=== PATIENT | male | born 1970 | race Caucasian/White ===

== ENCOUNTER 2016-08-02 13:39 | Emergency (ER) | payer MEDICAID ==
[2016-08-02] MEDS ORDERED: ONDANSETRON 4 MG/2 ML VIAL IVP STA (13:53)
[2016-08-02] MEDS ORDERED: LIDOCAINE VISCOUS 2% 15 ML UDC MM STA (13:53)
[2016-08-02] MEDS ORDERED: SODIUM CHLORIDE 0.9% 1,000 ML IV ONE (13:53)
[2016-08-02] MEDS ORDERED: MAG HYDROX/AL HYDROX/SIMETH 30 ML UDC PO STA (13:53)
[2016-08-02] MEDS ORDERED: HYDROmorphone 1 MG/ML SYRINGE IVP STA ×2 (13:53→14:48)
[2016-08-02] MEDS ORDERED: ONDANSETRON 4 MG/2 ML VIAL ONE (14:04)
[2016-08-02] MEDS ORDERED: MAG HYDROX/AL HYDROX/SIMETH 30 ML UDC ONE (14:04)
[2016-08-02] MEDS ORDERED: LIDOCAINE VISCOUS 2% 15 ML UDC MM ONE (14:04)
[2016-08-02] MEDS ORDERED: HYDROmorphone 1 MG/ML SYRINGE ONE ×2 (14:04→14:56)
[2016-08-02] MEDS ORDERED: PANTOPRAZOLE 40 MG VIAL IVP STA (14:48)
[2016-08-02] MEDS ORDERED: PANTOPRAZOLE 40 MG VIAL ONE (14:56)
== END 2016-08-02 15:28 | disposition home or self-care (01) ==
DX: K29.50 Unspecified chronic gastritis without bleeding (principal); R73.9 Hyperglycemia, unspecified; R03.0 Elevated blood-pressure reading, without diagnosis of hypertension; K21.9 Gastro-esophageal reflux disease without esophagitis; Z87.19 Personal history of other diseases of the digestive system; F17.200 Nicotine dependence, unspecified, uncomplicated
CPT/HCPCS: 36415; 80053; 80320; 83690; 85025; 96361; 96374; 96375; 96376; 99283; 99284; A9270; J1170

== ENCOUNTER 2017-01-17 08:06 | Outpatient (CLI) | payer MEDICAID ==
[2017-01-17 12:45] LABS: BASOPHILS % (AUTO) 0.5 %; EOSINOPHILS # (AUTO) 0.2 10^3/uL (0.0-0.7); EOSINOPHILS % (AUTO) 3.7 %; HCT - HEMATOCRIT 40.8 % (42.0-52.0); HGB - HEMOGLOBIN 14.3 g/dL (14.0-18.0); LYMPHOCYTES # (AUTO) 2.2 10^3/uL (1.5-3.5); LYMPHOCYTES % (AUTO) 35.1 %; MEAN CORPUSCULAR HEMOGLOBIN 32.6 pg (27.0-31.0); MEAN CORPUSCULAR HGB CONC 35.1 g/dL (32.0-36.0); MEAN PLATELET VOLUME 9.4 fL (7.4-11.4); MONOCYTES # (AUTO) 0.5 10^3/uL (0.0-1.0); MONOCYTES % (AUTO) 7.9 %; NEUTROPHILS # (AUTO) 3.2 10^3/uL (1.5-6.6); NEUTROPHILS % (AUTO) 52.8 %; RED BLOOD COUNT 4.39 10^6/uL (4.70-6.10); RED CELL DISTRIBUTION WIDTH 12.5 % (12.0-15.0); UNCORRECTED WHITE BLOOD COUNT 6.1 x10^3/uL; WHITE BLOOD COUNT 6.1 x10^3/uL (4.8-10.8)
[2017-01-17 13:49] LABS: CALCIUM 9.2 mg/dL (8.5-10.3); POTASSIUM 4.5 mmol/L (3.5-5.0)
[2017-01-17 14:19] LABS: HEMOGLOBIN A1C 0.75 g/dL
== END 2017-01-17 08:07 | disposition home or self-care (01) ==
LOC: LAB.N 08:06
PROVIDERS: ATTEND Physician Assistant
DX: E78.5 Hyperlipidemia, unspecified (principal); K86.1 Other chronic pancreatitis; E11.9 Type 2 diabetes mellitus without complications
CPT/HCPCS: 36415; 80048; 82043; 83036; 84443; 85025

== ENCOUNTER 2017-01-23 08:45 | Outpatient (CLI) | payer MEDICAID ==
[2017-01-23 14:38] LABS: CHOL/HDL RATIO 6.9 (<5.0); CHOLESTEROL 215 mg/dL; HDL CHOLESTEROL 31 mg/dL; TRIGLYCERIDES 512 mg/dL
[2017-01-23 14:59] LABS: LDL CHOLESTEROL,DIRECT 96 mg/dL
== END 2017-01-23 08:46 | disposition home or self-care (01) ==
LOC: LAB.N 08:45
PROVIDERS: ATTEND Physician Assistant
DX: E78.5 Hyperlipidemia, unspecified (principal)
CPT/HCPCS: 36415; 80061

== ENCOUNTER 2017-02-21 15:13 | Emergency (ER) | payer MEDICAID ==
[2017-02-21] MEDS ORDERED: SODIUM CHLORIDE 0.9% 1,000 ML IV ONE (15:29)
--- NOTE | 2017-02-21 15:32 | ED Physician Documentation ---
PD HPI ABD PAIN - Stated complaint Stated Complaint: ABD PX,NAUSEA - Chief complaint Chief Complaint: Abd Pain - History obtained from History obtained from: Patient - History of Present Illness Timing - onset: How many days ago (10) Timing - duration: Days (10) Timing - details: Gradual onset, Still present, Waxing and waning Quality: Sharp, Pain Location: Epigastric Improved by: Laying still Worsened by: Eating, Position, Palpation Associated symptoms: Nausea. No: Fever, Vomiting, Diarrhea, Constipation Similar symptoms before: Diagnosis (pancreatitis) Recently seen: Not recently seen - Additional information Additional information: 46-year-old male with a history of recurrent episodes of pancreatitis has stopped drinking about 8 months ago and over the past 10 days he is again developed symptoms of epigastric pain and nausea. He has not had any vomiting with this he has not had any diarrhea. He feels like he might be dehydrated. He has had this happen to him previously and hydration usual the helps. Review of Systems Constitutional: reports: Fatigue. denies: Fever, Chills Eyes: denies: Decreased vision Ears: denies: Ear pain Nose: denies: Congestion Throat: denies: Sore throat Cardiac: denies: Chest pain / pressure, Palpitations Respiratory: denies: Dyspnea, Cough GI: reports: Abdominal Pain, Nausea. denies: Vomiting, Constipation, Diarrhea : denies: Dysuria, Frequency Skin: denies: Rash Musculoskeletal: denies: Neck pain, Back pain, Extremity pain Neurologic: denies: Generalized weakness, Focal weakness, Numbness PD PAST MEDICAL HISTORY - Past Medical History Cardiovascular: None Respiratory: None Neuro: None Endocrine/Autoimmune: None GI: GERD, Hiatal hernia, Pancreatitis : None HEENT: None Psych: Depression Musculoskeletal: None Derm: None - Past Surgical History Past Surgical History: No Derm: Other - Present Medications Home Medications: Ambulatory Orders Medication Instructions Recorded Confirmed Omeprazole [PriLOSEC] 20 mg PO DAILY #14 capsule 08/02/16 02/21/17 Gemfibrozil 600 mg pe PO DAILY 02/21/17 02/21/17 Methadone 100 mg pe PO DAILY 02/21/17 02/21/17 Sucralfate [Carafate] 1 gm PO ACHS #300 ml 02/21/17 metFORMIN [Glucophage] 500 mg pe PO DAILY 08/23/17 08/23/17 - Allergies Allergies/Adverse Reactions: Allergies Allergy/AdvReac Type Severity Reaction Status Date / Time shellfish derived Allergy Respiratory Verified 03/15/16 20:50 - Social History Does the pt smoke?: Yes Smoking Status: Current every day smoker Does the pt drink ETOH?: No Does the pt have substance abuse?: No - Immunizations Immunizations are current?: Yes - POLST Patient has POLST: No PD ED PE NORMAL - Vitals Vital signs reviewed: Yes (hypertensive ) - General General: No acute distress, Well developed/nourished - HEENT HEENT: Atraumatic, PERRL - Neck Neck: Supple, no meningeal sign - Cardiac Cardiac: RRR, No murmur - Respiratory Respiratory: No respiratory distress, Clear bilaterally - Abdomen Abdomen: Normal bowel sounds, Soft, Other (epigastric tenderness without garding or rebound tenderness) - Back Back: No CVA TTP, No spinal TTP - Derm Derm: Normal color, Warm and dry, No rash - Extremities Extremities: No deformity, No edema - Neuro Neuro: No motor deficit, No sensory deficit - Psych Psych: Normal mood, Normal affect Results - Vitals Vitals: Vital Signs - 24 hr 02/21/17 02/21/17 15:17 17:35 Heart Rate 64 64 Respiratory 16 16 Rate Blood Pressure 133/85 H 114/72 O2 Saturation 99 97 Oxygen O2 Source Room air - Labs Labs: Laboratory Tests 02/21/17 02/21/17 15:40 15:40 WBC 5.9 RBC 3.80 L Hgb 12.3 L Hct 35.3 L MCV 92.9 MCH 32.5 H MCHC 34.9 RDW 12.7 Plt Count 167 MPV 8.8 Neut # 3.1 Lymph # 2.3 [place] # 0.4 Eos # 0.2 Baso # 0.0 Absolute Nucleated RBC 0.00 Nucleated RBCs 0.0 Sodium 136 Potassium 3.6 Chloride 106 Carbon Dioxide 23 Anion Gap 7.0 BUN 14 Creatinine 0.9 Estimated GFR (MDRD) 92 Glucose 103 H Calcium 9.0 Total Bilirubin 0.9 AST 51 H ALT 73 H Alkaline Phosphatase 88 Total Protein 6.8 Albumin 4.5 Globulin 2.3 Albumin/Globulin Ratio 2.0 Lipase 61 H Procedures - IVC sono (time) 1522 Bedside IVC sono: IVC measures (cm) (1.32), IVC collapsed c insp (cm) (complete) , Dehydration (mild) PD MEDICAL DECISION MAKING - ED course Complexity details: reviewed old records, reviewed results, re-evaluated patient , considered differential, d/w patient ED course: 46-year-old male with a prior history of alcohol related pancreatitis has developed again symptoms of epigastric pain and nausea.His lipase is 61 mildly elevated and he has not vomited while he is in the emergency department. He does have persistent pain in the epigastric region and he is administered viscous lidocaine and Mylanta with improvement in his pain. I suspect his pain is related to a gastritis and I have offered Carafate and recommended he take his omeprazole as previously prescribed. Departure - Departure Disposition: 01 Home, Self Care Clinical Impression: Gastritis Qualifiers: Gastritis type: unspecified gastritis Chronicity: acute Gastritis bleeding: without bleeding Qualified Code(s): K29.00 - Acute gastritis without bleeding Condition: Stable Instructions: ED PUD Vs Gastritis Follow-Up: Bob Bentley PA-C [Primary Care Provider] - Prescriptions: Sucralfate [Carafate] 1 gm PO ACHS #300 ml
[2017-02-21 15:47] LABS: BASOPHILS % (AUTO) 0.3 %; EOSINOPHILS # (AUTO) 0.2 10^3/uL (0.0-0.7); HCT - HEMATOCRIT 35.3 % (42.0-52.0); HGB - HEMOGLOBIN 12.3 g/dL (14.0-18.0); LYMPHOCYTES # (AUTO) 2.3 10^3/uL (1.5-3.5); MEAN CORPUSCULAR HEMOGLOBIN 32.5 pg (27.0-31.0); MEAN CORPUSCULAR HGB CONC 34.9 g/dL (32.0-36.0); MEAN CORPUSCULAR VOLUME 92.9 fL (80.0-94.0); MEAN PLATELET VOLUME 8.8 fL (7.4-11.4); MONOCYTES # (AUTO) 0.4 10^3/uL (0.0-1.0); MONOCYTES % (AUTO) 6.9 %; NEUTROPHILS # (AUTO) 3.1 10^3/uL (1.5-6.6); NEUTROPHILS % (AUTO) 51.8 %; RED CELL DISTRIBUTION WIDTH 12.7 % (12.0-15.0); UNCORRECTED WHITE BLOOD COUNT 5.9 x10^3/uL; WHITE BLOOD COUNT 5.9 x10^3/uL (4.8-10.8)
[2017-02-21 16:00] LABS: BILIRUBIN,TOTAL 0.9 mg/dL (0.2-1.0); CREATININE 0.9 mg/dL (0.6-1.2); POTASSIUM 3.6 mmol/L (3.5-5.0); TOTAL PROTEIN 6.8 g/dL (6.7-8.2)
[2017-02-21] MEDS ORDERED: PANTOPRAZOLE 40 MG VIAL IVP STA (17:20)
[2017-02-21] MEDS ORDERED: LIDOCAINE VISCOUS 2% 15 ML UDC MM STA (17:22)
[2017-02-21] MEDS ORDERED: MAG HYDROX/AL HYDROX/SIMETH 30 ML UDC PO STA (17:22)
[2017-02-21] MEDS ORDERED: PANTOPRAZOLE 40 MG VIAL ONE (17:32)
[2017-02-21] MEDS ORDERED: LIDOCAINE VISCOUS 2% 15 ML UDC MM ONE (17:33)
[2017-02-21] MEDS ORDERED: MAG HYDROX/AL HYDROX/SIMETH 30 ML UDC ONE (17:33)
[2017-02-21 17:37] VITALS: BP 114/72
== END 2017-02-21 18:23 | disposition home or self-care (01) ==
LOC: ED 15:13
DX: K29.00 Acute gastritis without bleeding (principal); Z87.19 Personal history of other diseases of the digestive system; F17.200 Nicotine dependence, unspecified, uncomplicated
CPT/HCPCS: 36415; 80053; 83690; 85025; 96361; 96374; 99283; 99284; A9270

== ENCOUNTER 2017-04-01 19:35 | Emergency (ER) | payer MEDICAID ==
[2017-04-01] MEDS ORDERED: HYDROmorphone 1 MG/ML CARPUJECT IVP STA ×3 (19:45→21:44)
[2017-04-01] MEDS ORDERED: SODIUM CHLORIDE 0.9% 1,000 ML IV ONE (19:45)
[2017-04-01] MEDS ORDERED: ONDANSETRON 4 MG/2 ML VIAL IVP STA (19:46)
[2017-04-01] MEDS ORDERED: HYDROmorphone 1 MG/ML CARPUJECT ONE ×3 (19:51→21:55)
[2017-04-01] MEDS ORDERED: LIDOCAINE VISCOUS 2% 15 ML UDC MM STA (20:03)
[2017-04-01] MEDS ORDERED: MAG HYDROX/AL HYDROX/SIMETH 30 ML UDC PO STA (20:03)
[2017-04-01] MEDS ORDERED: PANTOPRAZOLE 40 MG VIAL IVP STA (20:05)
[2017-04-01 20:06] LABS: BASOPHILS % (AUTO) 0.4 %; EOSINOPHILS # (AUTO) 0.2 10^3/uL (0.0-0.7); EOSINOPHILS % (AUTO) 3.7 %; HCT - HEMATOCRIT 39.1 % (42.0-52.0); HGB - HEMOGLOBIN 13.5 g/dL (14.0-18.0); LYMPHOCYTES # (AUTO) 2.9 10^3/uL (1.5-3.5); LYMPHOCYTES % (AUTO) 50.5 %; MEAN CORPUSCULAR HEMOGLOBIN 32.3 pg (27.0-31.0); MEAN CORPUSCULAR HGB CONC 34.5 g/dL (32.0-36.0); MEAN CORPUSCULAR VOLUME 93.6 fL (80.0-94.0); MEAN PLATELET VOLUME 9.1 fL (7.4-11.4); MONOCYTES # (AUTO) 0.4 10^3/uL (0.0-1.0); NEUTROPHILS # (AUTO) 2.2 10^3/uL (1.5-6.6); NEUTROPHILS % (AUTO) 38.4 %; RED BLOOD COUNT 4.18 10^6/uL (4.70-6.10); RED CELL DISTRIBUTION WIDTH 12.7 % (12.0-15.0); UNCORRECTED WHITE BLOOD COUNT 5.7 x10^3/uL; WHITE BLOOD COUNT 5.7 x10^3/uL (4.8-10.8)
--- NOTE | 2017-04-01 20:06 | ED Physician Documentation ---
PD HPI ABD PAIN - Stated complaint Stated Complaint: ABD PX - Chief complaint Chief Complaint: Abd Pain - History obtained from History obtained from: Patient - History of Present Illness Timing - onset: Other (46-year-old gentleman with recurrent pancreatitis and gastritis from prior alcohol use, has not had a drink in 10 months. He developed upper abdominal pain that is burning and severe in nature starting yesterday, started to go away this morning but then came back after eating today. The pain does not radiate. There is no vomiting.) Review of Systems Constitutional: denies: Fever, Chills Throat: denies: Dental pain / toothache, Sore throat Cardiac: denies: Chest pain / pressure, Palpitations Respiratory: denies: Dyspnea PD PAST MEDICAL HISTORY - Past Medical History Cardiovascular: None Respiratory: None Neuro: None Endocrine/Autoimmune: None GI: GERD, Hiatal hernia, Pancreatitis : None HEENT: None Psych: Depression Musculoskeletal: None Derm: None - Past Surgical History Past Surgical History: No Derm: Other - Present Medications Home Medications: Ambulatory Orders Medication Instructions Recorded Confirmed Omeprazole [PriLOSEC] 20 mg PO DAILY #14 capsule 08/02/16 02/21/17 Gemfibrozil 600 mg pe PO DAILY 02/21/17 02/21/17 Methadone 100 mg pe PO DAILY 02/21/17 02/21/17 Sucralfate [Carafate] 1 gm PO ACHS #300 ml 02/21/17 metFORMIN [Glucophage] 500 mg pe PO DAILY 02/21/17 02/21/17 Lansoprazole 30 mg PO BID #60 capsule. 04/01/17 Oxycodone HCl/Acetaminophen 1 - 2 tab PO Q4H PRN #10 tablet 04/01/17 [Percocet 5-325 mg Tablet] - Allergies Allergies/Adverse Reactions: Allergies Allergy/AdvReac Type Severity Reaction Status Date / Time shellfish derived Allergy Respiratory Verified 04/01/17 19:40 - Social History Does the pt smoke?: Yes Smoking Status: Current every day smoker Does the pt drink ETOH?: No Does the pt have substance abuse?: No - Immunizations Immunizations are current?: Yes - POLST Patient has POLST: No PD ED PE NORMAL - Vitals Vital signs reviewed: Yes - General General: Alert and oriented X 3, Other (uncomfortable) - HEENT HEENT: PERRL, EOMI - Neck Neck: Supple, no meningeal sign, No bony TTP - Cardiac Cardiac: RRR, No murmur - Respiratory Respiratory: No respiratory distress, Clear bilaterally - Abdomen Abdomen: Other (Mild upper abdominal tenderness with normal bowel tones and no surgical signs) - Back Back: No CVA TTP, No spinal TTP - Derm Derm: Normal color, Warm and dry, No rash - Extremities Extremities: No deformity, No tenderness to palpate, No edema, No calf tenderness / cord - Neuro Neuro: Alert and oriented X 3, Normal speech - Psych Psych: Normal mood, Normal affect Results - Vitals Vitals: Vital Signs - 24 hr 04/01/17 19:37 Temperature 36.8 C Heart Rate 79 Respiratory 15 Rate Blood Pressure 131/88 H O2 Saturation 100 Oxygen O2 Source Room air - Labs Labs: Laboratory Tests 04/01/17 04/01/17 19:57 19:57 WBC 5.7 RBC 4.18 L Hgb 13.5 L Hct 39.1 L MCV 93.6 MCH 32.3 H MCHC 34.5 RDW 12.7 Plt Count 175 MPV 9.1 Neut # 2.2 Lymph # 2.9 [place] # 0.4 Eos # 0.2 Baso # 0.0 Absolute Nucleated RBC 0.00 Nucleated RBC % 0.0 Sodium 138 Potassium 4.2 Chloride 99 L Carbon Dioxide 28 Anion Gap 11.0 BUN 19 Creatinine 1.0 Estimated GFR (MDRD) 81 L Glucose 142 H Calcium 9.7 Total Bilirubin 0.7 AST 47 H ALT 44 Alkaline Phosphatase 57 Total Protein 6.8 Albumin 4.9 Globulin 1.9 L Albumin/Globulin Ratio 2.6 H Lipase 121 H Ethyl Alcohol < 5.0 PD MEDICAL DECISION MAKING - ED course ED course: 46-year-old gentleman with history of alcoholic pancreatitis and chronic gastritis, currently noncompliant with his PPI presents with upper abdominal pain of days duration and relatively benign abdominal examination. His labs are fairly unimpressive, no white count, very mild elevation in lipase. After IV fluids and divided doses of pain medications, GI cocktail, and IV Protonix he was feeling much better and remains nontender prior to discharge. Departure - Departure Disposition: 01 Home, Self Care Clinical Impression: Gastritis Qualifiers: Gastritis type: unspecified gastritis Chronicity: acute Gastritis bleeding: without bleeding Qualified Code(s): K29.00 - Acute gastritis without bleeding Condition: Good Record reviewed to determine appropriate education?: Yes Instructions: ED PUD Vs Gastritis Prescriptions: Lansoprazole 30 mg PO BID #60 capsule. Oxycodone HCl/Acetaminophen [Percocet 5-325 mg Tablet] 1 - 2 tab PO Q4H PRN #10 tablet PRN Reason: Pain Comments: Call your doctor to arrange a follow-up appointment, make the next available appointment. In the interim, return anytime if worse or if new symptoms develop. Your blood pressure was elevated today on check into the emergency department. This does not mean that you have hypertension, it is a common phenomenon to come to the emergency department and have elevated blood pressure. I recommend that she see your primary care physician within the week to have it rechecked when you are feeling better.
[2017-04-01 20:21] LABS: ALBUMIN/GLOBULIN RATIO 2.6 (1.0-2.2); BILIRUBIN,TOTAL 0.7 mg/dL (0.2-1.0); BUN - BLOOD UREA NITROGEN 19 mg/dL (6-20); CALCIUM 9.7 mg/dL (8.5-10.3); CARBON DIOXIDE - CO2 28 mmol/L (21-32); CHLORIDE 99 mmol/L (101-111); GFR - MDRD 81 (>89); GLUCOSE 142 mg/dL (70-100); LIPASE 121 U/L (22-51); POTASSIUM 4.2 mmol/L (3.5-5.0); SODIUM 138 mmol/L (135-145); TOTAL PROTEIN 6.8 g/dL (6.7-8.2)
[2017-04-01] MEDS ORDERED: ONDANSETRON 4 MG/2 ML VIAL ONE (20:52)
[2017-04-01] MEDS ORDERED: LIDOCAINE VISCOUS 2% 15 ML UDC MM ONE (20:54)
[2017-04-01] MEDS ORDERED: PANTOPRAZOLE 40 MG VIAL ONE (20:54)
[2017-04-01] MEDS ORDERED: MAG HYDROX/AL HYDROX/SIMETH 30 ML UDC ONE (20:54)
[2017-04-01] MEDS ORDERED: SODIUM CHLORIDE FLUSH 0.9% 10 ML SYRINGE IVP ONE (21:13)
[2017-04-01 21:51] VITALS: BP 134/78
== END 2017-04-01 21:56 | disposition home or self-care (01) ==
LOC: ED 19:35
DX: K29.00 Acute gastritis without bleeding (principal); R03.0 Elevated blood-pressure reading, without diagnosis of hypertension; Z86.39 Personal history of other endocrine, nutritional and metabolic disease; K21.9 Gastro-esophageal reflux disease without esophagitis
CPT/HCPCS: 36415; 80053; 80320; 83690; 85025; 96361; 96374; 96375; 96376; 99283; 99284; A9270; J1170

== ENCOUNTER 2017-04-03 18:33 | Emergency (ER) | payer MEDICAID ==
[2017-04-03 18:47] VITALS: BP 139/85
== END 2017-04-03 21:21 | disposition left against medical advice (07) ==
LOC: ED 18:33
DX: Z53.21 Procedure and treatment not carried out due to patient leaving prior to being seen by health care provider (principal)

== ENCOUNTER 2017-10-31 08:12 | Outpatient (CLI) | payer MEDICAID ==
[2017-10-31 13:47] LABS: BASOPHILS % (AUTO) 0.3 %; EOSINOPHILS # (AUTO) 0.2 10^3/uL (0.0-0.7); EOSINOPHILS % (AUTO) 3.8 %; HGB - HEMOGLOBIN 12.4 g/dL (14.0-18.0); LYMPHOCYTES # (AUTO) 1.6 10^3/uL (1.5-3.5); LYMPHOCYTES % (AUTO) 37.1 %; MEAN CORPUSCULAR HEMOGLOBIN 32.2 pg (27.0-31.0); MEAN CORPUSCULAR HGB CONC 34.6 g/dL (32.0-36.0); MEAN PLATELET VOLUME 8.4 fL (7.4-11.4); MONOCYTES # (AUTO) 0.4 10^3/uL (0.0-1.0); MONOCYTES % (AUTO) 8.3 %; NEUTROPHILS # (AUTO) 2.2 10^3/uL (1.5-6.6); NEUTROPHILS % (AUTO) 50.5 %; PLT - PLATELET COUNT 244 10^3/uL (130-450); RED BLOOD COUNT 3.85 10^6/uL (4.70-6.10); RED CELL DISTRIBUTION WIDTH 12.4 % (12.0-15.0); WHITE BLOOD COUNT 4.4 x10^3/uL (4.8-10.8)
[2017-10-31 13:51] LABS: ALBUMIN 4.7 g/dL (3.2-5.5); ALBUMIN/GLOBULIN RATIO 1.9 (1.0-2.2); ALKALINE PHOSPHATASE 50 IU/L (42-121); ALT ALANINE AMINOTRANSFERASE 36 IU/L (10-60); AST ASPARTATE AMINOTRANSFERASE 31 IU/L (10-42); BILIRUBIN,TOTAL 0.6 mg/dL (0.2-1.0); BUN - BLOOD UREA NITROGEN 23 mg/dL (6-20); CALCIUM 9.2 mg/dL (8.5-10.3); CARBON DIOXIDE - CO2 27 mmol/L (21-32); CHLORIDE 99 mmol/L (101-111); CHOL/HDL RATIO 5.2 (<5.0); CHOLESTEROL 262 mg/dL; CREATININE 0.9 mg/dL (0.6-1.2); GFR - MDRD 91 (>89); GLUCOSE 122 mg/dL (70-100); HDL CHOLESTEROL 50 mg/dL; LDL CHOLESTEROL,CALCULATED 175 mg/dL; LDL/HDL RATIO 3.5 (<3.6); SODIUM 133 mmol/L (135-145); TOTAL PROTEIN 7.2 g/dL (6.7-8.2); VLDL CHOLESTEROL 37 mg/dL
[2017-10-31 14:09] LABS: HB2 TOTAL 13.4 g/dL; HEMOGLOBIN A1C 0.69 g/dL; HEMOGLOBIN A1C % 6.9 % (4.6-6.2)
== END 2017-10-31 08:13 | disposition home or self-care (01) ==
LOC: LAB.N 08:12
PROVIDERS: ATTEND Physician Assistant Medical
DX: E78.5 Hyperlipidemia, unspecified (principal); E78.1 Pure hyperglyceridemia; E11.9 Type 2 diabetes mellitus without complications; R03.0 Elevated blood-pressure reading, without diagnosis of hypertension; F10.21 Alcohol dependence, in remission; F17.210 Nicotine dependence, cigarettes, uncomplicated; F33.9 Major depressive disorder, recurrent, unspecified
CPT/HCPCS: 36415; 80053; 80061; 82043; 83036; 83721; 85025

== ENCOUNTER 2018-01-13 15:21 | Emergency (ER) | payer OTHER, MEDICAID ==
--- NOTE | 2018-01-13 15:46 | ED Physician Documentation ---
PD HPI SKIN - Stated complaint Stated Complaint: RASH - Chief complaint Chief Complaint: Allergic Rx - History obtained from History obtained from: Patient - History of Present Illness Timing - onset: How many days ago (3) Timing - duration: Days (3) Timing - details: Gradual onset, Still present Location: Bodywide Quality / character: Itchy, Burning. No: Vesicular Improved by: No: Benadryl Associated symptoms: No: Fever, Myalgias, Headache, Dyspnea, N/V/D Contributing factors: No: Exposed to medication, Exposed to food, Insect bite / sting, Recent illness Similar symptoms before: Has not had sx before Recently seen: Not recently seen Review of Systems Constitutional: denies: Fever Nose: denies: Rhinorrhea / runny nose, Congestion Throat: reports: Sore throat (mild today) Cardiac: denies: Chest pain / pressure, Palpitations Respiratory: denies: Dyspnea, Cough, Wheezing GI: denies: Abdominal Pain, Nausea, Vomiting Skin: reports: Rash Neurologic: denies: Generalized weakness, Near syncope PD PAST MEDICAL HISTORY - Past Medical History Cardiovascular: None Respiratory: None Endocrine/Autoimmune: None GI: GERD, Hiatal hernia, Pancreatitis : None HEENT: None Psych: Depression Musculoskeletal: None Derm: None - Past Surgical History Past Surgical History: No Derm: Other - Present Medications Home Medications: Ambulatory Orders Medication Instructions Recorded Confirmed Omeprazole [PriLOSEC] 20 mg PO DAILY #14 capsule 08/02/16 02/21/17 Methadone 100 mg pe PO DAILY 02/21/17 02/21/17 metFORMIN [Glucophage] 500 mg pe PO DAILY 02/21/17 02/21/17 Cetirizine [ZyrTEC] 10 mg PO DAILY #15 tablet 01/13/18 Dexamethasone [Decadron] 4 mg PO DAILY #7 tablet 01/13/18 Famotidine [Pepcid] 20 mg PO ONCE #15 tablet 01/13/18 - Allergies Allergies/Adverse Reactions: Allergies Allergy/AdvReac Type Severity Reaction Status Date / Time shellfish derived Allergy Respiratory Verified 04/03/17 18:46 - Social History Does the pt smoke?: Yes Smoking Status: Current every day smoker Does the pt drink ETOH?: No Does the pt have substance abuse?: No - Immunizations Immunizations are current?: Yes - POLST Patient has POLST: No PD ED PE NORMAL - Vitals Vital signs reviewed: Yes - General General: Alert and oriented X 3, Well developed/nourished - HEENT HEENT: Ears normal, Other (throat exam shows mild edema of uvula. Else appears normal. ) - Neck Neck: Supple, no meningeal sign, No adenopathy - Cardiac Cardiac: RRR, No murmur - Respiratory Respiratory: Clear bilaterally - Abdomen Abdomen: Soft, Non tender - Derm Derm: Warm and dry, Other (diffuse patchy hives appearing rash. No vesicles seen. ) - Neuro Neuro: Alert and oriented X 3, No motor deficit, Normal speech Results - Vitals Vitals: Vital Signs - 24 hr 01/13/18 01/13/18 15:36 16:20 Temperature 36.6 C 36.7 C Heart Rate 100 90 Respiratory 16 18 Rate Blood Pressure 120/78 112/76 O2 Saturation 97 98 Oxygen O2 Source Room air PD MEDICAL DECISION MAKING - ED course Complexity details: considered differential (no obvious trigger for the reaction. ), d/w patient - Sepsis Event Vital Signs: Vital Signs - 24 hr 01/13/18 01/13/18 15:36 16:20 Temperature 36.6 C 36.7 C Heart Rate 100 90 Respiratory 16 18 Rate Blood Pressure 120/78 112/76 O2 Saturation 97 98 Oxygen O2 Source Room air Departure - Departure Disposition: 01 Home, Self Care Clinical Impression: Allergic reaction Qualifiers: Encounter type: initial encounter Qualified Code(s): T78.40XA - Allergy, unspecified, initial encounter Condition: Stable Record reviewed to determine appropriate education?: Yes Instructions: ED Allergic Reaction General Other Follow-Up: Geronimo Dooley PA-C [Primary Care Provider] - Prescriptions: Cetirizine [ZyrTEC] 10 mg PO DAILY #15 tablet Dexamethasone [Decadron] 4 mg PO DAILY #7 tablet Famotidine [Pepcid] 20 mg PO ONCE #15 tablet Comments: Often it is hard to identify the exact cause of an allergic reaction like this. We typically treated with antihistamines and steroids. Use cetirizine and famotidine antihistamines daily for the next week or 2. Add Benadryl short acting antihistamine every 6 hours if needed for itching and rash. Decadron daily for the next week which is a steroid to decrease the immune over response. Recheck if not improving over the next couple of days. Commonly this will go away and stay away. If it does not want to completely resolve or comes back soon in the near future, then it might require some allergy testing or such to figure out the trigger. Discharge Date/Time: 01/13/18 16:20
[2018-01-13] MEDS ORDERED: CETIRIZINE 10 MG TABLET PO STA (16:01)
[2018-01-13] MEDS ORDERED: DEXAMETHASONE 10 MG/ML VIAL PO STA (16:01)
[2018-01-13] MEDS ORDERED: FAMOTIDINE 20 MG TABLET PO STA (16:01)
[2018-01-13 16:23] VITALS: BP 112/76
== END 2018-01-13 16:20 | disposition home or self-care (01) ==
LOC: ED 15:21
DX: T78.40XA Allergy, unspecified, initial encounter (principal); F17.200 Nicotine dependence, unspecified, uncomplicated
CPT/HCPCS: 99283; A9270

== ENCOUNTER 2018-03-11 17:00 | Emergency (ER) | payer OTHER, MEDICAID ==
[2018-03-11 18:16] LABS: BASOPHILS % (AUTO) 0.2 %; EOSINOPHILS # (AUTO) 0.2 10^3/uL (0.0-0.7); EOSINOPHILS % (AUTO) 2.5 %; HGB - HEMOGLOBIN 12.5 g/dL (14.0-18.0); LYMPHOCYTES # (AUTO) 1.3 10^3/uL (1.5-3.5); LYMPHOCYTES % (AUTO) 15.9 %; MEAN CORPUSCULAR HEMOGLOBIN 32.4 pg (27.0-31.0); MEAN CORPUSCULAR HGB CONC 35.1 g/dL (32.0-36.0); MEAN CORPUSCULAR VOLUME 92.4 fL (80.0-94.0); MEAN PLATELET VOLUME 8.2 fL (7.4-11.4); MONOCYTES # (AUTO) 0.7 10^3/uL (0.0-1.0); MONOCYTES % (AUTO) 8.5 %; NEUTROPHILS # (AUTO) 5.9 10^3/uL (1.5-6.6); NEUTROPHILS % (AUTO) 72.9 %; PLT - PLATELET COUNT 221 10^3/uL (130-450); RED BLOOD COUNT 3.85 10^6/uL (4.70-6.10); RED CELL DISTRIBUTION WIDTH 12.3 % (12.0-15.0); WHITE BLOOD COUNT 8.1 x10^3/uL (4.8-10.8)
[2018-03-11 18:28] LABS: ALBUMIN 4.8 g/dL (3.2-5.5); ALBUMIN/GLOBULIN RATIO 1.5 (1.0-2.2); ALKALINE PHOSPHATASE 71 IU/L (42-121); ALT ALANINE AMINOTRANSFERASE 31 IU/L (10-60); AST ASPARTATE AMINOTRANSFERASE 20 IU/L (10-42); BILIRUBIN,TOTAL 0.6 mg/dL (0.2-1.0); BUN - BLOOD UREA NITROGEN 25 mg/dL (6-20); CALCIUM 9.8 mg/dL (8.5-10.3); CARBON DIOXIDE - CO2 30 mmol/L (21-32); CHLORIDE 95 mmol/L (101-111); GFR - MDRD 81 (>89); GLUCOSE 189 mg/dL (70-100); LIPASE 97 U/L (22-51); MAGNESIUM 2.2 mg/dL (1.7-2.8); SODIUM 134 mmol/L (135-145); TOTAL PROTEIN 8.1 g/dL (6.7-8.2)
[2018-03-11] MEDS ORDERED: ONDANSETRON 4 MG/2 ML VIAL IVP STA (18:51)
[2018-03-11] MEDS ORDERED: SODIUM CHLORIDE 0.9% 2,000 ML IV ONE (18:51)
[2018-03-11] MEDS ORDERED: HYDROmorphone 2 MG/ML VIAL IVP STA (18:51)
--- NOTE | 2018-03-11 18:54 | ED Physician Documentation ---
PD HPI ABD PAIN - Stated complaint Stated Complaint: BILAT LEG PX - Chief complaint Chief Complaint: Abd Pain - History obtained from History obtained from: Patient, Family - History of Present Illness Timing - onset: Other (47-year-old gentleman with recurrent alcoholic pancreatitis although has not had an alcoholic beverage in about 1.8 years presents with 4 days of epigastric and right upper quadrant pain consistent with prior episodes of pancreatitis. Because of that he has not been eating or drinking well and today developed right thigh cramps that are intermittent but at times severe.) Review of Systems Constitutional: denies: Fever, Chills GI: reports: Abdominal Pain, Nausea, Vomiting (once). denies: Diarrhea, Hematemesis : denies: Dysuria, Frequency PD PAST MEDICAL HISTORY - Past Medical History Cardiovascular: None Respiratory: None Endocrine/Autoimmune: None GI: GERD, Hiatal hernia, Pancreatitis : None HEENT: None Psych: Depression Musculoskeletal: None Derm: None - Past Surgical History Past Surgical History: No Derm: Other - Present Medications Home Medications: Ambulatory Orders Medication Instructions Recorded Confirmed Omeprazole [PriLOSEC] 20 mg PO DAILY #14 capsule 08/02/16 02/21/17 Methadone 100 mg pe PO DAILY 02/21/17 02/21/17 metFORMIN [Glucophage] 500 mg pe PO DAILY 02/21/17 02/21/17 Cetirizine [ZyrTEC] 10 mg PO DAILY #15 tablet 01/13/18 Dexamethasone [Decadron] 4 mg PO DAILY #7 tablet 01/13/18 Famotidine [Pepcid] 20 mg PO ONCE #15 tablet 01/13/18 - Allergies Allergies/Adverse Reactions: Allergies Allergy/AdvReac Type Severity Reaction Status Date / Time shellfish derived Allergy Respiratory Verified 04/03/17 18:46 - Social History Does the pt smoke?: Yes Smoking Status: Current every day smoker Does the pt drink ETOH?: No Does the pt have substance abuse?: No - Immunizations Immunizations are current?: Yes - POLST Patient has POLST: No PD ED PE NORMAL - Vitals Vital signs reviewed: Yes - General General: Alert and oriented X 3, No acute distress - Abdomen Abdomen: Normal bowel sounds, Soft, Non tender - Extremities Extremities: No deformity, No tenderness to palpate, No edema, No calf tenderness / cord - Neuro Neuro: Alert and oriented X 3 - Psych Psych: Normal mood, Normal affect Results - Vitals Vitals: Vital Signs - 24 hr 03/11/18 17:29 Temperature 37.2 C Heart Rate 101 H Respiratory 18 Rate Blood Pressure 126/97 H O2 Saturation 100 Oxygen O2 Source Room air - Labs Labs: Laboratory Tests 03/11/18 03/11/18 18:10 18:10 WBC 8.1 RBC 3.85 L Hgb 12.5 L Hct 35.6 L MCV 92.4 MCH 32.4 H MCHC 35.1 RDW 12.3 Plt Count 221 MPV 8.2 Neut # (Auto) 5.9 Lymph # (Auto) 1.3 L [place] # (Auto) 0.7 Eos # (Auto) 0.2 Baso # (Auto) 0.0 Absolute Nucleated RBC 0.00 Nucleated RBC % 0.0 Sodium 134 L Potassium 4.8 Chloride 95 L Carbon Dioxide 30 Anion Gap 9.0 BUN 25 H Creatinine 1.0 Estimated GFR (MDRD) 81 L Glucose 189 H Calcium 9.8 Magnesium 2.2 Total Bilirubin 0.6 AST 20 ALT 31 Alkaline Phosphatase 71 Total Protein 8.1 Albumin 4.8 Globulin 3.3 Albumin/Globulin Ratio 1.5 Lipase 97 H Ethyl Alcohol < 5.0 PD MEDICAL DECISION MAKING - ED course ED course: Sounds like he is having an episode of recurrent pancreatitis albeit without clear trigger that has caused him to have little p.o. intake and become dehydrated based on high BUN which probably caused the leg cramps. He is given IV fluid resuscitation. After IV fluids and a dose of Ativan he had no further leg cramping and his abdominal pain was much better, on repeat examination at 8:40 PM he remained nontender to palpation regarding his abdomen exam. - Sepsis Event Vital Signs: Vital Signs - 24 hr 03/11/18 17:29 Temperature 37.2 C Heart Rate 101 H Respiratory 18 Rate Blood Pressure 126/97 H O2 Saturation 100 Oxygen O2 Source Room air Departure - Departure Disposition: 01 Home, Self Care Clinical Impression: Chronic abdominal pain, Dehydration, Leg cramp Condition: Good Record reviewed to determine appropriate education?: Yes Instructions: Abdominal Pain Comments: Call your doctor to arrange a follow-up appointment, make the next available appointment. In the interim, return anytime if worse or if new symptoms develop. Your blood pressure was elevated today on check into the emergency department. This does not mean that you have hypertension, it is a common phenomenon to come to the emergency department and have elevated blood pressure. I recommend that you see your primary care physician within the week to have it rechecked when you are feeling better.
[2018-03-11] MEDS ORDERED: LORazepam 2 MG/ML VIAL IVP STA (20:05)
[2018-03-11] MEDS ORDERED: HYDROmorphone 1 MG/ML CARPUJECT IVP STA (20:45)
[2018-03-11 20:58] VITALS: BP 112/71
== END 2018-03-11 21:34 | disposition home or self-care (01) ==
LOC: ED 17:00
DX: G89.29 Other chronic pain (principal); R10.9 Unspecified abdominal pain; E86.0 Dehydration; R25.2 Cramp and spasm; F17.200 Nicotine dependence, unspecified, uncomplicated
CPT/HCPCS: 36415; 80053; 80320; 83690; 83735; 85025; 96374; 96375; 96376; 99283; J1170; J2060

== ENCOUNTER 2018-03-19 13:41 | Emergency (ER) | payer OTHER, MEDICAID ==
[2018-03-19 14:26] LABS: BASOPHILS % (AUTO) 0.4 %; EOSINOPHILS # (AUTO) 0.2 10^3/uL (0.0-0.7); EOSINOPHILS % (AUTO) 2.3 %; HGB - HEMOGLOBIN 12.2 g/dL (14.0-18.0); LYMPHOCYTES # (AUTO) 2.1 10^3/uL (1.5-3.5); LYMPHOCYTES % (AUTO) 28.6 %; MEAN CORPUSCULAR VOLUME 91.5 fL (80.0-94.0); MEAN PLATELET VOLUME 7.7 fL (7.4-11.4); MONOCYTES # (AUTO) 0.4 10^3/uL (0.0-1.0); MONOCYTES % (AUTO) 5.3 %; NEUTROPHILS # (AUTO) 4.6 10^3/uL (1.5-6.6); NEUTROPHILS % (AUTO) 63.4 %; PLT - PLATELET COUNT 281 10^3/uL (130-450); RED CELL DISTRIBUTION WIDTH 12.2 % (12.0-15.0); WHITE BLOOD COUNT 7.2 x10^3/uL (4.8-10.8)
[2018-03-19 14:26] LABS: BILIRUBIN,URINE NEGATIVE (NEGATIVE); GLUCOSE, URINE (UA) 250 mg/dL (NEGATIVE); KETONES,URINE (UA) TRACE mg/dL (NEGATIVE); LEUKOCYTE ESTERASE, URINE NEGATIVE (NEGATIVE); NITRITE,URINE NEGATIVE (NEGATIVE); OCCULT BLOOD,URINE TRACE-INTA (NEGATIVE); PROTEIN,URINE TRACE mg/dL (NEGATIVE); UROBILINOGEN,URINE 0.2 (NORMAL) E.U./dL (NORMAL)
[2018-03-19 14:27] LABS: CLARITY,URINE CLEAR (CLEAR)
[2018-03-19 14:43] LABS: ALBUMIN 4.6 g/dL (3.2-5.5); ALBUMIN/GLOBULIN RATIO 1.7 (1.0-2.2); ALKALINE PHOSPHATASE 69 IU/L (42-121); ALT ALANINE AMINOTRANSFERASE < 10 IU/L (10-60); AST ASPARTATE AMINOTRANSFERASE 18 IU/L (10-42); BILIRUBIN,TOTAL 0.4 mg/dL (0.2-1.0); BUN - BLOOD UREA NITROGEN 20 mg/dL (6-20); CALCIUM 9.4 mg/dL (8.5-10.3); CARBON DIOXIDE - CO2 27 mmol/L (21-32); CHLORIDE 96 mmol/L (101-111); CREATININE 1.3 mg/dL (0.6-1.2); GFR - MDRD 60 (>89); GLUCOSE 215 mg/dL (70-100); LIPASE 86 U/L (22-51); SODIUM 132 mmol/L (135-145); TOTAL PROTEIN 7.3 g/dL (6.7-8.2)
--- NOTE | 2018-03-19 16:58 | ED Physician Documentation ---
History of Present Illness - Stated complaint Stated Complaint: RT SIDE ABD PX - Chief complaint Chief Complaint: Abd Pain - Additonal information Additional information: hx from pt 2.5 weeks of right sided abd pain no fever nausea controlled with zofran no diarrhea not changed by eating worse with walking no prior surgery hx pancreatitis but this feel diff no know gallstones Review of Systems Constitutional: denies: Fever, Chills Cardiac: denies: Chest pain / pressure Respiratory: denies: Dyspnea GI: reports: Abdominal Pain, Nausea. denies: Vomiting, Diarrhea : denies: Dysuria, Hematuria Musculoskeletal: denies: Back pain Endocrine: denies: Easy bruising / bleeding Immunocompromised: denies: Immunocompromised PD PAST MEDICAL HISTORY - Past Medical History Cardiovascular: None Respiratory: None Endocrine/Autoimmune: None GI: GERD, Hiatal hernia, Pancreatitis : None HEENT: None Psych: Depression Musculoskeletal: None Derm: None - Past Surgical History Past Surgical History: No Derm: Other - Present Medications Home Medications: Ambulatory Orders Medication Instructions Recorded Confirmed Omeprazole [PriLOSEC] 20 mg PO DAILY #14 capsule 08/02/16 02/21/17 Methadone 100 mg pe PO DAILY 02/21/17 02/21/17 metFORMIN [Glucophage] 500 mg pe PO DAILY 02/21/17 02/21/17 Cetirizine [ZyrTEC] 10 mg PO DAILY #15 tablet 01/13/18 Dexamethasone [Decadron] 4 mg PO DAILY #7 tablet 01/13/18 Famotidine [Pepcid] 20 mg PO ONCE #15 tablet 03/19/18 Sucralfate 1 gm PO ACHS #120 tablet 03/19/18 - Allergies Allergies/Adverse Reactions: Allergies Allergy/AdvReac Type Severity Reaction Status Date / Time shellfish derived Allergy Respiratory Verified 03/19/18 13:49 - Social History Does the pt smoke?: Yes Smoking Status: Current every day smoker Does the pt drink ETOH?: No Does the pt have substance abuse?: No Additional Social History: out of pepcid and omaprazole at this time - Immunizations Immunizations are current?: Yes - POLST Patient has POLST: No PD ED PE NORMAL - Vitals Vital signs reviewed: Yes - Neck Neck: Supple, no meningeal sign - Cardiac Cardiac: RRR - Respiratory Respiratory: No respiratory distress, Clear bilaterally - Abdomen Abdomen: Soft, Other (minimal mid right abd pain, no rebound or guarding) - Derm Derm: Normal color - Neuro Neuro: Alert and oriented X 3 Results - Vitals Vitals: Vital Signs - 24 hr 03/19/18 03/19/18 03/19/18 13:44 15:33 16:43 Temperature 36.2 C L Heart Rate 90 87 77 Respiratory 16 18 18 Rate Blood Pressure 104/62 94/69 106/78 O2 Saturation 99 97 98 03/19/18 18:51 Temperature Heart Rate 69 Respiratory 12 Rate Blood Pressure 104/74 O2 Saturation 98 Oxygen O2 Source Room air - Tele (time rhythm occurred) 1850 Telemetry / rhythm strip: Other (no prolonged QT - checked because pt is prescribed zofran and methadone) - Labs Labs: Laboratory Tests 03/19/18 03/19/18 03/19/18 13:57 14:17 14:17 WBC 7.2 RBC 3.80 L Hgb 12.2 L Hct 34.8 L MCV 91.5 MCH 32.0 H MCHC 35.0 RDW 12.2 Plt Count 281 MPV 7.7 Neut # (Auto) 4.6 Lymph # (Auto) 2.1 [place] # (Auto) 0.4 Eos # (Auto) 0.2 Baso # (Auto) 0.0 Absolute Nucleated RBC 0.00 Nucleated RBC % 0.0 Sodium 132 L Potassium 4.6 Chloride 96 L Carbon Dioxide 27 Anion Gap 9.0 BUN 20 Creatinine 1.3 H Estimated GFR (MDRD) 60 L Glucose 215 H Calcium 9.4 Total Bilirubin 0.4 AST 18 ALT < 10 L Alkaline Phosphatase 69 Total Protein 7.3 Albumin 4.6 Globulin 2.7 Albumin/Globulin Ratio 1.7 Lipase 86 H Urine Color YELLOW Urine Clarity CLEAR Urine pH 6.0 Ur Specific [place] >=1.030 H Urine Protein TRACE Urine Glucose (UA) 250 H Urine Ketones TRACE Urine Occult Blood TRACE-INTA Urine Nitrite NEGATIVE Urine Bilirubin NEGATIVE Urine Urobilinogen 0.2 (NORMAL) Ur Leukocyte Esterase NEGATIVE Ur Microscopic Review NOT INDICATED Urine Culture Comments NOT INDICATED - Rads (name of study) CT AP Radiology: See rad report (acute on chronic pancreatiti, possible pancreatic mass vs inflammation, large hiatal hernia, no appy or bowel obstruction) PD MEDICAL DECISION MAKING - Sepsis Event Vital Signs: Vital Signs - 24 hr 09/03/19/18 03/19/18 13:44 15:33 16:43 Temperature 36.2 C L Heart Rate 90 87 77 Respiratory 16 18 18 Rate Blood Pressure 104/62 94/69 106/78 O2 Saturation 99 97 98 03/19/18 18:51 Temperature Heart Rate 69 Respiratory 12 Rate Blood Pressure 104/74 O2 Saturation 98 Oxygen O2 Source Room air Departure - Departure Disposition: 01 Home, Self Care Clinical Impression: Hiatal hernia Pancreatitis Qualifiers: Chronicity: acute Pancreatitis type: unspecified pancreatitis type Acute pancreatitis complication: unspecified Qualified Code(s): K85.90 - Acute pancreatitis without necrosis or infection, unspecified Instructions: Hiatal Hernia, ED Diet Clear Liquid, ED Pancreatitis Follow-Up: Albert Epperson MD [Provider Admit Priv/Credential] - Prescriptions: Famotidine [Pepcid] 20 mg PO ONCE #15 tablet Sucralfate 1 gm PO ACHS #120 tablet Comments: The CT scan shows a hiatal hernia and also acute exacerbation of your chronic pancreatitis. No gallbladder problems were seen. The radiologist is concerned there may be a mass in your pancreas - it could just be inflammation for the pancreatitis but the radiologist recommends you get a MRI - please have your PMD order this. I think you can go home at this time, but I recommend you stay on a clear liquid diet for the next three days to rest your pancreas. Continue your methadone for pain and zofran for vomiting I prescribed zantac and carafate to ease the pain from the hiatal hernia. And I also referred you to the surgical clinic for further evaluation of the hiatal hernia Forms: Activity restrictions
--- NOTE | 2018-03-19 18:01 | CT Report ---
Reason: abd pain right side Procedure Date: 03/19/2018 Accession Number: [id number] / [id number] Procedure: CT - Abdomen/Pelvis W/O CPT Code: FULL RESULT: EXAM: CT ABDOMEN AND PELVIS EXAM DATE: 03/19/2018 05:36 PM. CLINICAL HISTORY: Abd pain right side. COMPARISONS: ABDOMEN/PELVIS W/ 02/28/2016 4:42 PM. TECHNIQUE: Routine axial helical CT imaging was performed through the abdomen and pelvis without IV contrast. Reconstructions: Coronal and sagittal. In accordance with CT protocol optimization, one or more of the following dose reduction techniques were utilized for this exam: automated exposure control, adjustment of mA and/or KV based on patient size, or use of iterative reconstructive technique. FINDINGS: Lung Bases: Unremarkable. Abdominal Organs: The liver, spleen, adrenal glands, and kidneys demonstrate no acute abnormalities. There is chronic pancreatitis. There is ill-defined, heterogeneous soft tissue density within the pancreatic head region (image 29 series 3). Gallbladder/bile ducts: No significant abnormalities. Peritoneal Cavity: There is a large hiatal hernia. Small bowel demonstrates no acute abnormalities. There is moderate to large volume stool within colon. No evidence of appendicitis. No intraperitoneal free air or free fluid. No enlarged mesenteric or retroperitoneal lymph nodes. Pelvic Organs: No bladder stones or wall thickening. Noncontrast images of the visualized pelvic organs are unremarkable. Vasculature: Unremarkable. Other: None. IMPRESSION: 1 . There is chronic pancreatitis. There is suggestion of mild peripancreatic fat stranding which could represent acute pancreatitis. 2. There is ill-defined soft tissue density within the pancreatic head/uncinate process region which is difficult to separate from adjacent structures. This could be secondary to pancreatic inflammation. Pancreatic mass is not excluded on this study. Nonemergent pancreatic MRI could be used for further evaluation as indicated. 3. There is a large hiatal hernia. 4. There is moderate to large volume stool within colon. 5. No evidence of appendicitis or bowel obstruction.
[2018-03-19] MEDS ORDERED: ONDANSETRON 4 MG/2 ML VIAL IVP STA (18:24)
[2018-03-19] MEDS ORDERED: ACETAMINOPHEN 1,000 MG/100 ML 100 ML IV STA (18:27)
[2018-03-19] MEDS ORDERED: KETOROLAC 60 MG/2 ML VIAL IVP STA (18:28)
[2018-03-19] MEDS ORDERED: FAMOTIDINE 20 MG/50 ML 50 ML IV ONE (18:31)
[2018-03-19 18:53] VITALS: BP 104/74
[2018-03-19] MEDS: MORPHINE 2 MG/ML CARPUJECT IVP STA ×2 (19:13→19:23)
== END 2018-03-19 19:33 | disposition home or self-care (01) ==
LOC: ED 13:41
DX: K44.9 Diaphragmatic hernia without obstruction or gangrene (principal); K85.90 Acute pancreatitis without necrosis or infection, unspecified; F17.200 Nicotine dependence, unspecified, uncomplicated
CPT/HCPCS: 36415; 74176; 80053; 81003; 83690; 85025; 96365; 96375; 99283; 99284; J0131; 81001; 87086

== ENCOUNTER 2018-03-23 00:09 | Inpatient (IN) | payer OTHER, MEDICAID ==
[2018-03-23] MEDS ORDERED: SODIUM CHLORIDE 0.9% 1,000 ML IV ONE (00:18)
[2018-03-23 00:46] LABS: BASOPHILS % (AUTO) 0.7 %; EOSINOPHILS # (AUTO) 0.2 10^3/uL (0.0-0.7); EOSINOPHILS % (AUTO) 3.8 %; HGB - HEMOGLOBIN 11.7 g/dL (14.0-18.0); LYMPHOCYTES # (AUTO) 1.4 10^3/uL (1.5-3.5); LYMPHOCYTES % (AUTO) 32.2 %; MEAN CORPUSCULAR HEMOGLOBIN 32.3 pg (27.0-31.0); MEAN CORPUSCULAR HGB CONC 35.2 g/dL (32.0-36.0); MEAN CORPUSCULAR VOLUME 91.7 fL (80.0-94.0); MEAN PLATELET VOLUME 8.3 fL (7.4-11.4); MONOCYTES # (AUTO) 0.4 10^3/uL (0.0-1.0); MONOCYTES % (AUTO) 9.8 %; NEUTROPHILS # (AUTO) 2.4 10^3/uL (1.5-6.6); NEUTROPHILS % (AUTO) 53.5 %; PLT - PLATELET COUNT 242 10^3/uL (130-450); RED BLOOD COUNT 3.64 10^6/uL (4.70-6.10); RED CELL DISTRIBUTION WIDTH 12.2 % (12.0-15.0); WHITE BLOOD COUNT 4.5 x10^3/uL (4.8-10.8)
[2018-03-23 00:57] LABS: ALBUMIN 4.3 g/dL (3.2-5.5); ALBUMIN/GLOBULIN RATIO 1.6 (1.0-2.2); BILIRUBIN,TOTAL 0.6 mg/dL (0.2-1.0); CALCIUM 9.3 mg/dL (8.5-10.3); CREATININE 0.9 mg/dL (0.6-1.2)
[2018-03-23] MEDS ORDERED: diphenhydrAMINE INJ 50 MG/ML VIAL IVP STA (01:04)
[2018-03-23] MEDS ORDERED: HYDROmorphone 1 MG/ML CARPUJECT IVP STA (01:04)
[2018-03-23] MEDS ORDERED: PROMETHAZINE INJ 25 MG in SODIUM CHLORIDE 0.9% 50 ML IV STA (01:04)
[2018-03-23 01:22] LABS: BILIRUBIN,URINE NEGATIVE (NEGATIVE); GLUCOSE, URINE (UA) >=1000 mg/dL (NEGATIVE); KETONES,URINE (UA) NEGATIVE (NEGATIVE); LEUKOCYTE ESTERASE, URINE NEGATIVE (NEGATIVE); NITRITE,URINE NEGATIVE (NEGATIVE); OCCULT BLOOD,URINE SMALL (NEGATIVE); PROTEIN,URINE NEGATIVE (NEGATIVE); UROBILINOGEN,URINE 2 E.U./dL (NORMAL)
[2018-03-23 01:23] LABS: CLARITY,URINE CLEAR (CLEAR)
[2018-03-23 01:27] LABS: BACTERIA,URINE None Seen /HPF (None Seen); SQUAMOUS EPITHELIAL CELL,UR MOD Squamous (<= Few)
[2018-03-23] MEDS ORDERED: IOPAMIDOL-300 50 ML VIAL ONE (01:33)
[2018-03-23] MEDS ORDERED: IOPAMIDOL-300 100 ML VIAL ONE (01:34)
[2018-03-23] MEDS ORDERED: HYDROmorphone 2 MG/ML VIAL IVP STA (02:25)
[2018-03-23] MEDS ORDERED: IOPAMIDOL-300 100 ML VIAL IVP ONE (02:29)
[2018-03-23] MEDS ORDERED: IOPAMIDOL-300 50 ML VIAL PO ONE (02:29)
--- NOTE | 2018-03-23 03:09 | ED Physician Documentation ---
PD HPI ABD PAIN - Stated complaint Stated Complaint: ABD PX - Chief complaint Chief Complaint: Abd Pain - History obtained from History obtained from: Patient - Additional information Additional information: 47-year-old male presents the emergency department with increasing epigastric pain over the past several days. The patient was recently seen in the emergency department and diagnosed with pancreatitis and was treated as an outpatient. The patient returns for increasing pain. The patient describes the pain as severe. The patient reports decreased p.o. intake. The patient denies significant lower abdominal pain. The patient denies any alcohol usage. The patient denies fevers or chills. Symptoms are described as severe. No radiation. No other associated symptoms Review of Systems Constitutional: reports: Fatigue. denies: Fever, Chills Eyes: denies: Discharge Ears: denies: Ear pain Nose: denies: Rhinorrhea / runny nose Throat: denies: Sore throat Cardiac: denies: Chest pain / pressure Respiratory: denies: Dyspnea GI: reports: Abdominal Pain. denies: Diarrhea : denies: Dysuria Skin: denies: Rash Musculoskeletal: denies: Neck pain Neurologic: denies: Generalized weakness Immunocompromised: denies: Chemotherapy PD PAST MEDICAL HISTORY - Past Medical History Past Medical History: Yes Cardiovascular: None Respiratory: None Neuro: None Endocrine/Autoimmune: None GI: GERD, Hiatal hernia, Pancreatitis : None HEENT: None Psych: Depression Musculoskeletal: None Derm: None - Past Surgical History Past Surgical History: No Derm: Other - Present Medications Home Medications: Ambulatory Orders Medication Instructions Recorded Confirmed Omeprazole [PriLOSEC] 20 mg PO DAILY #14 capsule 08/02/16 02/21/17 RX: Methadone 100 mg pe PO DAILY 02/21/17 02/21/17 RX: metFORMIN [Glucophage] 500 mg pe PO DAILY 02/21/17 02/21/17 Dexamethasone [Decadron] 4 mg PO DAILY #7 tablet 01/13/18 RX: Cetirizine [ZyrTEC] 10 mg PO DAILY #15 tablet 01/13/18 RX: Famotidine [Pepcid] 20 mg PO ONCE #15 tablet 03/19/18 RX: Sucralfate 1 gm PO ACHS #120 tablet 03/19/18 - Allergies Allergies/Adverse Reactions: Allergies Allergy/AdvReac Type Severity Reaction Status Date / Time shellfish derived Allergy Respiratory Verified 03/23/18 00:18 - Social History Does the pt smoke?: Yes Smoking Status: Current every day smoker Does the pt drink ETOH?: No Does the pt have substance abuse?: No - Immunizations Immunizations are current?: Yes - POLST Patient has POLST: No PD ED PE NORMAL - General General: Alert and oriented X 3. No: No acute distress (The patient appears quite uncomfortable) - HEENT HEENT: Atraumatic, PERRL, EOMI - Neck Neck: No JVD - Cardiac Cardiac: RRR, Strong equal pulses - Respiratory Respiratory: No respiratory distress - Abdomen Abdomen: Soft. No: Non tender (Epigastric tenderness, no rebound or peritoneal signs) - Derm Derm: Normal color - Extremities Extremities: No deformity, No edema - Neuro Neuro: Alert and oriented X 3, Normal speech - Psych Psych: Normal affect Results - Vitals Vitals: Vital Signs - 24 hr 03/23/18 03/23/18 03/23/18 00:16 01:35 02:17 Temperature 37.2 C Heart Rate 95 Respiratory 18 17 16 Rate Blood Pressure 153/92 H O2 Saturation 99 03/23/18 03/23/18 02:28 03:18 Temperature 37.1 C Heart Rate 75 Respiratory 18 16 Rate Blood Pressure 126/76 O2 Saturation 100 Oxygen O2 Source Room air - Labs Labs: Laboratory Tests 03/23/18 03/23/18 03/23/18 00:30 00:30 01:20 WBC 4.5 L RBC 3.64 L Hgb 11.7 L Hct 33.4 L MCV 91.7 MCH 32.3 H MCHC 35.2 RDW 12.2 Plt Count 242 MPV 8.3 Neut # (Auto) 2.4 Lymph # (Auto) 1.4 L [place] # (Auto) 0.4 Eos # (Auto) 0.2 Baso # (Auto) 0.0 Absolute Nucleated RBC 0.00 Nucleated RBC % 0.0 Sodium 134 L Potassium 4.3 Chloride 98 L Carbon Dioxide 29 Anion Gap 7.0 BUN 15 Creatinine 0.9 Estimated GFR (MDRD) 91 Glucose 265 H Calcium 9.3 Total Bilirubin 0.6 AST 189 H ALT 96 H Alkaline Phosphatase 202 H Total Protein 7.0 Albumin 4.3 Globulin 2.7 Albumin/Globulin Ratio 1.6 Lipase 124 H Urine Color YELLOW Urine Clarity CLEAR Urine pH 7.0 Ur Specific [place] 1.015 Urine Protein NEGATIVE Urine Glucose (UA) >=1000 H Urine Ketones NEGATIVE Urine Occult Blood SMALL H Urine Nitrite NEGATIVE Urine Bilirubin NEGATIVE Urine Urobilinogen 2 H Ur Leukocyte Esterase NEGATIVE Urine RBC 6-10 H Urine WBC 0-3 Ur Squamous Epith Cells MOD Squamous H Urine Bacteria None Seen Ur Microscopic Review INDICATED Urine Culture Comments NOT INDICATED - Rads (name of study) CT abd/pelvis Radiology: Final report received (1. Grossly abnormal appearance of the pancreas, likely a sequela of severe chronic pancreatitis. Stranding around the pancreas is again seen potentially related to acute pancreatitis. ) PD MEDICAL DECISION MAKING - ED course ED course: The patient has worsening pancreatitis and worsening on the CT scan with a now pseudocyst. The patient will require admission to the hospital for further management of his acute condition. The findings and plan were discussed with the patient understands and agrees. The case discussed with the hospitalist Dr. Soriano who accepts the patient onto her service. - Sepsis Event Vital Signs: Vital Signs - 24 hr 03/23/18 03/23/18 03/23/18 00:16 01:35 02:17 Temperature 37.2 C Heart Rate 95 Respiratory 18 17 16 Rate Blood Pressure 153/92 H O2 Saturation 99 03/23/18 03/23/18 02:28 03:18 Temperature 37.1 C Heart Rate 75 Respiratory 18 16 Rate Blood Pressure 126/76 O2 Saturation 100 Oxygen O2 Source Room air Departure - Departure Disposition: 66 [facility] DC/Xfer Clinical Impression: Acute pancreatitis Discharge Date/Time: 03/23/18 04:28
--- NOTE | 2018-03-23 03:24 | CT Report ---
Reason: Worsening epigastric pain, history of recurrent pa Procedure Date: 03/23/2018 Accession Number: [id number] / [id number] Procedure: CT - Abdomen/Pelvis W/ CPT Code: FULL RESULT: EXAM: CT ABDOMEN AND PELVIS EXAM DATE: 03/23/2018 02:40 AM. CLINICAL HISTORY: Worsening epigastric pain, history of recurrent pancreatitis. COMPARISONS: ABDOMEN/PELVIS W/O 03/19/2018 5:32 PM, ABDOMEN/PELVIS W/ 02/28/2016 4:42 PM. TECHNIQUE: Routine helical CT imaging was performed through the abdomen and pelvis. IV contrast: 100 mL Isovue 300. Enteric contrast: No. Reconstructions: Coronal and sagittal. In accordance with CT protocol optimization, one or more of the following dose reduction techniques were utilized for this exam: automated exposure control, adjustment of mA and/or KV based on patient size, or use of iterative reconstructive technique. FINDINGS: ABDOMEN: Liver: No significant abnormality. Stomach/Distal Esophagus: There is a medium to large sliding hiatal and paraesophageal hernia. No significant change compared to the prior examinations. Gallbladder: No definite calcified gallstones. Bile Ducts: Moderate intrahepatic biliary ductal dilation is present. There is dilation of the CBD with narrowing/occlusion within the pancreatic head region. Pancreas: Multiple pancreas calcifications are present, several of which are likely intraductal in location. There is moderate ductal dilation within the pancreas neck and head region. There is relative atrophy of the distal body and the tail of the pancreas. Architectural distortion and scarring coupled with scirrhous changes seen within the retroperitoneum around the pancreatic head and uncinate process. There is a small low-density abnormality along the medial most aspect of the pancreas uncinate process, measuring 1.5 cm. No significant change from the recent prior study. Spleen: No significant abnormality. Kidneys: No suspicious solid appearing lesion. No hydronephrosis. Adrenals: No significant abnormality. Bowel: There is a low-density collection adjacent to the duodenal bulb, measuring 2.3 cm. This is likely located within the bowel wall. It is unchanged in configuration from the prior exam. There is no evidence of bowel obstruction. Moderate to large amount of retained colonic fecal material is present. Appendix: Normal. Lymph Nodes: No pathologically enlarged nodes. 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 Aorta is normal in caliber. There is mild to moderate aortic atherosclerosis. Fluid: No significant free fluid. Abdominal Wall: No significant abnormality. Other: There is a nonspecific rim-calcified right lower quadrant fecalith versus an area of fat necrosis. PELVIS: Prostate and Seminal Vesicles: No significant abnormality. Bladder: No significant abnormality. Lymph Nodes: No pathologically enlarged nodes. Fluid: No significant free fluid. Other: None. BONES: No suspicious bony lesions. LOWER CHEST: No significant consolidation or effusion. Atelectasis within the lung bases bilaterally. IMPRESSION: 1. Grossly abnormal appearance of the pancreas, likely a sequela of severe chronic pancreatitis. Stranding around the pancreas is again seen, potentially related to acute pancreatitis. 2. Architectural distortion around the pancreas head and uncinate process is noted, making it difficult to exclude an underlying pancreas neoplasm. Unfortunately imaging may not reliably exclude a neoplasm in this location. These findings are new from the prior 2016 study. 3. 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 4. There is a small 1.5 cm low density within the medial most aspect of the pancreas uncinate process, potentially another pseudocyst. Attention on follow-up examination recommended. 5. Associated occlusion of the portal splenic confluence as well as the CBD is noted. There is moderate intrahepatic biliary dilation. 6. Moderate amount of retained colonic fecal material suggesting constipation. There is no small bowel obstruction. Appendix is normal. 7. There is a medium to large sliding hiatal and paraesophageal hernia, similar to the prior studies. [facility]
[2018-03-23] MEDS ORDERED: PROCHLORPERAZINE 10 MG/2 ML VIAL IVP PRN (03:58)
[2018-03-23] MEDS ORDERED: ONDANSETRON ODT 4 MG TABLET TL PRN (03:58)
[2018-03-23] MEDS ORDERED: ONDANSETRON 4 MG/2 ML VIAL IVP PRN (03:58)
--- NOTE | 2018-03-23 04:04 | HISTORY & PHYSICAL EXAMINATION ---
Chief Complaint - Chief Complaint Chief Complaint: abdominal pain in patient w chronic pancreatitis History of Present Illness - Admitted From Admitted From:: ER/home - History Obtained From Records Reviewed: [facility] History obtained from: patient Exam Limitations: none - History of Present Illness HPI Comment/Other: He is a 47-year-old man who has known chronic pancreatitis from chronic alcohol abuse. He has had multiple admissions to our hospital ever [place]. He thinks probably that he has had a total of 15-20 admissions over all since 2005. His last admission was in 2015. He has stopped drinking around the last time of his admission. 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 Although he has chronic daily abdominal aching, he has been able to maintain his weight. Eat his food. And control his pain. It has been a good year and 1/2-2 years. He has not gone back to drinking. His diet is steady. But for some reason he began having abdominal pain again. He was seen in the emergency room by Dr. Ruiz on March 19. He been having 2-1/2 weeks of abdominal pain on the right side. There is no diarrhea with this. No fever, no chills. Eating did not make it better or make it worse. If he moved around too much the pain definitely got worse. He was afebrile, and has low blood pressure but that is chronic for him. He had minimal right-sided abdominal pain but no rebound or guarding and normal bowel sounds. His white cell count was 7.2. And a CAT scan showed a hiatal hernia, acute exacerbation of pancreatitis with possible early pancreatic pseudocyst versus inflammation. He did not have a bowel obstruction or appendicitis. He was sent home on pain medicines, diet control. He cannot take the pain anymore and came back now. Again there is no emesis. No fever no chills. No jaundice. History - Past Medical History Cardiovascular: reports: None Respiratory: reports: None Neuro: reports: None Endocrine/Autoimmune: reports: Type 2 diabetes GI: reports: GERD, Hiatal hernia, Pancreatitis : reports: None HEENT: reports: None Psych: reports: Depression Musculoskeletal: reports: None Derm: reports: None MRSA Hx?: No - Past Surgical History Derm: reports: Other - Family & Social History Family History Comment/Other: Dad is in his 70s and has no major medical illnesses. Mom in her 50s of suicide. One brother of a suicide according to corners report. One brother is healthy. No children Living arrangement: At home Living Situation: With spouse/s.o. Social History Notes: He was born and raised in [place]. Moved to [place] and lives there with his first in [facility] in [place]. Most of his hospitalizations for pancreatitis were in [place]. He is currently to his second . He moved [place] in 2013 when he was dating his girlfriend. She is now his . They came to see her parents, like at some much they state. 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 Smokes 1 pack per day. Denies any problems with heroin cocaine and LSD speed - Substance History Use: Uses substance without health or social issues: Tobacco Use Issues: uncomplicated Abuse: Recurrent use of substance despite neg consequences: NONE Dependence: Experiences withdrawal or developed tolerances: NONE - POLST Patient has POLST: No POLST Status: Full Code (However he only wants CPR. He does not want intubation.) Meds/Allgy - Home Medications Home Medications: Ambulatory Orders Medication Instructions Recorded Confirmed Omeprazole [PriLOSEC] 20 mg PO DAILY #14 capsule 08/02/16 02/21/17 Methadone 100 mg pe PO DAILY 02/21/17 02/21/17 metFORMIN [Glucophage] 500 mg pe PO DAILY 02/21/17 02/21/17 Cetirizine [ZyrTEC] 10 mg PO DAILY #15 tablet 01/13/18 Dexamethasone [Decadron] 4 mg PO DAILY #7 tablet 01/13/18 Famotidine [Pepcid] 20 mg PO ONCE #15 tablet 03/19/18 Sucralfate 1 gm PO ACHS #120 tablet 03/19/18 - Allergies Allergies/Adverse Reactions: Allergies Allergy/AdvReac Type Severity Reaction Status Date / Time shellfish derived Allergy Respiratory Verified 03/23/18 00:18 Review of Systems - Constitutional Constitutional: denies: Fatigue, Fever, Chills, Malaise - Eyes Eyes: denies: Pain, Irritation, Amaurosis, Field loss, Vision loss - Ears, Nose & Throat Ears, Nose & Throat: denies: Ear pain, Hearing loss, Hearing aids, Vertigo, Nasal obstruction, Nasal congestion, Sore throat - Cardiovascular Cariovascular: denies: Irregular heart rate, Palpitations, Chest pain, Edema, Lightheadedness, Syncope, Exertional dyspnea, Decr. exercise tolerance - Respiratory Respiratory: denies: Cough, Sputum production, Wheezing, SOB at rest, SOB with exertion, Apnea - Gastrointestinal Gastrointestinal: reports: Abdominal pain, Nausea, Reflux/heartburn. denies: Abdominal distention, Constipation, Diarrhea, Change in bowel habits, Rectal b leeding, Bloody stools, Vomiting, Bile emesis, Coffee grounds emesis - Genitourinary Genitourinary: denies: Dysuria, Frequency, Urgency - Musculoskeletal Musculoskeletal: denies: Muscle pain, Back pain, Muscle aches - Integumentary Integumentary: denies: Rash, Lesions - Neurological Neurological: denies: General weakness, Focal weakness, Headache, Dizziness - Psychiatric Psychiatric: reports: Depression, Anxiety. denies: Suicidal - Endocrine Endocrine: denies: Polyuria, Polydypsia, Polyphagia - Hematologic/Lymphatic Hematologic/Lymphatic: denies: Anemia, Bruising Exam - Vital Signs Reviewed Vital Signs: Yes Vital Signs: Vital Signs x48h Temp Pulse Resp BP Pulse Ox 03/23/18 03:59 36.9 C 62 16 124/75 99 03/23/18 03:18 16 03/23/18 02:28 37.1 C 75 18 126/76 100 03/23/18 02:17 16 03/23/18 01:35 17 03/23/18 00:16 37.2 C 95 18 153/92 H 99 - Physical Exam General Appearance: positive: No acute distress, Alert, Other (Thin white male who looks older than stated age. At this time lying comfortably in bed on his back.) Eyes Bilateral: positive: PERRL ENT: positive: Pharynx nml. negative: Dry mucous membranes Neck: positive: No JVD. negative: Stiff neck, Carotid bruit Respiratory: positive: Chest non-tender. negative: Wheezes, Rales, Rhonchi Cardiovascular: positive: Regular rate & rhythm. negative: Systolic murmur, Gallop/S4, Friction rub Peripheral Pulses: positive: 1+ Abdomen: positive: Nml bowel sounds, Tenderness. negative: Guarding, Rebound, Hepatomegaly Skin: positive: Warm, Dry. negative: Pallor Extremities: positive: Non-tender, No pedal edema Neurologic/Psychiatric: positive: Oriented x3, CN's nml (2-12), Motor nml, Sensation nml Conclusion/Plan - Problem List (1) Chronic pancreatitis Conclusion/Plan: This gentleman has unfortunate complications of his alcohol abuse with numerous episodes of acute pancreatitis now settling into chronic pancreatitis. He has not had any alcohol for close to 2 years. Current Ninfa criteria is low. He is below the age of 55, glucose is greater than 200, white cell count is less than 16,000, AST is less than 250, and LDH is less than 350. We will watch his BUN over the next 2 days, base deficit, hematocrit, PO2, calcium and how much fluid he needs to recalculate his criteria. Currently he is 1 point with mortality being 1%. Plan: N.p.o. status except for ice chips IV fluids for hydration IV antiemetics for nausea control Wash daily lipase Once abdominal pain resolved, start advancing diet. He usually takes 24-48 hours to improve per his usual history. Qualifiers: Pancreatitis type: alcohol induced Qualified Code(s): K86.0 - Alcohol-induced chronic pancreatitis (2) GERD (gastroesophageal reflux disease) Conclusion/Plan: IV proton pump inhibitor while he is in the hospital Qualifiers: Esophagitis presence: esophagitis presence not specified Qualified Code(s): K21.9 - Gastro-esophageal reflux disease without esophagitis (3) Abnormal liver enzymes Conclusion/Plan: He does not have recent alcohol abuse. He feels like his pain is different than it usually is and more right-sided than left-sided. Plan: MRCP in the morning. If his ductal anatomy is severely abnormal and the cause of his pancreatitis, he may need to be transferred to higher level of care for gastroenterology intervention. (4) Chronic pain Conclusion/Plan: He has been seen in a methadone clinic. Currently getting oral methadone. Since he is n.p.o. and on like him to avoid oral medications at this time, changed to Dilaudid as needed. Qualifiers: Chronic pain type: other chronic pain Qualified Code(s): G89.29 - Other chr onic pain (5) Type 2 diabetes mellitus, controlled Conclusion/Plan: being kept npo for his pancreatitis. start SS insulin for non eating. Qualifiers: Diabetes mellitus correction insulin use: without correction use Diabetes mellitus complication status: without complication Qualified Code(s): E11.9 - Type 2 diabetes mellitus without complications - Lab Results Fish Bones: 03/23/18 00:30 03/23/18 00:30 - Diagnostic Imaging Results Diagnostic Imaging Results: positive: Final report reviewed Diagnostic Imaging Results Comments: His sodium is 134. Carbon dioxide is 29. He does not have an anion gap. Random glucose is 265. AST is rising. He was 18 on the 18 and is now 189. ALT was less than 10 and is now 96. Alk phos is up at 202. Lipase is 124. Uri nalysis is a small amount of occult blood, glucosuria, urobilinogen, no ketones. White cell count is low at 4.5 hemoglobin is 11.7 hematocrit 33.4. Abdomen pelvis CT was redone. Liver has no significant abnormality. Medium to large sliding hiatal hernia and paraesophageal hernia. No definite calcified gallstones. A moderate intrahepatic biliary ductal dilation is present. There is dilation of the common bile duct with narrowing occlusion within the pancreatic head region. He has multiple pancreatic calcifications present, several of which are likely intraductal in location. There is moderate ductal dilation within the pancreas neck and head region. Relative atrophy of the distal body and the tail of the pancreas. Architectural distortion and scarring couple with cirrhosis changes seen within the retroperitoneum and around the pancreatic head and uncinate process. There is a small low-density abnormality along the medialmost aspect of the pancreas uncinate process, measuring 1.5 cm. Spleen was normal. Kidneys were normal. He has a small 2.3 cm density located within the bowel wall adjacent to the duodenal bulb. This is unchanged from previous CT. Core Measures - Anticipated LOS I expect patient to be DC'd or transferred within 96 hours.: Yes - DVT/VTE - Prophylaxis VTE/DVT Device ordered at admit?: Yes
[2018-03-23] MEDS: SODIUM CHLORIDE 0.9% 1,000 ML IV SCH ×2 (05:00→14:11)
[2018-03-23] MEDS: HYDROmorphone 1 MG/ML CARPUJECT IVP PRN ×9 (05:00→22:37)
[2018-03-23 05:33] LABS: HB2 TOTAL 11.2 g/dL; HEMOGLOBIN A1C 0.82 g/dL; HEMOGLOBIN A1C % 8.8 % (4.6-6.2)
[2018-03-23] MEDS: PANTOPRAZOLE 40 MG VIAL IVP SCH (06:56)
[2018-03-23] MEDS: INSULIN REGULAR HUMAN 100 UNIT/1 ML 10 ML MDV SUBQ SCH ×3 (07:00→17:53)
[2018-03-23] MEDS: SODIUM CHLORIDE FLUSH 0.9% 10 ML SYRINGE IVP PRN (07:25)
[2018-03-23] MEDS: SODIUM CHLORIDE FLUSH 0.9% 10 ML SYRINGE IVP SCH ×2 (10:19→16:35)
[2018-03-23] MEDS: POLYETHYLENE GLYCOL 3350 17 GM PACKET PO SCH (10:37)
--- NOTE | 2018-03-23 12:45 | PROVIDER PROGRESS NOTE ---
Hospitalist Cross-cover Note - Cross-Cover Note Cross-Cover Note: Patient was seen and examined this morning. He has been admitted with acute pancreatitis. The patient is receiving IV pain medication, IV fluids and IV antiemetics. He is currently n.p.o. He states this morning the pain is better controlled but he just received a dose of IV Dilaudid a few minutes earlier. The plan is for the patient to be hospitalized over the weekend and get an MRCP on Sunday to better assess his biliary ducts as there is concern for possible neoplasm on the CT scan.
[2018-03-23] MEDS: KETOROLAC 30 MG/ML VIAL IVP PRN (19:13)
[2018-03-24] MEDS: INSULIN REGULAR HUMAN 100 UNIT/1 ML 10 ML MDV SUBQ SCH ×2 (00:03→06:00)
[2018-03-24] MEDS: SODIUM CHLORIDE 0.9% 1,000 ML IV SCH ×3 (00:05→20:28)
[2018-03-24] MEDS: HYDROmorphone 1 MG/ML CARPUJECT IVP PRN ×9 (00:39→23:37)
[2018-03-24] MEDS: SODIUM CHLORIDE FLUSH 0.9% 10 ML SYRINGE IVP SCH ×4 (01:10→23:32)
[2018-03-24] MEDS: KETOROLAC 30 MG/ML VIAL IVP PRN (02:37)
[2018-03-24 06:07] LABS: VBG PCO2 41.9 mmHg (41-51); VBG PH 7.386 (7.31-7.41); VBG PO2 58.9 mmHg (25-47); VBG TOTAL CO2 25.9 mmol/L (24-29)
[2018-03-24 06:08] LABS: VBG BASE EXCESS -0.5 mmol/L (-2 - +2)
[2018-03-24 06:13] LABS: BASOPHILS % (AUTO) 0.3 %; EOSINOPHILS # (AUTO) 0.2 10^3/uL (0.0-0.7); HGB - HEMOGLOBIN 10.9 g/dL (14.0-18.0); LYMPHOCYTES # (AUTO) 1.2 10^3/uL (1.5-3.5); LYMPHOCYTES % (AUTO) 15.8 %; MEAN CORPUSCULAR HEMOGLOBIN 32.5 pg (27.0-31.0); MEAN CORPUSCULAR HGB CONC 34.8 g/dL (32.0-36.0); MEAN CORPUSCULAR VOLUME 93.4 fL (80.0-94.0); MEAN PLATELET VOLUME 8.3 fL (7.4-11.4); MONOCYTES # (AUTO) 0.5 10^3/uL (0.0-1.0); MONOCYTES % (AUTO) 6.1 %; NEUTROPHILS # (AUTO) 5.6 10^3/uL (1.5-6.6); NEUTROPHILS % (AUTO) 74.8 %; PLT - PLATELET COUNT 201 10^3/uL (130-450); RED BLOOD COUNT 3.36 10^6/uL (4.70-6.10); RED CELL DISTRIBUTION WIDTH 12.4 % (12.0-15.0); WHITE BLOOD COUNT 7.5 x10^3/uL (4.8-10.8)
[2018-03-24 06:22] LABS: ALBUMIN 3.6 g/dL (3.2-5.5); ALBUMIN/GLOBULIN RATIO 1.6 (1.0-2.2); BILIRUBIN,TOTAL 0.4 mg/dL (0.2-1.0); CALCIUM 8.5 mg/dL (8.5-10.3); CREATININE 0.7 mg/dL (0.6-1.2); TOTAL PROTEIN 5.9 g/dL (6.7-8.2)
[2018-03-24] MEDS: PANTOPRAZOLE 40 MG VIAL IVP SCH (06:58)
[2018-03-24] MEDS: METHADONE 5 MG TABLET PO SCH (08:31)
[2018-03-24] MEDS: LIPASE/PROTEASE/AMYLASE CAPSULE PO SCH ×3 (08:31→17:04)
[2018-03-24] MEDS: INSULIN ASPART 300 UNIT/3 ML PEN SUBQ SCH ×4 (08:32→20:22)
[2018-03-24] MEDS: POLYETHYLENE GLYCOL 3350 17 GM PACKET PO SCH (08:37)
[2018-03-24] MEDS: SUCRALFATE 1 GM/10 ML UDC PO SCH ×3 (11:19→20:28)
--- NOTE | 2018-03-24 11:41 | PROVIDER PROGRESS NOTE ---
Assessment/Plan - Problem List (1) Chronic pancreatitis Qualifiers: Pancreatitis type: alcohol induced Qualified Code(s): K86.0 - Alcohol- induced chronic pancreatitis Assessment/Plan: This gentleman has unfortunate complications of his alcohol abuse with numerous episodes of acute pancreatitis now settling into chronic pancreatitis. He has not had any alcohol for close to 2 years. Current Ninfa criteria is low. He is below the age of 55, glucose is greater than 200, white cell count is less than 16,000, AST is less than 250, and LDH is less than 350. We will watch his BUN over the next 2 days, base deficit, hematocrit, PO2, calcium and how much fluid he needs to recalculate his criteria. Currently he is 1 point with mortality being 1%. The patient is much improved this morning. Patient's amylase and lipase have also improved down to 27 and 56 respectively Patient states his abdominal pain is improved we will try to wean down the IV Dilaudid and restart his home methadone dose Patient states his nausea is controlled and he feels like he can eat Patient will be started on a clear liquid diet and we will advance as patient ca n tolerate. Patient will get an MRCP tomorrow morning to evaluate CT findings for possible pancreatic neoplasm. If MRCP is inconclusive the patient will need outpatient follow-up with an endoscopic ultrasound. Qualifiers: Pancreatitis type: alcohol induced Qualified Code(s): K86.0 - Alcohol- induced chronic pancreatitis (2) GERD (gastroesophageal reflux disease) Conclusion/Plan: IV proton pump inhibitor while he is in the hospital Qualifiers: Esophagitis presence: esophagitis presence not specified Qualified Code(s): K21.9 - Gastro-esophageal reflux disease without esophagitis (3) Abnormal liver enzymes Conclusion/Plan: He does not have recent alcohol abuse. He feels like his pain is different than it usually is and more right-sided than left-sided. Plan: MRCP in the morning. If his ductal anatomy is severely abnormal and the cause of his pancreatitis, he may need to be transferred to higher level of care for gastroenterology intervention. (4) Chronic pain Conclusion/Plan: He has been seen in a methadone clinic. Currently getting oral methadone. Will switch to PO methadone today and decrease frequency of dilaudid Qualifiers: Chronic pain type: other chronic pain Qualified Code(s): G89.29 - Other chronic pain (5) Type 2 diabetes mellitus, controlled Conclusion/Plan: Place on DM diet and SS insulin today BG well controlled Qualifiers: Diabetes mellitus mcc insulin use: without mcc use Diabetes mellitus complication status: without complication Qualified Code(s): E11.9 - Type 2 diabetes mellitus without complications - Current Meds Current Meds: Current Medications Generic Name Dose Route Start Last Admin Trade Name Freq PRN Reason Stop Dose Admin Lipase/Protease/Amylase 3 cap 03/24/18 08:00 03/24/18 08:[address] 5,000/17,000/27,000 Group Home PO 3 cap TIDWM DORA Administration Hydromorphone HCl 1 mg 03/24/18 07:45 03/24/18 11:14 Dilaudid Inj Carp IVP 1 mg Q6H PRN Administration Pain 8 to 10 Sodium Chloride 1,000 mls @ 100 mls/hr 03/23/18 04:00 03/24/18 10:25 Normal Saline 0.9% IV 100 mls/hr .Q10H DORA Administration Insulin Aspart 1 - 5 unit 03/24/18 08:00 03/24/18 08:32 Novolog SUBQ 1 unit 0800,1200,1700,2100 DORA Administration Protocol Ketorolac Tromethamine 30 mg 03/23/18 17:30 03/24/18 02:37 Toradol Inj (30mg) IVP 03/28/18 17:29 30 mg Q6HR PRN Administration PAIN Methadone HCl 105 mg 03/24/18 09:00 03/24/18 08:31 PO 105 mg DAILY DORA Administration Pantoprazole Sodium 40 mg 03/23/18 07:00 03/24/18 06:58 Protonix IVP 40 mg QDAC DORA Administration Polyethylene Glycol 17 gm 03/23/18 09:00 03/24/18 08:37 Miralax PO 17 gm DAILY DORA Administration Sodium Chloride 10 ml 03/23/18 03:58 03/23/18 07:25 Normal Saline Flush 0.9% IVP 10 ml PRN PRN Administration NEEDED PER PROVIDER ORDERS Sodium Chloride 10 ml 03/23/18 09:00 03/24/18 06:58 Normal Saline Flush 0.9% IVP 10 ml 0100,0900,1700 DORA Administration Sucralfate 1 gm 03/24/18 11:00 03/24/18 11:19 Carafate PO 1 gm ACHS DORA Administration - Lab Result Lab results reviewed: Yes Fish Bone Diagrams: 03/24/18 05:35 03/24/18 05:35 - Diagnostic Imaging Results Diagnostic Imaging Results: Final report reviewed - Additional Planning Condition/Complexity: Improved My Orders: My Active Orders 03/23/18 17:30 Ketorolac Inj (30Mg) [Toradol Inj (30Mg)] 30 mg IVP Q6HR PRN 03/24/18 07:45 HYDROmorphone INJ CARP [Dilaudid Inj Carp] 1 mg IVP Q6H PRN 03/24/18 07:46 Blood Glucose Checks - Eating [RC] 0800,1200,1700,2100 Initiate Hypoglycemia Protocol [RC] .protocol 03/24/18 08:00 Insulin Aspart [NovoLOG] 1 - 5 unit SUBQ 0800,1200,1700,2100 Lipase/Protease/Amylase [Pancrelipase Dr 5,000/17,000/27,000 Group Home] 3 cap PO TIDWM 03/24/18 09:00 Methadone 105 mg PO DAILY 03/24/18 11:00 Sucralfate [Carafate] 1 gm PO ACHS 03/24/18 Lunch Clear Liquid Diet [DIET] 03/25/18 05:00 AMYLASE [CHEM] DAILYLAB 03/26/18 05:00 AMYLASE [CHEM] DAILYLAB Plan Discussed with:: Patient Time Spent: 31-60 minutes Subjective - Subjective Patient Reports: Feeling Better, Resting Comfortably, Abdominal Pain (IMproved), Nausea (Improved), Other (No fevers or chills) Nursing Reports: No Complaints Objective Vital Signs: Vital Signs - 24 hr 03/23/18 03/23/18 03/23/18 11:32 14:16 14:18 Temperature 36.9 C 37.1 C Heart Rate 63 Heart Rate [ 65 63 Apical] Respiratory 20 17 Rate Blood Pressure [Left Brachial artery] Blood Pressure 127/68 [Right Ankle] Blood Pressure 96/58 L [Right Brachial artery] O2 Saturation 100 99 03/23/18 03/23/18 03/24/18 15:20 23:26 05:29 Temperature 37.1 C 37.0 C 36.5 C Heart Rate Heart Rate [ 66 61 57 L Apical] Respiratory 19 16 16 Rate Blood Pressure 107/61 100/61 100/62 [Left Brachial artery] Blood Pressure [Right Ankle] Blood Pressure [Right Brachial artery] O2 Saturation 96 96 96 03/24/18 08:00 Temperature 36.9 C Heart Rate Heart Rate [ 67 Apical] Respiratory 18 Rate Blood Pressure 106/61 [Left Brachial artery] Blood Pressure [Right Ankle] Blood Pressure [Right Brachial artery] O2 Saturation 98 Oxygen O2 Source Room air I&O (Last 24 Hrs): Intake and Output Totals x24h 03/22/18 03/23/18 03/24/18 23:59 23:59 23:59 Intake Total 2811.000 1508.333 Balance 2811.000 1508.333 General: Alert, Oriented x3, Cooperative, No acute distress, Other (Thin) HEENT: Atraumatic, PERRLA, EOMI, Mucous membr. moist/pink Neck: Supple, No JVD, No thyromegaly, +2 carotid pulse wo bruit, No LAD Lymphatic: no adenopathy Neuro: Alert, Non Focal, CN 2-12 Grossly Intact, Oriented Times 3 Cardiovascular: Regular rate, Normal S1, Normal S2, No murmurs Respiratory: Chest non-tender, No respiratory distress, Breath sounds nml Abdomen: Normal bowel sounds, Soft, No tenderness, No hepatospenomegaly, Other (Mild tenderness in the RUQ) Extremities: No clubbing, No cyanosis, No edema, Normal pulses Skin: No rashes, No breakdown - Results Results: Laboratory Results WBC 7.5 x10^3/uL (4.8-10.8) 03/24/18 05:35 RBC 3.36 10^6/uL (4.70-6.10) L 03/24/18 05:35 Hgb 10.9 g/dL (14.0-18.0) L 03/24/18 05:35 Hct 31.4 % (42.0-52.0) L 03/24/18 05:35 MCV 93.4 fL (80.0-94.0) 03/24/18 05:35 MCH 32.5 pg (27.0-31.0) H 03/24/18 05:35 MCHC 34.8 g/dL (32.0-36.0) 03/24/18 05:35 RDW 12.4 % (12.0-15.0) 03/24/18 05:35 Plt Count 201 10^3/uL (130-450) 03/24/18 05:35 MPV 8.3 fL (7.4-11.4) 03/24/18 05:35 Neut # (Auto) 5.6 10^3/uL (1.5-6.6) 03/24/18 05:35 Lymph # (Auto) 1.2 10^3/uL (1.5-3.5) L 03/24/18 05:35 Mcmullen # (Auto) 0.5 10^3/uL (0.0-1.0) 03/24/18 05:35 Eos # (Auto) 0.2 10^3/uL (0.0-0.7) 03/24/18 05:35 Baso # (Auto) 0.0 10^3/uL (0.0-0.1) 03/24/18 05:35 Absolute Nucleated RBC 0.00 x10^3/uL 03/24/18 05:35 Nucleated RBC % 0.0 /100WBC 03/24/18 05:35 VBG pH 7.386 (7.31-7.41) 03/24/18 05:35 VBG pCO2 41.9 mmHg (41-51) 03/24/18 05:35 VBG pO2 58.9 mmHg (25-47) H 03/24/18 05:35 VBG HCO3 24.6 mmol/L (23-28) 03/24/18 05:35 VBG Total CO2 25.9 mmol/L (24-29) 03/24/18 05:35 VBG O2 Saturation 91.0 % (60-80) H 03/24/18 05:35 VBG Base Excess -0.5 mmol/L (-2 - +2) 03/24/18 05:35 Sodium 137 mmol/L (135-145) 03/24/18 05:35 Potassium 4.4 mmol/L (3.5-5.0) 03/24/18 05:35 Chloride 106 mmol/L (101-111) 03/24/18 05:35 Carbon Dioxide 24 mmol/L (21-32) 03/24/18 05:35 Anion Gap 7.0 (6-13) 03/24/18 05:35 BUN 12 mg/dL (6-20) 03/24/18 05:35 Creatinine 0.7 mg/dL (0.6-1.2) 03/24/18 05:35 Estimated GFR (MDRD) 122 (>89) 03/24/18 05:35 Glucose 120 mg/dL (70-100) H 03/24/18 05:35 POC Whole Bld Glucose 162 mg/dL (70 - 100) H 03/24/18 07:52 Glycated Hemoglobin 8.8 % (4.6-6.2) H 03/23/18 04:55 Estim Average Glucose 206 (70-100) H 03/23/18 04:55 Calcium 8.5 mg/dL (8.5-10.3) 03/24/18 05:35 Total Bilirubin 0.4 mg/dL (0.2-1.0) 03/24/18 05:35 AST 55 IU/L (10-42) H 03/24/18 05:35 ALT 97 IU/L (10-60) H 03/24/18 05:35 Alkaline Phosphatase 134 IU/L (42-121) H 03/24/18 05:35 Total Protein 5.9 g/dL (6.7-8.2) L 03/24/18 05:35 Albumin 3.6 g/dL (3.2-5.5) 03/24/18 05:35 Globulin 2.3 g/dL (2.1-4.2) 03/24/18 05:35 Albumin/Globulin Ratio 1.6 (1.0-2.2) 03/24/18 05:35 Amylase 27 U/L (28-100) L 03/24/18 05:35 Lipase 56 U/L (22-51) H 03/24/18 05:35 Urine Color YELLOW 03/23/18 01:20 Urine Clarity CLEAR (CLEAR) 03/23/18 01:20 Urine pH 7.0 PH (5.0-7.5) 03/23/18 01:20 Ur Specific [place] 1.015 (1.002-1.030) 03/23/18 01:20 Urine Protein NEGATIVE mg/dL (NEGATIVE) 03/23/18 01:20 Urine Glucose (UA) >=1000 mg/dL (NEGATIVE) H 03/23/18 01:20 Urine Ketones NEGATIVE mg/dL (NEGATIVE) 03/23/18 01:20 Urine Occult Blood SMALL (NEGATIVE) H 03/23/18 01:20 Urine Nitrite NEGATIVE (NEGATIVE) 03/23/18 01:20 Urine Bilirubin NEGATIVE (NEGATIVE) 03/23/18 01:20 Urine Urobilinogen 2 E.U./dL (NORMAL) H 03/23/18 01:20 Ur Leukocyte Esterase NEGATIVE (NEGATIVE) 03/23/18 01:20 Urine RBC 6-10 /HPF (0-5) H 03/23/18 01:20 Urine WBC 0-3 /HPF (0-3) 03/23/18 01:20 Ur Squamous Epith Cells MOD Squamous (<= Few) H 03/23/18 01:20 Urine Bacteria None Seen /HPF (None Seen) 03/23/18 01:20 Ur Microscopic Review INDICATED 03/23/18 01:20 Urine Culture Comments NOT INDICATED 03/23/18 01:20 ABX Reporting Has patient been on IV antibiotics over the past 48 hours?: No Current Medications - Current Medications Current Medications: Active Medications Generic Name Dose Route Start Last Admin Trade Name Freq PRN Reason Stop Dose Admin Lipase/Protease/Amylase 3 cap 03/24/18 08:00 03/24/18 08:[address] 5,000/17,000/27,000 Group Home PO 3 cap TIDWM DORA Administration Hydromorphone HCl 1 mg 03/24/18 07:45 03/24/18 11:14 Dilaudid Inj Carp IVP 1 mg Q6H PRN Administration Pain 8 to 10 Sodium Chloride 1,000 mls @ 100 mls/hr 03/23/18 04:00 03/24/18 10:25 Normal Saline 0.9% IV 100 mls/hr .Q10H DORA Administration Insulin Aspart 1 - 5 unit 03/24/18 08:00 03/24/18 08:32 Novolog SUBQ 1 unit 0800,1200,1700,2100 DORA Administration Protocol Ketorolac Tromethamine 30 mg 03/23/18 17:30 03/24/18 02:37 Toradol Inj (30mg) IVP 03/28/18 17:29 30 mg Q6HR PRN Administration PAIN Methadone HCl 105 mg 03/24/18 09:00 03/24/18 08:31 PO 105 mg DAILY DORA Administration Ondansetron HCl 4 mg 03/23/18 03:58 Zofran Inj IVP Q6HR PRN Nausea / Vomiting Ondansetron HCl 4 mg 03/23/18 03:58 Zofran Odt TL Q6HR PRN Nausea / Vomiting Pantoprazole Sodium 40 mg 03/23/18 07:00 03/24/18 06:58 Protonix IVP 40 mg QDAC DORA Administration Polyethylene Glycol 17 gm 03/23/18 09:00 03/24/18 08:37 Miralax PO 17 gm DAILY DORA Administration Prochlorperazine Edisylate 10 mg 03/23/18 03:58 Compazine Inj IVP Q6HR PRN Nausea / Vomiting Sodium Chloride 10 ml 03/23/18 03:58 03/23/18 07:25 Normal Saline Flush 0.9% IVP 10 ml PRN PRN Administration NEEDED PER PROVIDER ORDERS Sodium Chloride 10 ml 03/23/18 09:00 03/24/18 06:58 Normal Saline Flush 0.9% IVP 10 ml 0100,0900,1700 DORA Administration Sucralfate 1 gm 03/24/18 11:00 03/24/18 11:19 Carafate PO 1 gm ACHS DORA Administration Methadone 105 mg PO DAILY 02/21/17 metFORMIN [Glucophage] 500 mg DAILY 02/21/17 Famotidine 20 mg PO DAILY 03/23/18 Lisinopril 2.5 mg PO DAILY 03/23/18
[2018-03-24] MEDS: SODIUM CHLORIDE FLUSH 0.9% 10 ML SYRINGE IVP PRN ×3 (18:49→20:51)
[2018-03-25] MEDS: KETOROLAC 30 MG/ML VIAL IVP PRN (03:37)
[2018-03-25 05:32] LABS: BASOPHILS % (AUTO) 0.4 %; EOSINOPHILS # (AUTO) 0.2 10^3/uL (0.0-0.7); EOSINOPHILS % (AUTO) 5.8 %; LYMPHOCYTES # (AUTO) 1.6 10^3/uL (1.5-3.5); LYMPHOCYTES % (AUTO) 38.4 %; MEAN CORPUSCULAR HEMOGLOBIN 32.4 pg (27.0-31.0); MEAN CORPUSCULAR HGB CONC 34.7 g/dL (32.0-36.0); MEAN CORPUSCULAR VOLUME 93.5 fL (80.0-94.0); MEAN PLATELET VOLUME 8.3 fL (7.4-11.4); MONOCYTES # (AUTO) 0.4 10^3/uL (0.0-1.0); MONOCYTES % (AUTO) 8.5 %; NEUTROPHILS % (AUTO) 46.9 %; PLT - PLATELET COUNT 192 10^3/uL (130-450); RED BLOOD COUNT 3.09 10^6/uL (4.70-6.10); RED CELL DISTRIBUTION WIDTH 12.2 % (12.0-15.0); WHITE BLOOD COUNT 4.2 x10^3/uL (4.8-10.8)
[2018-03-25] MEDS: SODIUM CHLORIDE 0.9% 1,000 ML IV SCH (05:44)
[2018-03-25] MEDS: HYDROmorphone 1 MG/ML CARPUJECT IVP PRN (05:44)
[2018-03-25 05:47] LABS: ALBUMIN 3.5 g/dL (3.2-5.5); ALBUMIN/GLOBULIN RATIO 1.8 (1.0-2.2); ALKALINE PHOSPHATASE 100 IU/L (42-121); ALT ALANINE AMINOTRANSFERASE 62 IU/L (10-60); AMYLASE 37 U/L (28-100); AST ASPARTATE AMINOTRANSFERASE 28 IU/L (10-42); BILIRUBIN,TOTAL < 0.2 mg/dL (0.2-1.0); BUN - BLOOD UREA NITROGEN 12 mg/dL (6-20); CALCIUM 8.2 mg/dL (8.5-10.3); CARBON DIOXIDE - CO2 26 mmol/L (21-32); CHLORIDE 106 mmol/L (101-111); CREATININE 0.7 mg/dL (0.6-1.2); GFR - MDRD 122 (>89); GLUCOSE 176 mg/dL (70-100); LIPASE 103 U/L (22-51); SODIUM 136 mmol/L (135-145); TOTAL PROTEIN 5.5 g/dL (6.7-8.2)
[2018-03-25] MEDS: SUCRALFATE 1 GM/10 ML UDC PO SCH (06:46)
[2018-03-25] MEDS: PANTOPRAZOLE 40 MG VIAL IVP SCH (06:46)
[2018-03-25] MEDS ORDERED: LORazepam 2 MG/ML VIAL IVP STA (07:41)
[2018-03-25] MEDS: INSULIN ASPART 300 UNIT/3 ML PEN SUBQ SCH (08:30)
[2018-03-25] MEDS: LIPASE/PROTEASE/AMYLASE CAPSULE PO SCH (08:43)
[2018-03-25] MEDS: POLYETHYLENE GLYCOL 3350 17 GM PACKET PO SCH (08:44)
[2018-03-25] MEDS: SODIUM CHLORIDE FLUSH 0.9% 10 ML SYRINGE IVP SCH (08:44)
[2018-03-25] MEDS: METHADONE 5 MG TABLET PO SCH (09:20)
--- NOTE | 2018-03-25 11:04 | Discharge Plan ---
Discharge Plan Disposition: 01 Home, Self Care Condition: Good Prescriptions: Oxycodone HCl 10 mg PO Q8HR #10 tablet Lipase/Protease/Amylase [Danyel Barfield 24,000 Units Capsule] 1 each PO TIDWM #90 capsule. Diet: Regular (Low fat diet) Activity Restrictions: Activity as Tolerated Shower Restrictions: No Driving Restrictions: No Weight Bearing: Full Weight Additional Instructions or Follow Up instructions: You presented with abdominal pain and were found to have pancreatitis. Your symptoms resolved with supportive care and you were able to advance to a regular diet which are tolerating well with limited pain. You did have some abnormal findings on her CT of the abdomen and we recommend you get an MRCP and further follow-up from gastroenterology for a possible endoscopic ultrasound to further evaluate the anatomy around your pancreas. You are being discharged home in stable condition and we would like you to follow-up with your primary care physician to get a referral for gastroenterology and for an MRCP. No Smoking: If you smoke, Please STOP! Call for help. Follow-up with: Geronimo Dooley PA-C [Primary Care Provider] -
--- NOTE | 2018-03-25 11:29 | DISCHARGE SUMMARY ---
Discharge Summary Admit Date: 03/23/18 Discharge Date: 03/25/18 Discharging Provider: Mario Starks MD Primary Care Provider: Geronimo Dooley Code Status: Attempt Resuscitation Condition at Discharge: Good Discharge Disposition: 01 Home, Self Care - DIAGNOSES Admission Diagnoses: 1. Chronic pancreatitis 2. GERD 3. Abnormal liver enzymes 4. Chronic pain 5. Type 2 diabetes mellitus, controlled Discharge Diagnoses with Status of Each Condition: 1. Chronic pancreatitis: Stable 2. GERD: Stable 3. Abnormal liver enzymes: Improved 4. Chronic pain: Stable 5. Type 2 diabetes mellitus, controlled: Stable - HPI History of Present Illness: He is a 47-year-old man who has known chronic pancreatitis from chronic alcohol abuse. He has had multiple admissions to our hospital ever since he moved would be [place] in 2013. He thinks probably that he has had a total of 15-20 admissions over all since 2005. His last admission was in 2015. He has stopped drinking around the last time of his admission. 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 Although he has chronic daily abdominal aching, he has been able to maintain his weight. Eat his food. And control his pain. It has been a good year and 1/2-2 years. He has not gone back to drinking. His diet is steady. But for some reason he began having abdominal pain again. He was seen in the emergency room by Dr. Ruiz on March 19. He been having 2-1/2 weeks of abdominal pain on the right side. There is no diarrhea with this. No fever, no chills. Eating did not make it better or make it worse. If he moved around too much the pain definitely got worse. He was afebrile, and has low blood pressure but that is chronic for him. He had minimal right-sided abdominal pain but no rebound or guarding and normal bowel sounds. His white cell count was 7.2. And a CAT scan showed a hiatal hernia, acute exacerbation of pancreatitis with possible early pancreatic pseudocyst versus inflammation. He did not have a bowel obstruction or appendicitis. He was sent home on pain medicines, diet control. He cannot take the pain anymore and came back now. Again there is no emesis. No fever no chills. No jaundice. - HOSPITAL COURSE Hospital Course: (1) Chronic pancreatitis Qualifiers: Pancreatitis type: alcohol induced Qualified Code(s): K86.0 - Alcohol- induced chronic pancreatitis Assessment/Plan: This gentleman has unfortunate complications of his alcohol abuse with numerous episodes of acute pancreatitis now settling into chronic pancreatitis. He has not had any alcohol for close to 2 years. He presented with abdominal pain and had an elevated Lipase and was admitted for treatment of pain secondary to chronic pancreatitis. Patient's CT of the abdomen showed grossly abnormal appearance of the pancreas, likely a sequelae of severe chronic pancreatitis. Stranding around the pancreas was concerning for acute pancreatitis. There was architectural distortion around the pancreas head and uncinate process making it difficult to exclude an underlying pancreas neoplasm. There was a 2.3 cm rounded low density within the lateral wall of the second portion of the duodenum likely a mural pseudocyst. There was also a small 1.5 cm low density within the medial most aspect of the pancreas uncinate process, potentially another pseudocyst. Associated occlusion of the portal splenic confluence as well as CBD was noted. There was moderate intrahepatic biliary dilation. Pain has improved significantly over 2 day in the hospital Patient now able to tolerate a regular diet Patient placed on pancreatic enzymes with meals Given the CT findings an MRCP was ordered but MRI was down therefore patient will follow up with his PCP to get a referral for an MRCP. He may also need a GI consult for further evaluation of the architectural distortion seen on CT to rule out a neoplasm. Qualifiers: Pancreatitis type: alcohol induced Qualified Code(s): K86.0 - Alcohol- induced chronic pancreatitis (2) GERD (gastroesophageal reflux disease) Conclusion/Plan: IV proton pump inhibitor while he was in the hospital Patient also placed on carafate. Stable Qualifiers: Esophagitis presence: esophagitis presence not specified Qualified Code(s): K21.9 - Gastro-esophageal reflux disease without esophagitis (3) Abnormal liver enzymes Conclusion/Plan: Improved likely secondary to pancreatitis. (4) Chronic pain Conclusion/Plan: Patient back on home dose of methadone but requiring dilaudid IV at times. Discharged home with methadone and a few days worth of oxycodone. Qualifiers: Chronic pain type: other chronic pain Qualified Code(s): G89.29 - Other chronic pain (5) Type 2 diabetes mellitus, controlled Conclusion/Plan: BG was controlled in the hospital Patient was placed back on metformin at discharge. Qualifiers: Diabetes mellitus buttermaker continuous churn insulin use: without snf use Diabetes mellitus complication status: without complication Qualified Code(s): E11.9 - Type 2 diabetes mellitus without complications - ALLERGIES Allergies/Adverse Reactions: Allergies Allergy/AdvReac Type Severity Reaction Status Date / Time shellfish derived Allergy Respiratory Verified 03/23/18 00:18 - MEDICATIONS Home Medications: Ambulatory Orders Medication Instructions Recorded Confirmed Methadone 105 mg PO DAILY 02/21/17 03/23/18 metFORMIN [Glucophage] 500 mg DAILY 02/21/17 03/23/18 Sucralfate 1 gm PO ACHS #120 tablet 03/19/18 03/23/18 Famotidine 20 mg PO DAILY 03/23/18 03/23/18 Lisinopril 2.5 mg PO DAILY 03/23/18 03/23/18 Lipase/Protease/Amylase [Danyel Barfield 1 each PO TIDWM #90 capsule. 03/25/18 24,000 Units Capsule] Oxycodone HCl 10 mg PO Q8HR #10 tablet 03/25/18 - PHYSICAL EXAM AT DISCHARGE General Appearance: positive: No acute distress, Alert Eyes Bilateral: positive: Normal inspection, PERRL, EOMI, No lid inflammation, Conjunctivae nml, No scleral icterus ENT: positive: ENT inspection nml, Pharynx nml, No signs of dehydration. negative: Purulent nasal drainage, Pharyngeal erythema, Oral lesions Neck: positive: Nml inspection, Thyroid nml, No JVD, Trachea midline. negative: Thyromegaly, Lymphadenopathy (R), Lymphadenopathy (L), Carotid bruit, Tracheal deviation Respiratory: positive: Chest non-tender, No respiratory distress, Breath sounds nml. negative: Wheezes, Rales, Rhonchi Cardiovascular: positive: Regular rate & rhythm, No murmur, No gallop Peripheral Pulses: positive: 2+ Abdomen: positive: Tenderness (Mild). negative: Guarding, Rebound, Hepatomegaly Back: positive: Nml inspection. negative: CVA tenderness (R), CVA tenderness (L) Skin: positive: Color nml, No rash, Warm. negative: Cyanosis, Diaphoresis, Pallor, Skin rash Extremities: positive: Non-tender, Full ROM, Nml appearance, No pedal edema Neurologic/Psychiatric: positive: Oriented x3, CN's nml (2-12), Motor nml, Sensation nml, Mood/affect nml - LABS Result Diagrams: 03/25/18 04:50 03/25/18 04:50 Other Lab Results: Active Medications Generic Name Dose Route Start Last Admin Trade Name Freq PRN Reason Stop Dose Admin Lipase/Protease/Amylase 3 cap 03/24/18 08:00 03/25/18 08:[address] 5,000/17,000/27,000 Residential PO Not Given TIDWM DORA Hydromorphone HCl 1 mg 03/24/18 07:45 03/25/18 05:44 Dilaudid Inj Carp IVP 1 mg Q6H PRN Administration Pain 8 to 10 Sodium Chloride 1,000 mls @ 100 mls/hr 03/23/18 04:00 03/25/18 05:44 Normal Saline 0.9% IV 100 mls/hr .Q10H DORA Administration Insulin Aspart 1 - 5 unit 03/24/18 08:00 03/25/18 08:30 Novolog SUBQ Not Given 0800,1200,1700,2100 [facility] Protocol Ketorolac Tromethamine 30 mg 03/23/18 17:30 03/25/18 03:37 Toradol Inj (30mg) IVP 03/28/18 17:29 30 mg Q6HR PRN Administration PAIN Methadone HCl 105 mg 03/24/18 09:00 03/25/18 09:20 PO 105 mg DAILY DORA Administration Ondansetron HCl 4 mg 03/23/18 03:58 Zofran Inj IVP Q6HR PRN Nausea / Vomiting Ondansetron HCl 4 mg 03/23/18 03:58 Zofran Odt TL Q6HR PRN Nausea / Vomiting Pantoprazole Sodium 40 mg 03/23/18 07:00 03/25/18 06:46 Protonix IVP 40 mg QDAC DORA Administration Polyethylene Glycol 17 gm 03/23/18 09:00 03/25/18 08:44 Miralax PO Not Given DAILY DORA Prochlorperazine Edisylate 10 mg 03/23/18 03:58 Compazine Inj IVP Q6HR PRN Nausea / Vomiting Sodium Chloride 10 ml 03/23/18 03:58 03/24/18 20:51 Normal Saline Flush 0.9% IVP 10 ml PRN PRN Administration NEEDED PER PROVIDER ORDERS Sodium Chloride 10 ml 03/23/18 09:00 03/25/18 08:44 Normal Saline Flush 0.9% IVP Not Given 0100,0900,1700 DORA Sucralfate 1 gm 03/24/18 11:00 03/25/18 06:46 Carafate PO 1 gm ACHS DORA Administration Methadone 105 mg PO DAILY 02/21/17 metFORMIN [Glucophage] 500 mg DAILY 02/21/17 Famotidine 20 mg PO DAILY 03/23/18 Lisinopril 2.5 mg PO DAILY 03/23/18 Laboratory Results WBC 4.2 x10^3/uL (4.8-10.8) L 03/25/18 04:50 RBC 3.09 10^6/uL (4.70-6.10) L 03/25/18 04:50 Hgb 10.0 g/dL (14.0-18.0) L 03/25/18 04:50 Hct 28.9 % (42.0-52.0) L 03/25/18 04:50 MCV 93.5 fL (80.0-94.0) 03/25/18 04:50 MCH 32.4 pg (27.0-31.0) H 03/25/18 04:50 MCHC 34.7 g/dL (32.0-36.0) 03/25/18 04:50 RDW 12.2 % (12.0-15.0) 03/25/18 04:50 Plt Count 192 10^3/uL (130-450) 03/25/18 04:50 MPV 8.3 fL (7.4-11.4) 03/25/18 04:50 Neut # (Auto) 2.0 10^3/uL (1.5-6.6) 03/25/18 04:50 Lymph # (Auto) 1.6 10^3/uL (1.5-3.5) 03/25/18 04:50 [place] # (Auto) 0.4 10^3/uL (0.0-1.0) 03/25/18 04:50 Eos # (Auto) 0.2 10^3/uL (0.0-0.7) 03/25/18 04:50 Baso # (Auto) 0.0 10^3/uL (0.0-0.1) 03/25/18 04:50 Absolute Nucleated RBC 0.01 x10^3/uL 03/25/18 04:50 Nucleated RBC % 0.1 /100WBC 03/25/18 04:50 VBG pH 7.386 (7.31-7.41) 03/24/18 05:35 VBG pCO2 41.9 mmHg (41-51) 03/24/18 05:35 VBG pO2 58.9 mmHg (25-47) H 03/24/18 05:35 VBG HCO3 24.6 mmol/L (23-28) 03/24/18 05:35 VBG Total CO2 25.9 mmol/L (24-29) 03/24/18 05:35 VBG O2 Saturation 91.0 % (60-80) H 03/24/18 05:35 VBG Base Excess -0.5 mmol/L (-2 - +2) 03/24/18 05:35 Sodium 136 mmol/L (135-145) 03/25/18 04:50 Potassium 3.9 mmol/L (3.5-5.0) 03/25/18 04:50 Chloride 106 mmol/L (101-111) 03/25/18 04:50 Carbon Dioxide 26 mmol/L (21-32) 03/25/18 04:50 Anion Gap 4.0 (6-13) L 03/25/18 04:50 BUN 12 mg/dL (6-20) 03/25/18 04:50 Creatinine 0.7 mg/dL (0.6-1.2) 03/25/18 04:50 Estimated GFR (MDRD) 122 (>89) 03/25/18 04:50 Glucose 176 mg/dL (70-100) H 03/25/18 04:50 POC Whole Bld Glucose 144 mg/dL (70 - 100) H 03/25/18 07:30 Glycated Hemoglobin 8.8 % (4.6-6.2) H 03/23/18 04:55 Estim Average Glucose 206 (70-100) H 03/23/18 04:55 Calcium 8.2 mg/dL (8.5-10.3) L 03/25/18 04:50 Total Bilirubin < 0.2 mg/dL (0.2-1.0) L 03/25/18 04:50 AST 28 IU/L (10-42) 03/25/18 04:50 ALT 62 IU/L (10-60) H 03/25/18 04:50 Alkaline Phosphatase 100 IU/L (42-121) 03/25/18 04:50 Total Protein 5.5 g/dL (6.7-8.2) L 03/25/18 04:50 Albumin 3.5 g/dL (3.2-5.5) 03/25/18 04:50 Globulin 2.0 g/dL (2.1-4.2) L 03/25/18 04:50 Albumin/Globulin Ratio 1.8 (1.0-2.2) 03/25/18 04:50 Amylase 37 U/L (28-100) 03/25/18 04:50 Lipase 103 U/L (22-51) H 03/25/18 04:50 Urine Color YELLOW 03/23/18 01:20 Urine Clarity CLEAR (CLEAR) 03/23/18 01:20 Urine pH 7.0 PH (5.0-7.5) 03/23/18 01:20 Ur Specific [place] 1.015 (1.002-1.030) 03/23/18 01:20 Urine Protein NEGATIVE mg/dL (NEGATIVE) 03/23/18 01:20 Urine Glucose (UA) >=1000 mg/dL (NEGATIVE) H 03/23/18 01:20 Urine Ketones NEGATIVE mg/dL (NEGATIVE) 03/23/18 01:20 Urine Occult Blood SMALL (NEGATIVE) H 03/23/18 01:20 Urine Nitrite NEGATIVE (NEGATIVE) 03/23/18 01:20 Urine Bilirubin NEGATIVE (NEGATIVE) 03/23/18 01:20 Urine Urobilinogen 2 E.U./dL (NORMAL) H 03/23/18 01:20 Ur Leukocyte Esterase NEGATIVE (NEGATIVE) 03/23/18 01:20 Urine RBC 6-10 /HPF (0-5) H 03/23/18 01:20 Urine WBC 0-3 /HPF (0-3) 03/23/18 01:20 Ur Squamous Epith Cells MOD Squamous (<= Few) H 03/23/18 01:20 Urine Bacteria None Seen /HPF (None Seen) 03/23/18 01:20 Ur Microscopic Review INDICATED 03/23/18 01:20 Urine Culture Comments NOT INDICATED 03/23/18 01:20 - DIAGNOSTIC IMAGING Diagnostic Imaging Results: Final report reviewed Diagnostic Imaging Results Comments: Abdomen pelvis CT. Liver has no significant abnormality. Medium to large sliding hiatal hernia and paraesophageal hernia. No definite calcified gallstones. A moderate intrahepatic biliary ductal dilation is present. There is dilation of the common bile duct with narrowing occlusion within the pancreatic head region. He has multiple pancreatic calcifications present, several of which are likely intraductal in location. There is moderate ductal dilation within the pancreas neck and head region. Relative atrophy of the distal body and the tail of the pancreas. Architectural distortion and scarring couple with cirrhosis changes seen within the retroperitoneum and around the pancreatic head and uncinate process. There is a small low-density abnormality along the medialmost aspect of the pancreas uncinate process, measuring 1.5 cm. Spleen was normal. Kidneys were normal. He has a small 2.3 cm density located within the bowel wall adjacent to the duodenal bulb. This is unchanged from previous CT. - FOLLOW UP Follow Up: Patient was admitted for pancreatitis which improved over a 2-day course in the hospital. Patient will follow up with his primary care physician later this week. Patient needs a referral for an MRCP and possibly a gastroenterology consultation as he has architectural distortion on CT of his pancreas and neoplasm cannot be ruled out from CT scan. The patient may need an endoscopic ultrasound if MRCP cannot rule out neoplasm. Patient was discharged home in stable condition and started on pancreatic enzymes with meals and given a short supply of oxycodone. His pain was otherwise pretty well controlled at discharge and he was eating a regular diet. - TIME SPENT Time Spent in Discharge (Minutes): 35
[2018-03-25 11:30] VITALS: BP 121/76
== END 2018-03-25 11:45 | disposition home or self-care (01) | DRG 439 ==
LOC: ED 00:09 → MS3 03:58
PROVIDERS: ADMIT Specialist; ATTEND Internal Medicine
DX: K85.20 Alcohol induced acute pancreatitis without necrosis or infection (principal); K86.3 Pseudocyst of pancreas; K21.9 Gastro-esophageal reflux disease without esophagitis; G89.29 Other chronic pain; E11.9 Type 2 diabetes mellitus without complications; R79.89 Other specified abnormal findings of blood chemistry; K44.9 Diaphragmatic hernia without obstruction or gangrene; F17.210 Nicotine dependence, cigarettes, uncomplicated; F32.9 Major depressive disorder, single episode, unspecified; F41.9 Anxiety disorder, unspecified; R94.8 Abnormal results of function studies of other organs and systems; R93.3 Abnormal findings on diagnostic imaging of other parts of digestive tract; Z79.891 Long term (current) use of opiate analgesic; Z79.84 Long term (current) use of oral hypoglycemic drugs
CPT/HCPCS: 36415; 74177; 80053; 81001; 81003; 82150; 82803; 83036; 83690; 85025; 87086; 96361; 96365; 96375; 96376; 99284; 99285

== ENCOUNTER 2018-05-09 15:54 | Outpatient (CLI) | payer OTHER | END 2018-05-09 15:55 | disposition home or self-care (01) | LOC: DI 15:54 | PROVIDERS: ATTEND Physician Assistant Medical | DX: Z53.9 Procedure and treatment not carried out, unspecified reason (principal) ==

== ENCOUNTER 2018-05-17 07:30 | Outpatient (CLI) | payer OTHER ==
[2018-05-17 08:11] LABS: ALBUMIN 4.5 g/dL (3.2-5.5); ALBUMIN/GLOBULIN RATIO 1.7 (1.0-2.2); ALKALINE PHOSPHATASE 70 IU/L (42-121); ALT ALANINE AMINOTRANSFERASE 23 IU/L (10-60); AST ASPARTATE AMINOTRANSFERASE 19 IU/L (10-42); BILIRUBIN,TOTAL 0.6 mg/dL (0.2-1.0); BUN - BLOOD UREA NITROGEN 17 mg/dL (6-20); CALCIUM 9.1 mg/dL (8.5-10.3); CARBON DIOXIDE - CO2 30 mmol/L (21-32); CHLORIDE 95 mmol/L (101-111); CHOL/HDL RATIO 4.4 (<5.0); CHOLESTEROL 170 mg/dL; CREATININE 0.8 mg/dL (0.6-1.2); GFR - MDRD 105 (>89); GLUCOSE 226 mg/dL (70-100); HDL CHOLESTEROL 39 mg/dL; LDL CHOLESTEROL,CALCULATED 71 mg/dL; LDL/HDL RATIO 1.8 (<3.6); LIPASE 43 U/L (22-51); SODIUM 133 mmol/L (135-145); TOTAL PROTEIN 7.1 g/dL (6.7-8.2); VLDL CHOLESTEROL 60 mg/dL
[2018-05-17 08:19] LABS: PT - PROTHROMBIN TIME 10.8 secs (9.9-12.6)
[2018-05-17 08:23] LABS: BASOPHILS % (AUTO) 0.3 %; EOSINOPHILS # (AUTO) 0.2 10^3/uL (0.0-0.7); EOSINOPHILS % (AUTO) 2.7 %; LYMPHOCYTES # (AUTO) 1.9 10^3/uL (1.5-3.5); LYMPHOCYTES % (AUTO) 27.1 %; MEAN CORPUSCULAR HEMOGLOBIN 31.8 pg (27.0-31.0); MEAN CORPUSCULAR HGB CONC 34.9 g/dL (32.0-36.0); MEAN PLATELET VOLUME 8.5 fL (7.4-11.4); MONOCYTES # (AUTO) 0.5 10^3/uL (0.0-1.0); MONOCYTES % (AUTO) 7.6 %; NEUTROPHILS # (AUTO) 4.3 10^3/uL (1.5-6.6); NEUTROPHILS % (AUTO) 62.3 %; PLT - PLATELET COUNT 216 10^3/uL (130-450); RED BLOOD COUNT 4.09 10^6/uL (4.70-6.10); RED CELL DISTRIBUTION WIDTH 12.5 % (12.0-15.0); WHITE BLOOD COUNT 6.9 x10^3/uL (4.8-10.8)
== END 2018-05-17 07:31 | disposition home or self-care (01) ==
LOC: LAB 07:30
PROVIDERS: ATTEND Internal Medicine Gastroenterology
DX: K86.1 Other chronic pancreatitis (principal); R10.13 Epigastric pain; E11.9 Type 2 diabetes mellitus without complications; K86.89 Other specified diseases of pancreas; D64.9 Anemia, unspecified; E78.5 Hyperlipidemia, unspecified; E78.1 Pure hyperglyceridemia
CPT/HCPCS: 36415; 80053; 80061; 83690; 83721; 85025; 85610

== ENCOUNTER 2018-05-24 07:54 | Outpatient (CLI) | payer OTHER ==
[2018-05-24] MEDS ORDERED: GADOBUTROL 7.5 MMOL/7.5 ML VIAL ONE (08:00)
[2018-05-24] MEDS ORDERED: GADOBUTROL 7.5 MMOL/7.5 ML VIAL IVP ONE ×2 (10:01)
--- NOTE | 2018-05-24 11:40 | MRI Report ---
Reason: CHRONIC PANCREATITIS, MASS OF PANCREAS, EPIGASTRIC Procedure Date: 05/24/2018 Accession Number: [id number] / [id number] Procedure: MRI - Abdomen W/WO CPT Code: FULL RESULT: EXAM: MR ABDOMEN WITH AND WITHOUT CONTRAST (MR PANCREAS AND MRCP) EXAM DATE: 05/24/2018 09:34 AM. CLINICAL HISTORY: Chronic pancreatitis, mass of pancreas, epigastric. COMPARISON: Abdomen/pelvis with contrast 03/23/2018 2:40 AM. TECHNIQUE: Multiplanar breath-hold T1, T2, and DWI sequences obtained through the pancreas and abdomen on an MR scanner. Dedicated 2D and 3D MRCP sequences obtained through the biliary and pancreatic ducts. Images obtained before and after administration of 7 mL intravenous contrast. Multiphase postcontrast sequences obtained through the pancreas. FINDINGS: Lung Bases: The lung bases are clear. Liver: The liver has normal size, morphology and signal. No evidence of mass. The intrahepatic ducts appear normal. CBD: The CBD is dilated, tapers smoothly distally and measures 11 mm in diameter. Gallbladder: The gallbladder is partially distended and appears normal with no wall thickening or stone. Pancreas: Architecture/anatomy is markedly distorted limiting evaluation for subtle mass. Enhancement in the head of the pancreas region is felt to most likely represent residual otherwise atrophied parenchyma or inflammation with no contour-deforming bulge to increase suspicion for mass. Atrophied parenchymal background with signal dropout consistent with known calcifications is again seen. There is no suspicious enhancing mass within the pancreas. Previously seen cystic lesions within the pancreas are again seen and measure up to 1.4 cm. Some of these demonstrate connection to the pancreatic side branch ducts and are therefore consistent with IPMN. Others likely represent sequelae of pancreatitis/pseudocyst. The pancreatic duct is dilated and measures 10 mm. There is no stricture. Spleen: The spleen appears normal. Kidneys and Adrenals: The kidneys appear normal with no mass or hydronephrosis. There are no cysts in the kidneys. The adrenals appear normal. Bowel: The small bowel and colon appear normal with no inflammation or obstruction. Retroperitoneum: The retroperitoneal structures appear normal with no mass or lymphadenopathy. Hiatal hernia is unchanged. IMPRESSION: Limited ability to exclude pancreatic head mass due to marked architectural distortion. Recommend follow-up MRI pancreatic mass protocol in 6-12 months or endoscopy for consideration of ERCP versus EUS for further evaluation. RADIA
== END 2018-05-24 07:55 | disposition home or self-care (01) ==
LOC: DI 07:54
PROVIDERS: ATTEND Physician Assistant Medical
DX: K86.1 Other chronic pancreatitis (principal); K86.89 Other specified diseases of pancreas; R10.13 Epigastric pain
CPT/HCPCS: 74183; A9585

== ENCOUNTER 2018-06-06 18:51 | Emergency (ER) | payer OTHER ==
[2018-06-06 19:32] LABS: BASOPHILS % (AUTO) 0.7 %; EOSINOPHILS # (AUTO) 0.2 10^3/uL (0.0-0.7); EOSINOPHILS % (AUTO) 3.3 %; LYMPHOCYTES # (AUTO) 2.3 10^3/uL (1.5-3.5); LYMPHOCYTES % (AUTO) 31.8 %; MEAN CORPUSCULAR HEMOGLOBIN 30.9 pg (27.0-31.0); MEAN CORPUSCULAR HGB CONC 33.3 g/dL (32.0-36.0); MEAN CORPUSCULAR VOLUME 92.6 fL (80.0-94.0); MEAN PLATELET VOLUME 7.8 fL (7.4-11.4); MONOCYTES # (AUTO) 0.5 10^3/uL (0.0-1.0); NEUTROPHILS # (AUTO) 4.1 10^3/uL (1.5-6.6); NEUTROPHILS % (AUTO) 57.2 %; PLT - PLATELET COUNT 254 10^3/uL (130-450); RED CELL DISTRIBUTION WIDTH 12.8 % (12.0-15.0); WHITE BLOOD COUNT 7.2 x10^3/uL (4.8-10.8)
[2018-06-06 19:43] LABS: BILIRUBIN,URINE NEGATIVE (NEGATIVE); GLUCOSE, URINE (UA) >=1000 mg/dL (NEGATIVE); KETONES,URINE (UA) NEGATIVE (NEGATIVE); LEUKOCYTE ESTERASE, URINE NEGATIVE (NEGATIVE); NITRITE,URINE NEGATIVE (NEGATIVE); OCCULT BLOOD,URINE SMALL (NEGATIVE); PH,URINE 6.5 PH (5.0-7.5); PROTEIN,URINE NEGATIVE (NEGATIVE); UROBILINOGEN,URINE 0.2 (NORMAL) E.U./dL (NORMAL)
[2018-06-06 19:47] LABS: ALBUMIN 4.8 g/dL (3.2-5.5); ALBUMIN/GLOBULIN RATIO 1.8 (1.0-2.2); BILIRUBIN,TOTAL 0.4 mg/dL (0.2-1.0); CALCIUM 9.2 mg/dL (8.5-10.3); CREATININE 0.7 mg/dL (0.6-1.2); TOTAL PROTEIN 7.4 g/dL (6.7-8.2)
--- NOTE | 2018-06-06 19:55 | ED Physician Documentation ---
PD HPI ABD PAIN - Stated complaint Stated Complaint: ABD PX - Chief complaint Chief Complaint: Abd Pain - Additional information Additional information: 48-year-old male with a history of chronic pancreatitis who manages his pain with methadone presents the emergency department with increasing generalized abdominal pain which is not been controlled with methadone. The patient reports this is similar to prior episodes he is experienced of acute pancreatitis. The patient denies vomiting or diarrhea. No fevers or chills. No triggering factors. No relieving factors. No other associated symptoms Review of Systems Constitutional: reports: Fatigue. denies: Fever Eyes: denies: Discharge Ears: denies: Ear pain Nose: denies: Congestion Throat: denies: Oral lesions / sores, Sore throat Cardiac: denies: Chest pain / pressure Respiratory: denies: Cough GI: reports: Abdominal Pain : denies: Dysuria Skin: denies: Rash Musculoskeletal: denies: Neck pain Neurologic: denies: Generalized weakness Psychiatric: denies: Depressed PD PAST MEDICAL HISTORY - Past Medical History Past Medical History: Yes Cardiovascular: None Respiratory: None Neuro: None Endocrine/Autoimmune: Type 2 diabetes GI: GERD, Hiatal hernia, Pancreatitis : None HEENT: None Psych: Depression Musculoskeletal: None Derm: None - Past Surgical History Past Surgical History: Yes Derm: Other - Present Medications Home Medications: Ambulatory Orders Medication Instructions Recorded Confirmed Methadone 100 mg PO DAILY 02/21/17 06/06/18 metFORMIN [Glucophage] 500 mg DAILY 02/21/17 03/23/18 Lipase/Protease/Amylase [Danyel Barfield 1 each PO TIDWM #90 capsule. 03/25/18 24,000 Units Capsule] Atorvastatin [Lipitor] 06/06/18 06/06/18 Omeprazole 20 mg PO 06/06/18 06/06/18 buPROPion [Wellbutrin Sr] 100 mg PO BID 06/06/18 06/06/18 - Allergies Allergies/Adverse Reactions: Allergies Allergy/AdvReac Type Severity Reaction Status Date / Time shellfish derived Allergy Respiratory Verified 06/06/18 18:58 - Social History Does the pt smoke?: Yes Smoking Status: Current every day smoker Does the pt drink ETOH?: No Does the pt have substance abuse?: No - Immunizations Immunizations are current?: Yes - POLST Patient has POLST: No POLST Status: Full Code (However he only wants CPR. He does not want intubation.) PD ED PE NORMAL - General General: Alert and oriented X 3, No acute distress - HEENT HEENT: Atraumatic, PERRL, EOMI, Ears normal - Neck Neck: Supple, no meningeal sign - Cardiac Cardiac: RRR, Strong equal pulses - Abdomen Abdomen: Normal bowel sounds, Soft. No: Non tender (The patient has generalized abdominal tenderness, no rebound or peritoneal signs) - Back Back: No CVA TTP - Derm Derm: Normal color - Extremities Extremities: No deformity - Neuro Neuro: Alert and oriented X 3, Normal speech - Psych Psych: Normal affect Results - Vitals Vitals: Vital Signs - 24 hr 06/06/18 06/06/18 06/06/18 18:56 20:24 22:09 Temperature 36.3 C L Heart Rate 89 75 72 Respiratory 18 16 18 Rate Blood Pressure 145/87 H 118/79 109/68 O2 Saturation 99 96 96 Oxygen O2 Source Room air - Labs Labs: Laboratory Tests 06/06/18 06/06/18 06/06/18 19:20 19:20 19:20 WBC 7.2 RBC 4.20 L Hgb 13.0 L Hct 38.8 L MCV 92.6 MCH 30.9 MCHC 33.3 RDW 12.8 Plt Count 254 MPV 7.8 Neut # (Auto) 4.1 Lymph # (Auto) 2.3 [place] # (Auto) 0.5 Eos # (Auto) 0.2 Baso # (Auto) 0.0 Absolute Nucleated RBC 0.00 Nucleated RBC % 0.0 Sodium 132 L Potassium 4.7 Chloride 97 L Carbon Dioxide 26 Anion Gap 9.0 BUN 18 Creatinine 0.7 Estimated GFR (MDRD) 121 Glucose 304 H POC Whole Bld Glucose Calcium 9.2 Total Bilirubin 0.4 AST 25 ALT 27 Alkaline Phosphatase 76 Total Protein 7.4 Albumin 4.8 Globulin 2.6 Albumin/Globulin Ratio 1.8 Lipase 78 H Urine Color YELLOW Urine Clarity CLEAR Urine pH 6.5 Ur Specific [place] 1.015 Urine Protein NEGATIVE Urine Glucose (UA) >=1000 H Urine Ketones NEGATIVE Urine Occult Blood SMALL H Urine Nitrite NEGATIVE Urine Bilirubin NEGATIVE Urine Urobilinogen 0.2 (NORMAL) Ur Leukocyte Esterase NEGATIVE Urine RBC 6-10 H Urine WBC 0-3 Ur Squamous Epith Cells FEW Squamous Urine Bacteria Rare Ur Microscopic Review INDICATED Urine Culture Comments NOT INDICATED 06/06/18 06/06/18 20:17 21:03 WBC RBC Hgb Hct MCV MCH MCHC RDW Plt Count MPV Neut # (Auto) Lymph # (Auto) [place] # (Auto) Eos # (Auto) Baso # (Auto) Absolute Nucleated RBC Nucleated RBC % Sodium Potassium Chloride Carbon Dioxide Anion Gap BUN Creatinine Estimated GFR (MDRD) Glucose POC Whole Bld Glucose 284 H 99 Calcium Total Bilirubin AST ALT Alkaline Phosphatase Total Protein Albumin Globulin Albumin/Globulin Ratio Lipase Urine Color Urine Clarity Urine pH Ur Specific [place] Urine Protein Urine Glucose (UA) Urine Ketones Urine Occult Blood Urine Nitrite Urine Bilirubin Urine Urobilinogen Ur Leukocyte Esterase Urine RBC Urine WBC Ur Squamous Epith Cells Urine Bacteria Ur Microscopic Review Urine Culture Comments - Rads (name of study) CT abd/pelvis Radiology: Final report received (IMPRESSION: 1. Chronic pancreatitis with calcification and dilated pancreatic duct. ) PD MEDICAL DECISION MAKING - ED course ED course: Reevaluation the patient's symptoms are under much better control. The patient currently appears appropriate for discharge and ongoing outpatient management. The patient is scheduled to have further workup with gastroenterology this month. I discussed with the patient warning signs and recommended returning for any worsening or any concerns. Departure - Departure Disposition: 01 Home, Self Care Clinical Impression: Abdominal pain Qualifiers: Abdominal location: unspecified location Qualified Code(s): R10.9 - Unspecified abdominal pain Chronic pancreatitis Qualifiers: Pancreatitis type: unspecified pancreatitis type Qualified Code(s): K86.1 - Other chronic pancreatitis Condition: Good Instructions: Abdominal Pain Follow-Up: Geronimo Dooley PA-C [Primary Care Provider] - Within 1 week Comments: Please follow-up with the manager budget as scheduled Please return to the emergency department for any worsening or any concerns.
[2018-06-06 19:56] LABS: CLARITY,URINE CLEAR (CLEAR)
[2018-06-06] MEDS ORDERED: fentaNYL 100 MCG/2 ML VIAL IVP STA (19:57)
[2018-06-06] MEDS ORDERED: SODIUM CHLORIDE 0.9% 1,000 ML IV ONE (19:57)
[2018-06-06] MEDS ORDERED: METOCLOPRAMIDE 10 MG/2 ML VIAL IVP STA (19:57)
[2018-06-06 20:06] LABS: BACTERIA,URINE Rare /HPF (None Seen); SQUAMOUS EPITHELIAL CELL,UR FEW Squamous (<= Few)
[2018-06-06] MEDS ORDERED: INSULIN REGULAR HUMAN 100 UNIT/1 ML 10 ML MDV IVP STA (20:08)
[2018-06-06] MEDS ORDERED: IOVERSOL 320 100 ML VIAL IVP ONE ×2 (20:33→20:59)
--- NOTE | 2018-06-06 21:45 | CT Report ---
Reason: pain Procedure Date: 06/06/2018 Accession Number: [id number] / [id number] Procedure: CT - Abdomen/Pelvis W/ CPT Code: FULL RESULT: EXAM: CT ABDOMEN AND PELVIS EXAM DATE: 06/06/2018 08:36 PM. CLINICAL HISTORY: Pain. Lower abdomen pain for last week. Chronic pancreatitis. COMPARISONS: Abdomen/pelvis with contrast 03/23/2018 2:40 AM. Abdomen with and without contrast 05/24/2018 8:24 AM. TECHNIQUE: Routine helical CT imaging was performed through the abdomen and pelvis. IV contrast: 90 mL Optiray- 320. Enteric contrast: No. Reconstructions: Coronal and sagittal. In accordance with CT protocol optimization, one or more of the following dose reduction techniques were utilized for this exam: automated exposure control, adjustment of mA and/or KV based on patient size, or use of iterative reconstructive technique. FINDINGS: Lung bases: Moderate hiatal hernia. Minimal consolidation medially in the right lower lobe, most likely atelectasis. Liver: No focal liver lesions are seen. Mild central intrahepatic bile duct dilatation, unchanged. Gallbladder: Unremarkable. Mildly dilated common duct measuring 9 mm, unchanged. Pancreas: Calcification of the pancreas is seen with chronic pancreatitis. Dilated pancreatic ducts appears unchanged. Mild stranding seen adjacent to the neck of the pancreas, appears unchanged from the prior, could represent mild acute pancreatitis versus chronic. No pseudocyst or abscess. Spleen: Unremarkable. Adrenals: Unremarkable. Kidneys: Unremarkable. Bowel: Moderate hiatal hernia. Normal appendix. No acute bowel findings are seen. No free fluid or free air. Pelvis: The bladder and remaining pelvic organs appear unremarkable. A few rounded elongated calcifications are seen scattered in the pelvis, unchanged. Vasculature: No acute findings. Bones: No acute bone findings. IMPRESSION: 1. Chronic pancreatitis with calcification and dilated pancreatic duct. Mild stranding seen adjacent to the neck of the pancreas, appears similar to the prior, could represent mild acute pancreatitis versus chronic. 2. Moderate hiatal hernia. 3. Mild intrahepatic and extrahepatic bile duct dilatation, unchanged. 4. Normal appendix. 5. See above. RADIA
[2018-06-06 22:10] VITALS: BP 109/68
== END 2018-06-06 22:30 | disposition home or self-care (01) ==
LOC: ED 18:51
DX: R10.84 Generalized abdominal pain (principal); K86.1 Other chronic pancreatitis; F17.200 Nicotine dependence, unspecified, uncomplicated
CPT/HCPCS: 36415; 74177; 80053; 81001; 83690; 85025; 96361; 96374; 99283; J1815; J2765; Q9967; 81003; 87086

== ENCOUNTER 2018-09-24 22:48 | Emergency (ER) | payer OTHER ==
[2018-09-24] MEDS ORDERED: METOCLOPRAMIDE 10 MG/2 ML VIAL IVP STA (23:22)
[2018-09-24] MEDS ORDERED: DICYCLOMINE 10 MG CAPSULE PO STA (23:22)
[2018-09-24] MEDS ORDERED: IOPAMIDOL-300 100 ML VIAL ONE (23:36)
[2018-09-24 23:37] LABS: BASOPHILS # (AUTO) 0.1 10^3/uL (0.0-0.1); BASOPHILS % (AUTO) 0.8 %; EOSINOPHILS # (AUTO) 0.3 10^3/uL (0.0-0.7); EOSINOPHILS % (AUTO) 4.2 %; HGB - HEMOGLOBIN 12.6 g/dL (14.0-18.0); LYMPHOCYTES # (AUTO) 2.8 10^3/uL (1.5-3.5); LYMPHOCYTES % (AUTO) 38.4 %; MEAN CORPUSCULAR HEMOGLOBIN 31.5 pg (27.0-31.0); MEAN CORPUSCULAR HGB CONC 34.8 g/dL (32.0-36.0); MEAN CORPUSCULAR VOLUME 90.8 fL (80.0-94.0); MEAN PLATELET VOLUME 7.8 fL (7.4-11.4); MONOCYTES # (AUTO) 0.6 10^3/uL (0.0-1.0); MONOCYTES % (AUTO) 8.4 %; NEUTROPHILS # (AUTO) 3.5 10^3/uL (1.5-6.6); NEUTROPHILS % (AUTO) 48.2 %; PLT - PLATELET COUNT 232 10^3/uL (130-450); RED BLOOD COUNT 3.98 10^6/uL (4.70-6.10); WHITE BLOOD COUNT 7.3 x10^3/uL (4.8-10.8)
[2018-09-24 23:46] LABS: ALBUMIN 4.7 g/dL (3.2-5.5); ALBUMIN/GLOBULIN RATIO 2.1 (1.0-2.2); BILIRUBIN,TOTAL 0.6 mg/dL (0.2-1.0); CALCIUM 9.1 mg/dL (8.5-10.3); CREATININE 0.7 mg/dL (0.6-1.2); TOTAL PROTEIN 6.9 g/dL (6.7-8.2)
[2018-09-25] MEDS ORDERED: IOPAMIDOL-300 100 ML VIAL IVP ONE (00:08)
[2018-09-25] MEDS ORDERED: KETOROLAC 30 MG/ML VIAL IVP STA (00:28)
[2018-09-25] MEDS ORDERED: MAG HYDROX/AL HYDROX/SIMETH 30 ML UDC PO STA (00:30)
--- NOTE | 2018-09-25 00:43 | CT Report ---
Reason: Abd pain, chronic pancreatitis Procedure Date: 09/25/2018 Accession Number: [id number] / [id number] Procedure: CT - Abdomen/Pelvis W CPT Code: FULL RESULT: EXAM: CT ABDOMEN AND PELVIS EXAM DATE: 09/25/2018 12:09 AM. CLINICAL HISTORY: Abd pain, chronic pancreatitis. COMPARISONS: ABDOMEN/PELVIS W/ 06/06/2018 8:35 PM. TECHNIQUE: Routine helical CT imaging was performed through the abdomen and pelvis. IV contrast: ISOVUE 300 100mL. Enteric contrast: No. Reconstructions: Coronal and sagittal. In accordance with CT protocol optimization, one or more of the following dose reduction techniques were utilized for this exam: automated exposure control, adjustment of mA and/or KV based on patient size, or use of iterative reconstructive technique. FINDINGS: Lung Bases: Unremarkable. Liver: Normal. No masses. Gallbladder/Bile Ducts: There is intra-and extrahepatic bile duct dilatation. The common bile duct measures 1.1 cm. The gallbladder demonstrates no acute CT abnormalities. Spleen: Normal. Pancreas: There is chronic pancreatitis. There are pancreatic calcifications, truncation of the pancreatic tail, and pancreatic duct dilatation. There is mild peripancreatic fat stranding. Adrenal Glands: Normal. Kidneys: Normal. No masses or hydronephrosis. Peritoneal Cavity/Bowel: There is a moderate to large size hiatal hernia. Stomach and small bowel demonstrate no acute abnormalities. There are no enlarged mesenteric or retroperitoneal lymph nodes. There is stable small calcified nodules within the right lower quadrant and pelvis. The appendix is well visualized and normal. Pelvic Organs: Normal. The bladder and visualized pelvic organs are within normal limits. Vasculature: No aneurysms or other significant abnormality. Bones: No significant abnormality. Other: None. IMPRESSION: 1. There is acute on chronic pancreatitis. 2. There is intra-and extrahepatic bile duct dilatation. 3. There is a moderate to large size hiatal hernia. 4. There is no evidence of bowel obstruction or appendicitis. RADIA
--- NOTE | 2018-09-25 00:47 | ED Physician Documentation ---
PD HPI ABD PAIN - Stated complaint Stated Complaint: LOW RT ABD PX/VOM - Chief complaint Chief Complaint: Abd Pain - History obtained from History obtained from: Patient - History of Present Illness Timing - onset: How many hours ago (6) Timing - duration: Hours (6) Timing - details: Gradual onset Pain level max: 3 Pain level now: 3 Severity Comments: mild Quality: Dull Location: RLQ Radiation: No: Chest, Left flank, Right flank Improved by: Laying still Worsened by: Eating Associated symptoms: Vomiting. No: Fever, Nausea Similar symptoms before: Diagnosis (Chronic pancreatitis) Review of Systems Ten Systems: 10 systems reviewed and negative Constitutional: reports: Reviewed and negative Eyes: reports: Reviewed and negative Ears: reports: Reviewed and negative Nose: reports: Reviewed and negative Throat: reports: Reviewed and negative Cardiac: reports: Reviewed and negative Respiratory: reports: Reviewed and negative GI: reports: Reviewed and negative : reports: Reviewed and negative Skin: reports: Reviewed and negative Musculoskeletal: reports: Reviewed and negative Neurologic: reports: Reviewed and negative Psychiatric: reports: Reviewed and negative Endocrine: reports: Reviewed and negative Immunocompromised: reports: Reviewed and negative PD PAST MEDICAL HISTORY - Past Medical History Cardiovascular: None Respiratory: None Neuro: None Endocrine/Autoimmune: Type 1 diabetes GI: GERD, Hiatal hernia, Pancreatitis : Nocturia HEENT: None Psych: Depression Musculoskeletal: None Derm: None - Past Surgical History Past Surgical History: Yes Derm: Other Other past surgical history: Reviewed and not pertinent - Present Medications Home Medications: Ambulatory Orders Medication Instructions Recorded Confirmed Lipase/Protease/Amylase [Danyel Barfield 1 each PO TIDWM #90 capsule. 03/25/18 08/15/18 24,000 Units Capsule] Atorvastatin [Lipitor] 10 mg PO DAILY 06/06/18 08/15/18 Omeprazole 20 mg PO DAILY 06/06/18 08/15/18 buPROPion [Wellbutrin Sr] 300 mg PO DAILY 06/06/18 08/15/18 Insulin Glargine [Lantus Solostar] 14 unit SQ DAILY PM 08/15/18 08/15/18 - Allergies Allergies/Adverse Reactions: Allergies Allergy/AdvReac Type Severity Reaction Status Date / Time shellfish derived Allergy Respiratory Verified 09/24/18 23:02 - Living Situation Living Situation: reports: Alone Living Arrangement: reports: At home - Social History Does the pt smoke?: Yes Smoking Status: Current every day smoker Does the pt drink ETOH?: No Does the pt have substance abuse?: No - Family History Family history: reports: Other (Reviewed and not pertinent) - Immunizations Immunizations are current?: Yes - POLST Patient has POLST: No POLST Status: Full Code (However he only wants CPR. He does not want intubation.) PD ED PE NORMAL - Vitals Vital signs reviewed: Yes - General General: Alert and oriented X 3, No acute distress - HEENT HEENT: PERRL - Neck Neck: Supple, no meningeal sign - Cardiac Cardiac: RRR, No murmur - Respiratory Respiratory: Clear bilaterally - Abdomen Abdomen: Normal bowel sounds, Soft, Non distended, Other (Generalized abdominal tenderness with no guarding or rebound.) - Derm Derm: Warm and dry - Extremities Extremities: No deformity - Neuro Neuro: Alert and oriented X 3 - Psych Psych: Normal mood, Normal affect Results - Vitals Vitals: Vital Signs - 24 hr 09/24/18 22:59 Temperature 36.1 C L Heart Rate 87 Respiratory 20 Rate Blood Pressure 139/93 H O2 Saturation 98 Oxygen O2 Source Room air - Labs Labs: Laboratory Tests 09/24/18 09/24/18 23:23 23:23 WBC 7.3 RBC 3.98 L Hgb 12.6 L Hct 36.1 L MCV 90.8 MCH 31.5 H MCHC 34.8 RDW 13.0 Plt Count 232 MPV 7.8 Neut # (Auto) 3.5 Lymph # (Auto) 2.8 [place] # (Auto) 0.6 Eos # (Auto) 0.3 Baso # (Auto) 0.1 Absolute Nucleated RBC 0.00 Nucleated RBC % 0.0 Sodium 136 Potassium 4.1 Chloride 98 L Carbon Dioxide 28 Anion Gap 10.0 BUN 23 H Creatinine 0.7 Estimated GFR (MDRD) 121 Glucose 119 H Calcium 9.1 Total Bilirubin 0.6 AST 50 H ALT 36 Alkaline Phosphatase 111 Total Protein 6.9 Albumin 4.7 Globulin 2.2 Albumin/Globulin Ratio 2.1 Lipase 107 H - Rads (name of study) Abdominal CT Radiology: Final report received PD MEDICAL DECISION MAKING - ED course Complexity details: reviewed results, re-evaluated patient, considered differential, d/w patient ED course: 48-year-old male with history of chronic pancreatitis presents with abdominal pain. Labs and CT imaging consistent with acute on chronic pancreatitis. Patient was able to p.o. without difficulty and shared decision making was employed to consider admission versus discharge. Patient prefers to discharge home and will return if symptoms worsen.Return precautions were reviewed.I personally reviewed CT and lab results with the patient who verbalized understanding. Departure - Departure Disposition: Home, Self Care Clinical Impression: Pancreatitis Qualifiers: Chronicity: chronic Pancreatitis type: unspecified pancreatitis type Qualified Code(s): K86.1 - Other chronic pancreatitis Condition: Stable Instructions: Pancreatitis Chronic Dc Follow-Up: Douglas Duval MD [Primary Care Provider] - Comments: You have acute on chronic pancreatitis. If your symptoms worsen to the point where you are not able to keep down food or liquids or if your symptoms worsen please return to the emergency department for admission to the hospital, IV antibiotics, IV fluids. Follow-up with PCP within 24 hours for recheck. Return with worsening symptoms.
[2018-09-25 01:11] VITALS: BP 130/88
== END 2018-09-25 01:12 | disposition home or self-care (01) ==
LOC: ED 22:48
DX: K85.90 Acute pancreatitis without necrosis or infection, unspecified (principal); K86.1 Other chronic pancreatitis; E10.9 Type 1 diabetes mellitus without complications
CPT/HCPCS: 36415; 74177; 80053; 83690; 85025; 96374; 96375; 99283; A9270; J2765; Q9967

== ENCOUNTER → 2019-01-01 | Outpatient (CLI) | payer MEDICAID, OTHER ==
[2019-01-01 12:24] LABS: CALCIUM 9.2 mg/dL (8.5-10.3); CREATININE 0.9 mg/dL (0.6-1.2)
[2019-01-01 12:46] LABS: HB2 TOTAL 12.6 g/dL; HEMOGLOBIN A1C 0.74 g/dL; HEMOGLOBIN A1C % 7.5 % (4.6-6.2)
== END ==
LOC: LAB.N 08:00
PROVIDERS: ATTEND Physician Assistant Medical
DX: E11.9 Type 2 diabetes mellitus without complications (principal)
CPT/HCPCS: 36415; 80048; 83036

== ENCOUNTER 2019-09-22 08:28 | Outpatient (CLI) | payer OTHER ==
[2019-09-22 12:04] LABS: BASOPHILS % (AUTO) 0.5 %; EOSINOPHILS # (AUTO) 0.2 10^3/uL (0.0-0.7); EOSINOPHILS % (AUTO) 4.6 %; HGB - HEMOGLOBIN 13.4 g/dL (14.0-18.0); LYMPHOCYTES # (AUTO) 1.8 10^3/uL (1.5-3.5); LYMPHOCYTES % (AUTO) 44.1 %; MEAN CORPUSCULAR HEMOGLOBIN 33.3 pg (27.0-31.0); MEAN CORPUSCULAR HGB CONC 34.4 g/dL (32.0-36.0); MEAN CORPUSCULAR VOLUME 96.5 fL (80.0-94.0); MEAN PLATELET VOLUME 11.4 fL (7.4-11.4); MONOCYTES # (AUTO) 0.4 10^3/uL (0.0-1.0); MONOCYTES % (AUTO) 8.5 %; NEUTROPHILS # (AUTO) 1.7 10^3/uL (1.5-6.6); NEUTROPHILS % (AUTO) 42.1 %; PLT - PLATELET COUNT 201 10^3/uL (130-450); RED BLOOD COUNT 4.03 10^6/uL (4.70-6.10); WHITE BLOOD COUNT 4.1 x10^3/uL (4.8-10.8)
[2019-09-22 12:32] LABS: ALBUMIN 4.9 g/dL (3.2-5.5); ALBUMIN/GLOBULIN RATIO 2.3 (1.0-2.2); ALKALINE PHOSPHATASE 53 IU/L (42-121); ALT ALANINE AMINOTRANSFERASE 27 IU/L (10-60); AST ASPARTATE AMINOTRANSFERASE 25 IU/L (10-42); BILIRUBIN,TOTAL 0.9 mg/dL (0.2-1.0); BUN - BLOOD UREA NITROGEN 18 mg/dL (6-20); CALCIUM 8.9 mg/dL (8.5-10.3); CARBON DIOXIDE - CO2 26 mmol/L (21-32); CHLORIDE 103 mmol/L (101-111); CHOL/HDL RATIO 6.5 (<5.0); CHOLESTEROL 265 mg/dL; CREATININE 0.7 mg/dL (0.6-1.2); GLUCOSE 148 mg/dL (70-100); HDL CHOLESTEROL 41 mg/dL; LDL CHOLESTEROL,CALCULATED 159 mg/dL; LDL/HDL RATIO 3.9 (<3.6); SODIUM 136 mmol/L (135-145); VLDL CHOLESTEROL 65 mg/dL
[2019-09-22 14:41] LABS: HB2 TOTAL 13.8 g/dL; HEMOGLOBIN A1C 0.75 g/dL; HEMOGLOBIN A1C % 7.1 % (4.6-6.2)
== END 2019-09-22 08:29 | disposition home or self-care (01) ==
LOC: LAB.N 08:28
PROVIDERS: ATTEND Physician Assistant Medical
DX: E11.9 Type 2 diabetes mellitus without complications (principal); E78.5 Hyperlipidemia, unspecified; I10 Essential (primary) hypertension
CPT/HCPCS: 36415; 80053; 80061; 83036; 83721; 84443; 85025

== ENCOUNTER 2022-05-12 10:29 | Outpatient (CLI) | payer OTHER ==
[2022-05-12 18:34] LABS: BASOPHILS % (AUTO) 0.3 %; EOSINOPHILS # (AUTO) 0.1 10^3/uL (0.0-0.7); EOSINOPHILS % (AUTO) 2.3 %; HGB - HEMOGLOBIN 10.4 g/dL (14.0-18.0); LYMPHOCYTES # (AUTO) 0.6 10^3/uL (1.5-3.5); LYMPHOCYTES % (AUTO) 18.2 %; MEAN CORPUSCULAR HEMOGLOBIN 29.6 pg (27.0-31.0); MEAN CORPUSCULAR HGB CONC 31.5 g/dL (32.0-36.0); MEAN PLATELET VOLUME 12.7 fL (7.4-11.4); MONOCYTES # (AUTO) 0.4 10^3/uL (0.0-1.0); NEUTROPHILS # (AUTO) 2.4 10^3/uL (1.5-6.6); NEUTROPHILS % (AUTO) 67.9 %; PLT - PLATELET COUNT 83 10^3/uL (130-450); RED BLOOD COUNT 3.51 10^6/uL (4.70-6.10); RED CELL DISTRIBUTION WIDTH 13.9 % (12.0-15.0); WHITE BLOOD COUNT 3.5 x10^3/uL (4.8-10.8)
[2022-05-12 18:41] LABS: ALBUMIN 3.9 g/dL (3.2-5.5); ALBUMIN/GLOBULIN RATIO 1.2 (1.0-2.2); BILIRUBIN,TOTAL 0.3 mg/dL (0.2-1.0); CALCIUM 8.6 mg/dL (8.5-10.3); CREATININE 0.8 mg/dL (0.6-1.2); POTASSIUM 4.3 mmol/L (3.5-5.0); TOTAL PROTEIN 7.1 g/dL (6.7-8.2)
[2022-05-12 18:51] LABS: THYROID STIMULATING HORMONE 1.19 uIU/mL (0.34-5.60)
[2022-05-12 18:56] LABS: % IRON SATURATION 6 % (20-50); CHOL/HDL RATIO 3.5 (<5.0); CHOLESTEROL 121 mg/dL; HDL CHOLESTEROL 35 mg/dL; IRON 18 ug/dL (45-182); LDL CHOLESTEROL,CALCULATED 71 mg/dL; TOTAL IRON BINDING CAPACITY 295 ug/dL (250-450); TRANSFERRIN 211 mg/dL (180-329); TRIGLYCERIDES 77 mg/dL; VLDL CHOLESTEROL 15 mg/dL
[2022-05-12 21:33] LABS: ESTIMATED AVERAGE GLUCOSE 154 mg/dL (70-100)
== END 2022-05-12 10:30 | disposition home or self-care (01) ==
LOC: LAB.N 10:29
PROVIDERS: ATTEND Physician Assistant
DX: D64.9 Anemia, unspecified (principal); R25.2 Cramp and spasm; E11.9 Type 2 diabetes mellitus without complications; E78.5 Hyperlipidemia, unspecified; Z79.899 Other long term (current) drug therapy
CPT/HCPCS: 36415; 80053; 80061; 82728; 83036; 83540; 83721; 83735; 84443; 84466; 85025

== ENCOUNTER 2023-02-05 14:49 | Outpatient (CLI) | payer OTHER ==
--- NOTE | 2023-02-05 20:38 | XRAY Report ---
PROCEDURE: Chest 2 View X-Ray INDICATIONS: WHEEZE-RHONCHI TECHNIQUE: 2 views of the chest were acquired. COMPARISON: Chest radiographs 116, CT abdomen/pelvis 09/24/2018 FINDINGS: Surgical changes and devices: None. Lungs and pleura: No pleural effusions or pneumothorax. Lungs are clear. Mediastinum: A large hiatal hernia is seen with air-fluid levels projecting over the lower mediastin um. Cardiac silhouette is within normal limits in size. Bones and chest wall: No suspicious bony lesions. Overlying soft tissues appear unremarkable. IMPRESSION: Large hiatal hernia, increased in size when compared to the prior exams. No acute pulmonary opacity i s seen. Reviewed by: Guero Deutsch MD on 02/05/2023 8:37 PM PDT Approved by: Guero Deutsch MD on 02/05/2023 8:37 PM PDT Station ID: [id number]
== END 2023-02-05 14:50 | disposition home or self-care (01) ==
LOC: DI 14:49
PROVIDERS: ATTEND Nurse Practitioner
DX: R06.2 Wheezing (principal); K44.9 Diaphragmatic hernia without obstruction or gangrene

== ENCOUNTER 2023-03-13 10:25 | Outpatient (CLI) | payer OTHER ==
[2023-03-13 17:54] LABS: BASOPHILS % (AUTO) 0.3 %; EOSINOPHILS # (AUTO) 0.1 10^3/uL (0.0-0.7); EOSINOPHILS % (AUTO) 2.2 %; HCT - HEMATOCRIT 32.7 % (42.0-52.0); HGB - HEMOGLOBIN 10.4 g/dL (14.0-18.0); LYMPHOCYTES # (AUTO) 0.6 10^3/uL (1.5-3.5); LYMPHOCYTES % (AUTO) 17.5 %; MEAN CORPUSCULAR HEMOGLOBIN 29.9 pg (27.0-31.0); MEAN CORPUSCULAR HGB CONC 31.8 g/dL (32.0-36.0); MEAN PLATELET VOLUME 12.9 fL (7.4-11.4); MONOCYTES # (AUTO) 0.4 10^3/uL (0.0-1.0); MONOCYTES % (AUTO) 11.6 %; NEUTROPHILS # (AUTO) 2.2 10^3/uL (1.5-6.6); NEUTROPHILS % (AUTO) 68.1 %; PLT - PLATELET COUNT 82 10^3/uL (130-450); RED BLOOD COUNT 3.48 10^6/uL (4.70-6.10); RED CELL DISTRIBUTION WIDTH 14.3 % (12.0-15.0); WHITE BLOOD COUNT 3.2 x10^3/uL (4.8-10.8)
[2023-03-13 18:14] LABS: ALBUMIN 3.8 g/dL (3.2-5.5); ALBUMIN/GLOBULIN RATIO 1.2 (1.0-2.2); ALKALINE PHOSPHATASE 955 IU/L (42-121); ALT ALANINE AMINOTRANSFERASE 34 IU/L (10-60); AST ASPARTATE AMINOTRANSFERASE 34 IU/L (10-42); BILIRUBIN,TOTAL 0.5 mg/dL (0.2-1.0); BUN - BLOOD UREA NITROGEN 8 mg/dL (6-20); CARBON DIOXIDE - CO2 29 mmol/L (21-32); CHLORIDE 97 mmol/L (101-111); CHOL/HDL RATIO 2.8 (<5.0); CHOLESTEROL 185 mg/dL; CREATININE 0.7 mg/dL (0.6-1.3); GFR - MDRD 119 (>89); GLUCOSE 406 mg/dL (74-104); HDL CHOLESTEROL 65 mg/dL; LDL CHOLESTEROL,CALCULATED 96 mg/dL; LDL/HDL RATIO 1.5 (<3.6); MAGNESIUM 1.9 mg/dL (1.7-2.3); SODIUM 129 mmol/L (135-145); TOTAL PROTEIN 6.9 g/dL (6.4-8.9); TRIGLYCERIDES 118 mg/dL (48-352); VLDL CHOLESTEROL 24 mg/dL
[2023-03-13 18:31] LABS: THYROID STIMULATING HORMONE 2.02 uIU/mL (0.34-5.60)
[2023-03-13 18:38] LABS: FERRITIN 129.4 ng/mL (23.9-336.2)
[2023-03-13 20:49] LABS: ESTIMATED AVERAGE GLUCOSE 252 mg/dL (70-100); HEMOGLOBIN A1c% 10.4 % (4.27-6.07)
[2023-03-14 08:42] LABS: % IRON SATURATION 14 % (20-50); IRON 40 ug/dL (50-212); TOTAL IRON BINDING CAPACITY 287 ug/dL (250-450); TRANSFERRIN 205 mg/dL (203-362)
== END 2023-03-13 10:26 | disposition home or self-care (01) ==
LOC: LAB.N 10:25
PROVIDERS: ATTEND Nurse Practitioner Family
DX: E11.9 Type 2 diabetes mellitus without complications (principal); R10.13 Epigastric pain; K86.89 Other specified diseases of pancreas; K44.9 Diaphragmatic hernia without obstruction or gangrene; R63.6 Underweight; R11.0 Nausea; Z79.4 Long term (current) use of insulin; Z12.5 Encounter for screening for malignant neoplasm of prostate
CPT/HCPCS: 36415; 80053; 80061; 82607; 82728; 82746; 83036; 83540; 83721; 83735; 84153; 84443; 84466; 85025

== ENCOUNTER 2023-04-18 08:57 | Outpatient (CLI) | payer OTHER ==
[2023-04-18 12:11] LABS: BASOPHILS % (AUTO) 0.3 %; EOSINOPHILS # (AUTO) 0.1 10^3/uL (0.0-0.7); EOSINOPHILS % (AUTO) 2.4 %; HCT - HEMATOCRIT 32.2 % (42.0-52.0); HGB - HEMOGLOBIN 10.2 g/dL (14.0-18.0); LYMPHOCYTES # (AUTO) 0.7 10^3/uL (1.5-3.5); LYMPHOCYTES % (AUTO) 17.6 %; MEAN CORPUSCULAR HEMOGLOBIN 29.6 pg (27.0-31.0); MEAN CORPUSCULAR HGB CONC 31.7 g/dL (32.0-36.0); MEAN CORPUSCULAR VOLUME 93.3 fL (80.0-94.0); MEAN PLATELET VOLUME 11.6 fL (7.4-11.4); MONOCYTES # (AUTO) 0.4 10^3/uL (0.0-1.0); MONOCYTES % (AUTO) 10.2 %; NEUTROPHILS # (AUTO) 2.6 10^3/uL (1.5-6.6); NEUTROPHILS % (AUTO) 69.5 %; PLT - PLATELET COUNT 112 10^3/uL (130-450); RED BLOOD COUNT 3.45 10^6/uL (4.70-6.10); WHITE BLOOD COUNT 3.7 x10^3/uL (4.8-10.8)
[2023-04-18 12:33] LABS: ALBUMIN 3.8 g/dL (3.2-5.5); ALBUMIN/GLOBULIN RATIO 1.3 (1.0-2.2); BILIRUBIN,TOTAL 0.9 mg/dL (0.2-1.0); CALCIUM 9.4 mg/dL (8.5-10.3); CREATININE 0.8 mg/dL (0.6-1.3); POTASSIUM 4.7 mmol/L (3.5-4.5); TOTAL PROTEIN 6.8 g/dL (6.4-8.9)
== END 2023-04-18 08:58 | disposition home or self-care (01) ==
LOC: LAB.N 08:57
PROVIDERS: ATTEND Nurse Practitioner Family
DX: E11.65 Type 2 diabetes mellitus with hyperglycemia (principal); E46 Unspecified protein-calorie malnutrition; D64.9 Anemia, unspecified; R74.8 Abnormal levels of other serum enzymes
CPT/HCPCS: 36415; 80053; 81599; 82977; 84075; 84080; 85025

== ENCOUNTER 2023-05-03 07:00 | Outpatient (CLI) | payer OTHER ==
--- NOTE | 2023-05-03 11:29 | Ultrasound Report ---
PROCEDURE: Abdomen Complete INDICATIONS: MASS OF PANCREAS. Epigastric pain. History of chronic pancreatitis status post Whipple procedure and cholecystectomy in 2020. TECHNIQUE: Real-time scanning was performed of the abdominal and retroperitoneal organs, with image documentatio n. COMPARISON: CT abdomen and pelvis on September 24, 2018. FINDINGS: Evaluation is limited secondary to bowel gas. Liver: Limited views of the liver secondary to bowel gas. No definite solid mass. Echogenic areas in the liver suggestive of pneumobilia. Gallbladder: Absent. Biliary ducts: Intrahepatic bile ducts are non-dilated. Extrahepatic bile duct caliber measures katya roximately 5.7 mm although not well seen. Normal is 6-7 mm or less in diameter, or 10 mm or less pos t-cholecystectomy. Pancreas: Not seen, likely partially surgically absent given history of Whipple. Spleen: Spleen is mildly enlarged and homogenous in echotexture measuring 15.8 cm. Splenule measurin g 2.8 x 2.4 x 2.1 cm as seen on prior CT. Kidneys: Kidneys are normal in size and echotexture. Right kidney measures 10.6 cm long; left kidne y measures 10.8 cm long. No hydronephrosis or nephrolithiasis. No solid masses. No complex renal cy stic lesions which require follow-up. Aorta: Not well seen secondary to bowel gas. Iliacs: Not well seen secondary to bowel gas. IVC: Intrahepatic inferior vena cava is patent. Miscellaneous: No free abdominal fluid. IMPRESSION: Evaluation is markedly limited secondary to bowel gas artifact. 1. Within these limitations, no definite sonographic finding to explain patient's epigastric pain. 2. Echogenic areas in the liver likely represent pneumobilia, expected given history of prior Whipple procedure. 3. Mild splenomegaly. Recommend a CT/MR abdomen and pelvis for further evaluation. Reviewed by: Hien Barlow MD on 05/03/2023 11:28 AM PDT Approved by: Hien Barlow MD on 05/03/2023 11:28 AM PDT Station ID: [id number]
== END 2023-05-03 20:00 | disposition home or self-care (01) ==
LOC: DI 07:00
PROVIDERS: ATTEND Nurse Practitioner Family
DX: R10.13 Epigastric pain (principal); R16.1 Splenomegaly, not elsewhere classified; E11.9 Type 2 diabetes mellitus without complications; R63.6 Underweight; K44.9 Diaphragmatic hernia without obstruction or gangrene; Z90.49 Acquired absence of other specified parts of digestive tract; Z98.890 Other specified postprocedural states

== ENCOUNTER 2023-05-30 12:27 | Outpatient (CLI) | payer OTHER ==
[2023-05-30 17:44] LABS: BASOPHILS % (AUTO) 0.4 %; EOSINOPHILS # (AUTO) 0.1 10^3/uL (0.0-0.7); EOSINOPHILS % (AUTO) 2.8 %; HCT - HEMATOCRIT 35.1 % (42.0-52.0); HGB - HEMOGLOBIN 11.4 g/dL (14.0-18.0); LYMPHOCYTES # (AUTO) 0.9 10^3/uL (1.5-3.5); LYMPHOCYTES % (AUTO) 18.4 %; MEAN CORPUSCULAR HEMOGLOBIN 29.8 pg (27.0-31.0); MEAN CORPUSCULAR HGB CONC 32.5 g/dL (32.0-36.0); MEAN CORPUSCULAR VOLUME 91.6 fL (80.0-94.0); MEAN PLATELET VOLUME 13.3 fL (7.4-11.4); MONOCYTES # (AUTO) 0.5 10^3/uL (0.0-1.0); MONOCYTES % (AUTO) 11.3 %; NEUTROPHILS # (AUTO) 3.1 10^3/uL (1.5-6.6); NEUTROPHILS % (AUTO) 66.9 %; PLT - PLATELET COUNT 120 10^3/uL (130-450); RED BLOOD COUNT 3.83 10^6/uL (4.70-6.10); RED CELL DISTRIBUTION WIDTH 13.3 % (12.0-15.0); WHITE BLOOD COUNT 4.7 x10^3/uL (4.8-10.8)
[2023-05-30 18:50] LABS: ALBUMIN/GLOBULIN RATIO 1.2 (1.0-2.2); BILIRUBIN,TOTAL 0.9 mg/dL (0.2-1.0); CALCIUM 9.6 mg/dL (8.5-10.3); CREATININE 0.8 mg/dL (0.6-1.3); POTASSIUM 4.8 mmol/L (3.5-4.5); TOTAL PROTEIN 7.3 g/dL (6.4-8.9)
[2023-05-30 18:57] LABS: CREATININE,URINE 161.5 mg/dL; MICROALBUM/CREATININE RATIO,UR 9.3 ug/mg (<30.0); MICROALBUMIN,URINE 1.5 mg/dL
[2023-05-30 19:06] LABS: THYROID STIMULATING HORMONE 2.7 uIU/mL (0.34-5.60)
[2023-05-30 19:26] LABS: ESTIMATED AVERAGE GLUCOSE 189 mg/dL (70-100); HEMOGLOBIN A1c% 8.2 % (4.27-6.07)
[2023-05-31 20:08] LABS: HCV AB Non Reactive (Non Reactive); HIV SCREEN 4TH GENERATION Non Reactive (Non Reactive)
== END 2023-05-30 12:28 | disposition home or self-care (01) ==
LOC: LAB.N 12:27
PROVIDERS: ATTEND Nurse Practitioner Family
DX: E11.65 Type 2 diabetes mellitus with hyperglycemia (principal); R74.8 Abnormal levels of other serum enzymes; R63.6 Underweight; R10.13 Epigastric pain; K86.0 Alcohol-induced chronic pancreatitis; K21.9 Gastro-esophageal reflux disease without esophagitis
CPT/HCPCS: 36415; 80053; 82043; 82570; 83036; 84443; 85025; 86803; 87389

== ENCOUNTER 2023-06-07 02:12 | Outpatient (CLI) | payer OTHER | END 2023-06-07 02:13 | disposition critical access hospital (66) | LOC: EMS 02:12 | DX: E11.649 Type 2 diabetes mellitus with hypoglycemia without coma (principal); R05.9 Cough, unspecified; R53.1 Weakness; R53.83 Other fatigue; R09.3 Abnormal sputum; Z79.4 Long term (current) use of insulin | CPT/HCPCS: A0425; A0427 ==

== ENCOUNTER 2023-06-07 02:31 | Inpatient (IN) | payer OTHER ==
[2023-06-07] MEDS ORDERED: SODIUM CHLORIDE 0.9% 1,000 ML IV STA ×2 (02:36→11:07)
[2023-06-07] MEDS ORDERED: DEXTROSE 5%-0.9% NACL 1,000 ML IV STA ×2 (02:38→04:39)
[2023-06-07] MEDS ORDERED: ONDANSETRON 4 MG/2 ML VIAL IVP STA (02:41)
--- NOTE | 2023-06-07 02:41 | ED Physician Documentation ---
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 patient has had decreased appetite, nausea and productive cough X 1 week. endorses weight loss and failure to thrive X several months with recurrent hypoglycemic episodes. denies cp, soa. does endorse upper abdominal discomfort. denies urinary sx. PD PAST MEDICAL HISTORY - Past Medical History Cardiovascular: None Respiratory: None Neuro: None Endocrine/Autoimmune: Type 1 diabetes GI: GERD, Hiatal hernia, Pancreatitis : Nocturia HEENT: None Psych: Depression Musculoskeletal: None Derm: None - Past Surgical History Past Surgical History: Yes Derm: Other - Present Medications Home Medications: Ambulatory Orders Medication Instructions Recorded Confirmed Lipase/Protease/Amylase [Danyel Barifeld 1 each PO TIDWM #90 capsule. 03/25/18 08/15/18 24,000 Units Capsule] Atorvastatin [Lipitor] 10 mg PO DAILY 06/06/18 08/15/18 Omeprazole 20 mg PO DAILY 06/06/18 08/15/18 buPROPion [Wellbutrin Sr] 300 mg PO DAILY 06/06/18 08/15/18 Insulin Glargine [Lantus Solostar] 14 unit SQ DAILY PM 08/15/18 08/15/18 - Allergies Allergies/Adverse Reactions: Allergies Allergy/AdvReac Type Severity Reaction Status Date / Time shellfish derived Allergy Respiratory Verified 06/07/23 02:41 - Social History Does the pt smoke?: Yes Smoking Status: Current every day smoker Does the pt drink ETOH?: No Does the pt have substance abuse?: No - Immunizations Immunizations are current?: Yes - POLST Patient has POLST: No POLST Status: Full Code (However he only wants CPR. He does not want intubation.) PD ED PE NORMAL - Vitals Vital signs reviewed: Yes - General General: Alert and oriented X 3, No acute distress, Well developed/nourished, Other (thin appearing) - HEENT HEENT: Atraumatic, PERRL, EOMI - Neck Neck: Supple, no meningeal sign - Cardiac Cardiac: RRR - Respiratory Respiratory: No respiratory distress, Clear bilaterally - Abdomen Abdomen: Non tender, Non distended - Back Back: No CVA TTP - Derm Derm: Normal color Results - Vitals Vitals: Vital Signs - 24 hr 06/07/23 06/07/23 06/07/23 02:30 02:36 03:06 Temperature 36.4 C L Heart Rate 59 L 46 L 48 L Respiratory 20 12 12 Rate Blood Pressure 98/66 98/66 83/55 L O2 Saturation 98 95 95 06/07/23 06/07/23 06/07/23 04:00 04:30 05:00 Temperature Heart Rate 44 L 51 L 62 Respiratory 13 14 15 Rate Blood Pressure 85/55 L 78/51 L 75/48 L O2 Saturation 96 93 06/07/23 06/07/23 05:30 06:00 Temperature Heart Rate 55 L 52 L Respiratory 12 10 L Rate Blood Pressure 92/65 98/67 O2 Saturation 97 97 Oxygen O2 Source Room air - Labs Labs: Laboratory Tests 06/07/23 06/07/23 06/07/23 02:36 02:44 02:44 WBC 7.5 RBC 3.63 L Hgb 11.3 L Hct 33.5 L MCV 92.3 MCH 31.1 H MCHC 33.7 RDW 13.5 Plt Count 79 L MPV 10.6 Neut # (Auto) 6.7 H Lymph # (Auto) 0.3 L [place] # (Auto) 0.5 Eos # (Auto) 0.0 Baso # (Auto) 0.0 Absolute Nucleated RBC 0.00 Nucleated RBC % 0.0 VBG pH VBG pCO2 VBG pO2 VBG HCO3 VBG Total CO2 VBG O2 Saturation VBG Base Excess Sodium 131 L Potassium 3.4 L Chloride 97 L Carbon Dioxide 25 Anion Gap 9.0 BUN 18 Creatinine 0.7 Estimated GFR (MDRD) 119 Glucose 107 H POC Whole Bld Glucose 107 H Lactic Acid Calcium 9.2 Total Bilirubin 1.5 H AST 35 ALT 42 Alkaline Phosphatase 623 H Total Protein 6.9 Albumin 3.7 Globulin 3.2 Albumin/Globulin Ratio 1.2 Lipase 12 TSH Urine Acetest Cancelled Serum Ketones NEGATIVE 06/07/23 06/07/23 06/07/23 02:44 02:44 02:44 WBC RBC Hgb Hct MCV MCH MCHC RDW Plt Count MPV Neut # (Auto) Lymph # (Auto) [place] # (Auto) Eos # (Auto) Baso # (Auto) Absolute Nucleated RBC Nucleated RBC % VBG pH 7.482 H VBG pCO2 34.8 L VBG pO2 84.7 H VBG HCO3 25.5 VBG Total CO2 26.5 VBG O2 Saturation 96.5 H VBG Base Excess 2.3 H Sodium Potassium Chloride Carbon Dioxide Anion Gap BUN Creatinine Estimated GFR (MDRD) Glucose POC Whole Bld Glucose Lactic Acid 1.0 Calcium Total Bilirubin AST ALT Alkaline Phosphatase Total Protein Albumin Globulin Albumin/Globulin Ratio Lipase TSH 0.65 Urine Acetest Serum Ketones 06/07/23 05:08 WBC RBC Hgb Hct MCV MCH MCHC RDW Plt Count MPV Neut # (Auto) Lymph # (Auto) [place] # (Auto) Eos # (Auto) Baso # (Auto) Absolute Nucleated RBC Nucleated RBC % VBG pH VBG pCO2 VBG pO2 VBG HCO3 VBG Total CO2 VBG O2 Saturation VBG Base Excess Sodium Potassium Chloride Carbon Dioxide Anion Gap BUN Creatinine Estimated GFR (MDRD) Glucose POC Whole Bld Glucose 429 H Lactic Acid Calcium Total Bilirubin AST ALT Alkaline Phosphatase Total Protein Albumin Globulin Albumin/Globulin Ratio Lipase TSH Urine Acetest Serum Ketones Procedures - Central Line - Major Central Line Preparation: Consent Obtained, Time out completed, Ultrasound used, Sterile prep and drape Central line location: Right IJ Central line type: Triple lumen Central line aftercare: Chlorhexidine disc placed, Secured, Placement confirmed, No pneumothorax, No complications, Bundle checklist complete, Pt tolerated well PD Medical Decision Making - ED course ED course: 53yM presents s/p hypoglycemic episode and protracted uri illness X 1 week with gen malaise/nausea. symptom management provided with improvement in nausea s/p IV zofran and fluids. labwork ordered as well as cxr. Patient has symptomatic bradycardia, hypotensive, dizzy. 0.5 mg IV atropine administered with improvement in HR from low 40s to high 50s. still hypotensive therefore will set up central line for levophed drip. Though his lactate was normal we will start antibiotics and draw blood cultures given this could be septic shock. DDX includes sepsis, adrenal insufficiency, hypothyroidism. TSH wnl. will provide 10mg decadron to address potential adrenal insufficiency. no beds available. plan to endorse to incoming daytime ED MD at 7am shift change. Departure - Departure Clinical Impression: Nausea, Hypoglycemia, Bradycardia, Hypotension, Weight loss, Poor appetite Condition: Fair Instructions: ED Diabetes Hypoglycemia Oral Agent Comments: You were seen in the emergency department for low blood sugar. Please follow-up with your primary care provider and return to the emergency department if you have any new or worsening symptoms or other concerns. Forms: PCP List
[2023-06-07] MEDS ORDERED: FAMOTIDINE 20 MG/2 ML VIAL IVP STA (02:42)
[2023-06-07 02:48] LABS: VBG PCO2 34.8 mmHg (41-51); VBG PH 7.482 (7.31-7.41)
[2023-06-07 02:49] LABS: VBG BASE EXCESS 2.3 mmol/L (-2 - +2); VBG HCO3 25.5 mmol/L (23-28); VBG OXYGEN SATURATION 96.5 % (60-80); VBG PO2 84.7 mmHg (25-47); VBG TOTAL CO2 26.5 mmol/L (24-29)
[2023-06-07 02:51] LABS: BASOPHILS % (AUTO) 0.4 %; HCT - HEMATOCRIT 33.5 % (42.0-52.0); HGB - HEMOGLOBIN 11.3 g/dL (14.0-18.0); LYMPHOCYTES # (AUTO) 0.3 10^3/uL (1.5-3.5); LYMPHOCYTES % (AUTO) 4.5 %; MEAN CORPUSCULAR HEMOGLOBIN 31.1 pg (27.0-31.0); MEAN CORPUSCULAR HGB CONC 33.7 g/dL (32.0-36.0); MEAN CORPUSCULAR VOLUME 92.3 fL (80.0-94.0); MEAN PLATELET VOLUME 10.6 fL (7.4-11.4); MONOCYTES # (AUTO) 0.5 10^3/uL (0.0-1.0); MONOCYTES % (AUTO) 6.4 %; NEUTROPHILS # (AUTO) 6.7 10^3/uL (1.5-6.6); NEUTROPHILS % (AUTO) 88.4 %; RED BLOOD COUNT 3.63 10^6/uL (4.70-6.10); RED CELL DISTRIBUTION WIDTH 13.5 % (12.0-15.0); WHITE BLOOD COUNT 7.5 x10^3/uL (4.8-10.8)
[2023-06-07 02:54] LABS: PLT - PLATELET COUNT 79 10^3/uL (130-450)
[2023-06-07 02:58] LABS: KETONES, SERUM (ACETEST) NEGATIVE (NEGATIVE)
[2023-06-07 03:02] LABS: ALBUMIN 3.7 g/dL (3.2-5.5); ALBUMIN/GLOBULIN RATIO 1.2 (1.0-2.2); ALKALINE PHOSPHATASE 623 IU/L (42-121); ALT ALANINE AMINOTRANSFERASE 42 IU/L (10-60); AST ASPARTATE AMINOTRANSFERASE 35 IU/L (10-42); BILIRUBIN,TOTAL 1.5 mg/dL (0.2-1.0); BUN - BLOOD UREA NITROGEN 18 mg/dL (6-20); CALCIUM 9.2 mg/dL (8.5-10.3); CARBON DIOXIDE - CO2 25 mmol/L (21-32); CHLORIDE 97 mmol/L (101-111); CREATININE 0.7 mg/dL (0.6-1.3); GFR - MDRD 119 (>89); GLUCOSE 107 mg/dL (74-104); LIPASE 12 U/L (11-82); POTASSIUM 3.4 mmol/L (3.5-4.5); SODIUM 131 mmol/L (135-145); TOTAL PROTEIN 6.9 g/dL (6.4-8.9)
[2023-06-07] MEDS ORDERED: ATROPINE 0.4 MG/ML VIAL IVP ONE (04:26)
[2023-06-07] MEDS ORDERED: VANCOMYCIN INJ 1.5 GM in SODIUM CHLORIDE 0.9% 500 ML IV STA (05:15)
[2023-06-07] MEDS ORDERED: PIPERACILLIN/TAZOBACTAM 3.375 GM in SODIUM CHLORIDE 0.9% MINIBAG 100 ML IV STA ×2 (05:16→11:06)
[2023-06-07] MEDS ORDERED: VANCOMYCIN 1 GM VIAL ONE (05:34)
[2023-06-07] MEDS ORDERED: NOREPINEPHRINE/0.9 % NS 8 MG/250 ML BAG IV SCH ×2 (06:00→14:00)
[2023-06-07] MEDS ORDERED: DEXAMETHASONE 10 MG/ML VIAL IVP STA (06:33)
[2023-06-07] MEDS ORDERED: ATROPINE ABBOJECT 0.5 MG/5 ML SYRINGE IVP STA (07:46)
[2023-06-07] MEDS ORDERED: SODIUM CHLORIDE 0.9% 500 ML IV STA (07:47)
--- NOTE | 2023-06-07 08:00 | XRAY Report ---
PROCEDURE: Chest 2 View X-Ray INDICATIONS: cough X 1 week TECHNIQUE: 2 views of the chest were acquired. COMPARISON: Chest x-ray, 02/05/2023. FINDINGS: Surgical changes and devices: None. Lungs and pleura: Bilateral perihilar infiltrates suspicious for perihilar pneumonia. No pleural eff usions or pneumothorax. Mediastinum: Mediastinal contours appear normal. Heart size is normal. Large hiatal hernia. Bones and chest wall: No suspicious bony lesions. Overlying soft tissues appear unremarkable. IMPRESSION: 1. Bilateral perihilar pneumonia. 2. Large hiatal hernia.. Findings are concordant with preliminary interpretation provided by [facility]. Reviewed by: Cosmo Stokes MD on 06/07/2023 7:58 AM PST Approved by: Cosmo Stokes MD on 06/07/2023 7:58 AM PST Station ID: [id number]
--- NOTE | 2023-06-07 08:06 | XRAY Report ---
PROCEDURE: Chest for Line Placement INDICATIONS: central line TECHNIQUE: One view of the chest was acquired. COMPARISON: Chest x-ray, 06/07/2023. FINDINGS: Surgical changes and devices: Interval placement of right IJ central line with the tip projecting to the area of azygous vein, probably into the azygous vein. Lungs and pleura: Bilateral perihilar infiltrates suspicious for pneumonia. No pleural effusions or pneumothorax. Mediastinum: Mediastinal contours appear normal. Heart size is normal. There is a large hiatal nicole ia. Bones and chest wall: No suspicious bony lesions. Overlying soft tissues appear unremarkable. IMPRESSION: 1. Right IJ central line tip projecting to the area of azygous, probably into the azygos vein. 2. Bilateral perihilar infiltrates suspicious for pneumonia. 2. Large hiatal hernia. Findings are concordant with preliminary interpretation provided by [facility]. Reviewed by: Cosmo Stokes MD on 06/07/2023 8:05 AM PST Approved by: Cosmo Stokes MD on 06/07/2023 8:05 AM PST Station ID: [id number]
[2023-06-07 08:50] LABS: TROPONIN I HIGH SENSITIVITY 10.4 ng/L (2.3-19.7)
[2023-06-07 08:51] LABS: MAGNESIUM 1.7 mg/dL (1.7-2.3)
[2023-06-07] MEDS ORDERED: iohexoL-300 100 ML VIAL IVP ONE (08:52)
--- NOTE | 2023-06-07 09:27 | CT Report ---
PROCEDURE: HEAD WO INDICATIONS: altered mentation. TECHNIQUE: Noncontrast 4.5 mm thick angled axial sections acquired from the foramen magnum to the vertex. For r adiation dose reduction, the following was used: automated exposure control, adjustment of mA and/or kV according to patient size. COMPARISON: None. FINDINGS: Image quality: Excellent. CSF spaces: Basal cisterns are patent. No extra-axial fluid collections. Ventricles are normal in size and shape. Brain: No midline shift. No intracranial masses or hemorrhage. Jensen-white matter interface is norm al. Skull and face: Calvarium and visualized facial bones are intact, without suspicious lesions. Sinuses: Visualized sinuses and mastoids are clear. IMPRESSION: No acute intracranial pathology. Reviewed by: Constantin Dodd MD on 06/07/2023 9:26 AM [facility] Approved by: Constantin Dodd MD on 06/07/2023 9:26 AM [facility] Station ID: [id number]
--- NOTE | 2023-06-07 09:49 | CT Report ---
PROCEDURE: CHEST W INDICATIONS: low BP/glucose, some chest/abd pain CONTRAST: 100ml omni 300 TECHNIQUE: After the administration of intravenous contrast, 1 mm axial images were acquired from the pulmonary apices through the posterior costophrenic angles. Axial 5 mm soft tissue kernel reconstructions were performed as well as 8 mm axial MIP and coronal and sagittal 5 mm reformations. For radiation dose reduction, the following was used: automated exposure control, adjustment of mA and/or kV according to patient size. COMPARISON: CT abdomen and pelvis from today, CT abdomen and pelvis dated 09/24/2018. FINDINGS: Image quality: Excellent. Lungs and pleura: Bibasilar pneumonia is not present. Findings suggest possible aspiration. There is also subtle patchy consolidation present in the right upper lobe. No pleural effusions. No pneumotho rax. No suspicious pulmonary nodules which require follow up. Mediastinum: Heart size is normal. No pericardial effusion. No large vessel abnormality. No mediastin al adenopathy by size criteria. Again noted is a large hiatal hernia containing stomach. The stomach appears diffusely edematous. Esophagus is somewhat dilated and contains fluid. Chest wall and lower neck: Thyroid is unremarkable. No axillary or supraclavicular adenopathy by size . Bones: No aggressive osseous abnormality. Upper Abdomen: Interval development of portal vein thrombosis with cavernous transformation and devel opment of upper abdominal varicosities, including a varicosity coursing towards the stomach. Chronic pancreatitis. Interval cholecystectomy. Air is present throughout the biliary tree. IMPRESSION: 1. Chronic large hiatal hernia containing stomach. Development of diffuse edematous change involving the stomach. 2. Probable bibasilar aspiration pneumonia, with patchy pneumonia also present in the right upper lob e. 3. Interval cholecystectomy, air present in the biliary tree, typically not pathologic. 4. 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 Reviewed by: Constantin Dodd MD on 06/07/2023 9:47 AM PST Approved by: Constantin Dodd MD on 06/07/2023 9:47 AM PST Station ID: [id number]
--- NOTE | 2023-06-07 09:57 | CT Report ---
PROCEDURE: ABDOMEN/PELVIS W INDICATIONS: low BP/glucose, lower abd tender CONTRAST: 100ml omni 300 TECHNIQUE: After the administration of intravenous contrast, 5 mm thick sections acquired from the diaphragms to the symphysis. 5 mm thick coronal and sagittal reformats were acquired. For radiation dose reducti on, the following was used: automated exposure control, adjustment of mA and/or kV according to kendal ent size. COMPARISON: CT chest from today, CT abdomen and pelvis dated 09/24/2018 FINDINGS: Image quality: Excellent. Lung bases and heart: Probable bibasilar aspiration pneumonia. Very large hiatal hernia containing st omach. Development of diffuse edematous change in the stomach. Liver: Post cholecystectomy, interval development of diffuse air present in the biliary tree, a commo n finding. No liver mass or abscess Gallbladder and biliary tree: Interval cholecystectomy with air present in the biliary tree. Mild int rahepatic biliary ductal dilatation, improved. Spleen: Mild splenomegaly. Spleen measures 13.7 cm. Pancreas: Extensive changes of chronic pancreatitis. Adrenals: No adrenal nodule. Kidneys and ureters: No hydronephrosis. No renal cystic lesion which requires follow up. No solid mas s. Bowel and peritoneum: Moderately large fecal load. There is edema and thickening in the wall of the c ecum and right colon and proximal transverse colon. Mild pelvic ascites. Lymph nodes: No central or retroperitoneal adenopathy. 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 PELVIS Reproductive organs: Unremarkable. Bladder: Impressive bladder distention. Pelvic lymph nodes: No pelvic adenopathy by size criteria. Bones: No aggressive osseous abnormality. Other: No significant ventral or inguinal hernia. IMPRESSION: 1. Bibasilar pneumonia. Suspect aspiration. 2. Large hiatal hernia containing most of the stomach, which has become diffusely edematous. 3. Interval cholecystectomy with air present in the biliary tree, a common finding. 4. Interval main portal vein occlusion with cavernous transformation and development of varicosities, including a varicosity extending to the stomach. 5. Mild splenomegaly. 6. Chronic pancreatitis. 7. Edematous change in the right colon, cecum, and proximal transverse colon. Findings may potentiall y be indicative of focal colitis. Consider infectious versus inflammatory etiologies. Also possible i s edematous change secondary to hepatic dysfunction. 8. Impressive distention of the bladder. Comment: Consider upper endoscopy to evaluate the stomach. Reviewed by: Constantin Dodd MD on 06/07/2023 9:56 AM [facility] Approved by: Constantin Dodd MD on 06/07/2023 9:56 AM [facility] Station ID: [id number]
[2023-06-07 11:34] LABS: RED CELL DISTRIBUTION WIDTH 13.3 % (12.0-15.0)
[2023-06-07] MEDS ORDERED: ONDANSETRON ODT 4 MG TABLET TL PRN (11:40)
[2023-06-07] MEDS ORDERED: ACETAMINOPHEN 325 MG TABLET PO PRN (11:40)
[2023-06-07] MEDS ORDERED: ONDANSETRON 4 MG/2 ML VIAL IVP PRN (11:40)
[2023-06-07 11:41] LABS: BASOPHILS % (AUTO) 0.2 %; EOSINOPHILS % (AUTO) 5.6 %; HCT - HEMATOCRIT 33.1 % (42.0-52.0); HGB - HEMOGLOBIN 11.1 g/dL (14.0-18.0); LYMPHOCYTES % (AUTO) 3.2 %; MEAN CORPUSCULAR HEMOGLOBIN 30.6 pg (27.0-31.0); MEAN CORPUSCULAR HGB CONC 33.5 g/dL (32.0-36.0); MEAN CORPUSCULAR VOLUME 91.2 fL (80.0-94.0); MEAN PLATELET VOLUME 11.1 fL (7.4-11.4); MONOCYTES % (AUTO) 2.5 %; NEUTROPHILS % (AUTO) 88.1 %; PLT - PLATELET COUNT 117 10^3/uL (130-450); RED BLOOD COUNT 3.63 10^6/uL (4.70-6.10); WHITE BLOOD COUNT 12.2 x10^3/uL (4.8-10.8)
--- NOTE | 2023-06-07 11:43 | ED Physician Documentation ---
ED Addendum - Addendum Addendum: 06/07/23 11:39 The patient has had still adequate blood pressure this morning after change of shift. He did have an episode of his heart rate going down to approximately 38- 45. His blood pressure during that time was slightly lower at 98/50. We did restart the norepinephrine at a low dose and gave 0.5 mg of atropine with improvement of his heart rate to 70s and his blood pressure above 100. His blood sugar is remaining adequate with check at that time of 247. We are maintaining IV fluid. Evaluation at that time did seem to have some tenderness in the lower abdomen. I ordered CT of the head chest and abdomen. The results of these subsequently came back showing a normal head CT. Chest CT scan showed lower lobe infiltrates that could be aspiration or pneumonia. There was also some segment of colitis from the transverse and descending down to the sigmoid colon. I talked with Dr. Lanza who is the hospitalist and she did ask for general surgery consult. I talked with Dr. Elias who will evaluate the patient's images and come and see the patient. Concern would be for surgical or ischemic bowel. The pH was normal on a venous blood gas earlier. I will recheck a lactate and white count again at this point. We are doing frequent blood sugar checks at every hour. The patient remains on some IV fluids and low-dose Levophed for blood pressure support. Where concern for sepsis obviously with the above findings. Other considerations would be hypoadrenalism spurred by acute infection. The patient will disposition: The patient will be admitted to the hospital ICU Diagnoses: 1. Acute altered mental status 2. Hypoglycemia 3. Persistent hypotension 4. Acute colitis 5. Pneumonia infiltrates 6. History of diabetes Critical care addendum: The patient was attended to with vasoactive medications including norepinephrine and atropine and was hypotensive. Attention was maintained towards sepsis. Recurrent Reha evaluations of blood pressure and lab testing. Critical care time 60 minutes
--- NOTE | 2023-06-07 11:44 | HISTORY & PHYSICAL EXAMINATION ---
History - Past Medical History Cardiovascular: reports: None Respiratory: reports: None Neuro: reports: None Endocrine/Autoimmune: reports: Type 1 diabetes GI: reports: GERD, Hiatal hernia, Pancreatitis : reports: Nocturia HEENT: reports: None Psych: reports: Depression Musculoskeletal: reports: None Derm: reports: None MRSA Hx?: No - Past Surgical History Derm: reports: Other - Family & Social History Family History Comment/Other: Dad is in his 70s and has no major medical illnesses. Mom in her 50s of suicide. One brother of a suicide according to corners report. One brother is healthy. No children Social History Notes: He was born and raised in [place]. Moved to [place] and lives there with his first in [facility] in [place]. Most of his hospitalizations for pancreatitis were in [place]. He is currently to his second . He moved would [facility] in 2013 when he was dating his girlfriend. She is now his . They came to see her parents, like at some much they state. 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 Smokes 1 pack per day. Denies any problems with heroin cocaine and LSD speed - Substance History Use: Uses substance without health or social issues: Tobacco - POLST Patient has POLST: No POLST Status: Full Code (However he only wants CPR. He does not want intubation.) Meds/Allgy - Home Medications Home Medications: Ambulatory Orders Medication Instructions Recorded Confirmed Omeprazole 20 mg PO DAILY 06/06/18 06/07/23 buPROPion [Wellbutrin Sr] 300 mg PO DAILY 06/06/18 06/07/23 Insulin Degludec 40 unit SUBQ HS 06/07/23 06/07/23 Methadone [Methadone IntensoL] 120 mg PO DAILY 06/07/23 06/07/23 - Allergies Allergies/Adverse Reactions: Allergies Allergy/AdvReac Type Severity Reaction Status Date / Time shellfish derived Allergy Respiratory Verified 06/07/23 02:41 Exam - Vital Signs Vital Signs: Vital Signs x48h Pulse Resp BP Pulse Ox 06/07/23 11:30 46 L 20 129/70 98 06/07/23 11:23 45 L 15 85/51 L 98 06/07/23 11:00 51 L 50 H 100/60 96 06/07/23 10:30 46 L 15 134/59 H 97 06/07/23 10:00 51 L 16 131/78 H 98 06/07/23 09:30 59 L 16 121/80 98 06/07/23 09:25 56 L 18 110/69 98 06/07/23 09:00 65 21 157/89 H 98 06/07/23 08:30 77 16 135/79 H 98 06/07/23 08:00 73 15 136/78 H 97 06/07/23 07:48 78 15 183/105 H 98 06/07/23 07:30 34 L 15 77/56 L 98 06/07/23 07:06 49 L 16 82/54 L 98 06/07/23 06:39 97 14 91/60 98 06/07/23 06:00 52 L 10 L 98/67 97 06/07/23 05:30 55 L 12 92/65 97 06/07/23 05:00 62 15 75/48 L 06/07/23 04:30 51 L 14 78/51 L 93 06/07/23 04:00 44 L 13 85/55 L 96 Conclusion/Plan - Lab Results Fish Bones: 06/07/23 02:44 06/07/23 02:44
[2023-06-07 11:45] LABS: ABNORMAL LYMPHS % (MANUAL) 0 %; BAND NEUTROPHILS % (MANUAL) 0 %
[2023-06-07 12:07] LABS: LYMPHOCYTES # (MANUAL) 0.4 10^3/uL (1.5-3.5); LYMPHOCYTES % (MANUAL) 3 %; MONOCYTES # (MANUAL) 0.9 10^3/uL (0.0-1.0)
[2023-06-07 12:08] LABS: DIFFERENTIAL COMMENT MANUAL DIFFERENTIAL; PLATELET ESTIMATE, MANUAL DECREASED (<130,000) (NORMAL); PLATELET MORPHOLOGY NORMAL APPEARANCE (NORMAL); RBC MORPHOLOGY (MULTIPLE) NORMAL APPEARANCE (NORMAL); WBC MORPHOLOGY (MULTIPLE) NORMAL APPEARANCE (NORMAL)
--- NOTE | 2023-06-07 12:50 | CONSULTATION NOTE ---
Surgery Consult - Admit Date Hospital Admission Date: 06/07/23 - Consult Date Consult Date: 06/07/23 Requesting Provider: Bo - Chief Complaint Chief Complaint: RE: Colitis - Home Meds/Allergies Home Medications: Patient History Medication Instructions Recorded Confirmed Omeprazole 20 mg PO DAILY 06/06/18 06/07/23 buPROPion [Wellbutrin Sr] 300 mg PO DAILY 06/06/18 06/07/23 Insulin Degludec 40 unit SUBQ HS 06/07/23 06/07/23 Methadone [Methadone IntensoL] 120 mg PO DAILY 06/07/23 06/07/23 Allergies/Adverse Reactions: Allergies Allergy/AdvReac Type Severity Reaction Status Date / Time shellfish derived Allergy Respiratory Verified 06/07/23 02:41 - Vital Signs Vital Signs: Last Vital Signs Temp 97.5 F L 06/07/23 02:30 Pulse 50 L 06/07/23 12:30 Resp 16 06/07/23 12:30 BP 124/80 06/07/23 12:30 Pulse Ox 97 06/07/23 12:30 O2 Flow Rate Intake & Output: Intake & Output 06/04/23 06/05/23 06/06/23 06/07/23 23:59 23:59 23:59 23:59 Intake Total 3354.563 Balance 3354.563 - Lab Results Result Diagrams: 06/07/23 11:20 06/07/23 02:44 - Consultation Note Consultation Note: General Surgery Consultation Note Assessment: 1) Wall thickening of right colon on CT scan. No abdominal symptoms. No diarrhea. May be related to transient hypotension and use of vasopressors 2) Intra-thoracic stomach - may be responsible for # 5. 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 In the course of his workup, a CT scan was performed and identified bilateral pneumonia and wall thickening of the right colon suspicious for colitis. I was asked to evaluate the patient for the finding of colitis. Prasad denies rectal bleeding or diarrhea. He has no abdominal and no chest pain. He has chronic weight loss and denies difficulty eating foods but he tells me he usually eats only yogurt. He denies chest or abdominal pain at the time of my evaluation. Past Surgical History Partial pancreatectomy Current Medications See "Medication" section Allergies See "Allergy" section ROS Pertinent positives Fatigue and weakness on presentation. No abdominal or chest pain. Belching and burping after eating is normal for him All other reviewed systems negative Physical Examination Vital Signs: See "Vital Signs" section BMI: 19 GENERAL APPEARANCE: Normal development, thin body habitus, normal grooming PSYCHIATRIC: AAO; Comfortable EYES: Pupils equal, round and reactive to light, sclera anicteric EARS, NOSE, MOUTH, THROAT: Hearing normal, Oral mucous membranes moist and without lesions; NECK: No crepitus, lymphadenopathy, or thyromegaly LUNGS: Clear to auscultation without wheezing; No use of accessory muscles to breathe CARDIOVASCULAR: Heart-NSR without murmurs; Palpable carotid arteries - no bruits; Pedal pulses palpable; Peripheral edema absent ABD: Soft, scaphoid, no palpable masses, no tenderness, + BS LYMPHATIC: Neck, Axillae, Groin palpable adenopathy EXTREMITIES: No clubbing, cyanosis, infections SKIN: Anicteric; No rashes, lesions, Ulcerations Labs See "Labs" section Antibiotics: Zosyn, Vancomycin Imaging CT Chest/Abdomen; CXR - see reports All images were personally reviewed by me for this encounter. Rodolfo Dudley MD, [facility] General Surgery Service [phone]
[2023-06-07] MEDS: DEXTROSE 5%-0.9% NACL 1,000 ML IV SCH (13:58)
--- NOTE | 2023-06-07 14:03 | HISTORY & PHYSICAL EXAMINATION ---
Chief Complaint - Chief Complaint Chief Complaint: Low blood glucose History of Present Illness - Admitted From Admitted From:: Home via EMS - History Obtained From Records Reviewed: [facility] History obtained from: Dr. Wade, the patient and his Exam Limitations: None - History of Present Illness HPI Comment/Other: This is a gentleman who has chronic pancreatitis from chronic alcohol abuse. He moved to [facility] in 2013 and subsequently had many admissions to our hospital. At one estimate, by 2018, he had about 20 admissions to various hospitals since 2006. He last stopped drinking in 2015 after an admission to our hospital. His chronic pain from chronic pancreatitis began being treated with methadone after 2015. He is currently with the [facility] and gets 150 mg of metahdone a day. Unfortunately the chronic pancreatitis has resulted in type 2 diabetes mellitus or a diabetes mellitus 1.5. For short time he was seen by our diabetic education clinic. That was in 2018. He moved to [place] for 2 years for work. While there he had a sudden crisis with regards to his pancreatitis and liver failure and underwent a pancreatic resection for the chronic pancreatitis and mass in 06/2021 as well as a cholecystectomy. His small bowel was filleted open and laid over the pancrea s. He moved back to [facility] in August 2021. His really wanted to move back here. They have been for about 5 years but together 12 years before that. Since the time has been back, pain is controlled as long as he takes his methadone. He eats about 3000 ronan a day. He does get hungry and he does enjoy his food. He can get very skinny but manages to stay between 119-123 pounds. He really hates Creon so has not taken it in a few years. He has constant constipation. Has constant abdominal aching but it is tolerable. About 6 months ago he started having increased nausea, increased abdominal fullness. Reflux. Constipation got worse. And when he belched, the smell was pretty bad. Like rotten eggs or "something had in there". He has been seeing his primary care provider and an EGD was scheduled in the near future. Differential diagnoses that were banded about included "H. pylori". Appetite started getting affected. Was not able to maintain his 3000 ronan a day intake. There were no fevers, chills. No change in the color of the stool. Started losing weight. In the last 3 weeks, the belching has gotten worse. He has developed a new pain in the R mid abdomen and RUQ that is constant, dull, occasionally cramping. Nausea with reflux, belching, fatigue, and generalized weakness was worse. He had been after 47 units of Lantus a day and was starting to reduce his Lantus because his glucose was getting lower in the morning. Goal is to be 140 in the morning. He gives me his diary and his glucose has been in the 40s this last week. He is down to 40 units in the morning. In the last 2 days his glucose was 30 something or 40 something. At 1 in the morning, his woke up to find him "clenched and turned into himself". His jaw was clenched. Wrist were flexed and arms were close to his body. Unresponsive. So she called EMS. At the scene his glucose was 10. He received dextrose and sugar came up and he became more awake and more alert but his blood pressure was quite low. No change his chronic abdominal pain. By the time he was brought to the emergency room his blood pressure was 98/66. Temperature was 36.4. Respirations 20 and he was 98% saturated on room air. He was given fluid boluses for the low blood pressure, more dextrose, and blood pressure was still in the 80s systolic. So he was started on Levophed. A wor kup ensued to find out why he was still hypotensive: +OH was ruled out with a troponin of 10.4 and a normal EKG. +A workup for sepsis ensued and his white cell count was 7.5 and repeat was 12.2. Lactic acid was 0.9. +A CT of head, chest and belly were done. Head CT did not have any acute crani al pathology. +Chest CT had chronic large, large hiatal hernia in the chest with most of his stomach in the chest. He had diffuse edematous changes involving the stomach. He had probable bibasilar aspiration pneumonia with patchy pneumonia show present in the right upper lobe. He has previous CT was looked at and he had an interval cholecystectomy with this 1. He has air present in the biliary tree but not typically pathologic. Between the last CT and now he is at interval thrombosis of the main portal vein with cavernous transformation and development of varicosities including varicosities extending into the stomach. +The abdominal CT was compared to August 2018 and again there was mention of the cholecystectomy, diffuse air present in the biliary tree, no liver masses or abscess. Mild splenomegaly. Extensive changes of chronic pancreatitis. No hydronephrosis. Moderate to large fecal load with edema, thickening in the wall of the cecum, right colon and proximal transverse colon. Mild pelvic ascites. Differential diagnosis for the segmental colitis could be indicative of infectious versus inflammatory etiologies. Or edema secondary to hepatic dysfunction. Impressive distention of the bladder. I discussed the case with the emergency room provider and we started him on antibiotics since we could be looking at focal colitis as a source of infection as well aspiration pneumonia, both causing hypotension. I also spoke to general surgery because I was worried that this patient could then progressed to needing surgery because of the focal colitis changes. General surgery has graciously seen the patient and at this time he is not a surgical candidate. We are l ooking at possible enteritis. There may be transient ischemia due to the transient hypotension and use of vasopressors. He does comment that the intrathoracic stomach is quite large and could be responsible for bibasilar aspiration pneumonia. The gastric wall edema is of uncertain clinical signif icance. He does not offer any interventions for the colitis, stomach, and will reconsult for a elective hiatal hernia repair down the road I am now admitting the patient as an inpatient to ICU on Levophed for infection as the cause of probable shock, and hypoglycemia due to the use of Lantus with lack of p.o. intake His is at the bedside when I obtain history. When he was initially evalua nataliia by EMS, he was unresponsive. He has vague recollections of being put into the ambulance and he thought he was going into his MRI machine. He hates the MRI machine so we closed his eyes and does not remember much until he was leaving the ER to coming to ICU. RN reports that she went with him to transfer him from CT to ICU. She says that his mentation has improved tremendously. I am finding a gentleman who is awake, alert, oriented. He states that he is having problems with small details but he always does and he relies on his to be "the brain that runs this operation". 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) Respiratory: reports: None, Shortness of breath, Other Neuro: reports: None Endocrine/Autoimmune: reports: Type 1 diabetes, Other (Chronic pancreatitis with subsequent chronic abdominal pain and pancreatectomy) GI: reports: GERD, Hiatal hernia (Almost his entire stomach is in his chest wall), Chronic constipation, Pancreatitis (pancreatectomy 06/22; gastric varices seen on CT) : reports: Retention, Nocturia HEENT: reports: Chronic vision loss (has Rx but never got glasses and Rx will in a few weeks) Psych: reports: Depression Musculoskeletal: reports: Rheumatoid arthritis Derm: reports: None MRSA Hx?: No - Past Surgical History General: reports: Cholecystectomy, Other Ortho: reports: Other Derm: reports: Other Other past surgical history: pancreatectomy with Puestow Procedure by description (lateral pancreaticojejunostomy) - Family & Social History Family History Comment/Other: Dad is in his 70s and has no major medical illnesses. Mom in her 50s of suicide. One brother of a suicide according to corners report. One brother is healthy. No children Social History Notes: He was born and raised in [place]. Moved to [place] and lives there with his first in [facility] in [place]. Most of his hospitalizations for pancreatitis were in [place]. He is currently to his second . He moved would [facility] in 2013 when he was dating his girlfriend. She is now his . They came to see her parents, like at some much they state. 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 Smokes 1 pack per day. Denies any problems with heroin cocaine and LSD speed - Substance History Use: Uses substance without health or social issues: Tobacco - POLST Patient has POLST: No POLST Status: Full Code (However he only wants CPR. He does not want intubation.) Meds/Allgy - Home Medications Home Medications: Ambulatory Orders Medication Instructions Recorded Confirmed Omeprazole 20 mg PO DAILY 06/06/18 06/07/23 buPROPion [Wellbutrin Sr] 300 mg PO DAILY 06/06/18 06/07/23 Insulin Degludec 40 unit SUBQ HS 06/07/23 06/07/23 Methadone [Methadone IntensoL] 120 mg PO DAILY 06/07/23 06/07/23 - Allergies Allergies/Adverse Reactions: Allergies Allergy/AdvReac Type Severity Reaction Status Date / Time shellfish derived Allergy Respiratory Verified 06/07/23 02:41 Review of Systems - Constitutional Constitutional: reports: Fatigue, Malaise, Weakness, Poor appetite, Weight loss. denies: Fever, Chills, Night sweats - Eyes Eyes: reports: Vision loss. denies: Pain, Irritation, Amaurosis, Blurred vision - Ears, Nose & Throat Ears, Nose & Throat: denies: Ear pain, Hearing loss, Hearing aids, Tinnitus, Postnasal drainage, Dentures, Sore throat, Hoarseness - Cardiovascular Cariovascular: reports: Decr. exercise tolerance. denies: Irregular heart rate, Palpitations, Chest pain, Edema, Exertional dyspnea - Respiratory Respiratory: reports: Cough. denies: Sputum production, Wheezing, Snoring, Hemoptysis, Orthopnea, SOB at rest - Gastrointestinal Gastrointestinal: reports: Abdominal pain (RUQ), Constipation, Nausea, Reflux/heartburn, Bloating, Poor appetite. denies: Diarrhea, Change in bowel habits - Genitourinary Genitourinary: reports: Incontinence, Nocturia. denies: Dysuria, Frequency, Urgency, Hematuria - Musculoskeletal Musculoskeletal: reports: Stiffness (diffuse). denies: Muscle pain, Back pain, Muscle aches, Joint swelling - Integumentary Integumentary: denies: Rash, Pruritis, Lesions, Dryness - Neurological Neurological: reports: General weakness, Memory problems. denies: Focal weakness, Headache, Dizziness, Pre-existing deficit, Abnormal gait, Incoordination, Slurred speech - Psychiatric Psychiatric: reports: Depression. denies: Anxiety, Suicidal - Endocrine Endocrine: denies: Polyuria, Polydypsia - Hematologic/Lymphatic Hematologic/Lymphatic: reports: Anemia. denies: Bruising Prior Level of Functionality: He has 2 jobs. 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 He does not drink anymore and he has been sober since approximately 2016. No recreational substance abuse. for 5 years but together 12 years before that. Exam - Vital Signs Reviewed Vital Signs: Yes Vital Signs: Vital Signs x48h Temp Pulse Pulse Resp BP BP Pulse Ox 06/07/23 13:00 16 122/67 97 06/07/23 12:30 36.2 C L 50 L 18 124/80 96 06/07/23 12:00 49 L 15 124/72 98 06/07/23 11:30 46 L 20 129/70 98 06/07/23 11:23 45 L 15 85/51 L 98 06/07/23 11:00 51 L 50 H 100/60 96 06/07/23 10:30 46 L 15 134/59 H 97 06/07/23 10:00 51 L 16 131/78 H 98 06/07/23 09:30 59 L 16 121/80 98 06/07/23 09:25 56 L 18 110/69 98 06/07/23 09:00 65 21 157/89 H 98 06/07/23 08:30 77 16 135/79 H 98 06/07/23 08:00 73 15 136/78 H 97 06/07/23 07:48 78 15 183/105 H 98 06/07/23 07:30 34 L 15 77/56 L 98 06/07/23 07:06 49 L 16 82/54 L 98 06/07/23 06:39 97 14 91/60 98 - Physical Exam General Appearance: positive: No acute distress, Alert, Other (Cachectic white male with a right IJ line, very pale) Eyes Bilateral: positive: PERRL, EOMI ENT: positive: No signs of dehydration, Other (Bearded, long hair) Neck: positive: No JVD. negative: Stiff neck Respiratory: positive: No respiratory distress. negative: Wheezes, Rales, Rhonchi Cardiovascular: positive: Regular rate & rhythm, Systolic murmur Abdomen: positive: Nml bowel sounds, No distention, Tenderness (Right upper quadrant, right mid abdomen). negative: Guarding, Rebound Skin: positive: Warm, Dry, Pallor Extremities: positive: Full ROM, No pedal edema, Other (Tremendous loss of muscle mass. Very cachectic gentleman with protuberant skeletal anatomy evident because of no fat and no muscle) Neurologic/Psychiatric: positive: Oriented x3, CN's nml (2-12), Motor nml Conclusion/Plan - Problem List (1) Shock circulatory Conclusion/Plan: It is not clear why this patient is going to circulatory shock. The differential diagnoses of infection, OH, GI bleed, perforated bowel have all been entertained. We are finding aspiration pneumonia but it is not severe. Most likely that is from the hiatal hernia.He is on methadone, and he could have been obtunded and sedated resulting in the aspiration.Or his QT is prolonged at 500 on EKG, could have had V. tach? We are also finding of focal segmental colitis that could be ischemia. But no antecedent diarrhea and no dilated bowel or toxic megacolon. From what is described by EMS to what is described in the ER to what I am examining at this moment, he has improved tremendously and is almost back at baseline. Nursing still has him on Levophed As such, my plan is to treat him as infection. I have started single agent Zosyn which should cover his bowel and his lung. I will also repeat troponin and EKG Continue Levophed until his pressure returns to normal (2) Acute colitis Conclusion/Plan: Again, there is no antecedent history of diarrhea. He has chronic abdominal pain of the epigastrium and LUQ. What is new is RUQ and R mid abd pain which is where his colitis is. He may have stercoral colitis. He and his do not describe a change in his abdominal pain pattern. She describes more of a "failure to thrive" picture. His colitis could also be due to to the hypotension. Again, we will treat with empiric Zosyn. He is not a general surgery candidate at this time. Plan: N.p.o. for now Zosyn Daily CBC, CMP Repeat imaging if abdominal exam changes Bowel protocol and if this doesn't work, lactulose. (3) Hypoglycemia Conclusion/Plan: I would say this is in the context of a person is probably eating less and less but continuing his insulin. Plan: N.p.o. for now Sliding scale insulin D5.9 at 100 cc an hour (4) Aspiration pneumonia Conclusion/Plan: In the context of a gentleman who has almost all of his stomach in his chest wall due to hiatal hernia. Plan: N.p.o. for now Consider NG tube for decompression if he has emesis Proton pump inhibitor Qualifiers: Aspiration pneumonia type: due to regurgitated food (5) Diabetes 1.5, managed as type 1 Conclusion/Plan: On Lantus, and short acting insulin at home. His hypoglycemia seems to be from gradually decreasing food intake. Even though he has been checking his sugars and reducing his Lantus, his glucose may have dropped precipitously due to no eating yesterday. He says he has not eaten very much in 2 or 3 days. Here I am keeping him n.p.o., will check glycosylated hemoglobin, and will do only sliding scale. I will not resume lantus for today. To avoid hypoglycemia in the next few hours, he will get a D5 drip. Once his sugars stabilize I will transition h im to normal saline, and start to feed him (6) Chronic pain Conclusion/Plan: The patient's list stated on methadone 120 mg daily, Cymbalta and Wellbutrin SR 300 mg daily. While I do have him n.p.o. for food, I am allowing meds and ice chips for this. I will check EKG daily. He is on telemetry so I can monitor his rhythm for the next couple of days. EKG shows that his QT interval is prolonged. A possible clinical scenario out all of this would have been V. tach due to the methadone resulting in temporary cardiovascular shock. Qualifiers: Chronic pain type: chronic pain syndrome Qualified Code(s): G89.4 - Chronic pain syndrome (7) Hypokalemia Conclusion/Plan: Supplement via K rider and recheck in 4 hours (8) Hiatal hernia with GERD Conclusion/Plan: His history for the last 6 months is concerning. He has developed increasing constipation, and when he belches the family is smelling shoes hand sewer or "rotten eggs". Belching is gotten worse, reflux is gotten worse with nausea. The last 2 days been particularly severe. He now presents with a pattern of aspiration pneumonitis on CT and chest x-ray. I have shared with both of them that I do worry about hiatal hernia incarceration. I shared with him the signs and symptoms of that so that if he were ever to become ill, they need to be able to share that with an ER provider or their PCP. Plan: I would like to give Reglan but in view of the prolonged QT and possibility of V. tach from methadone, I am going to be holding off on that. Bowel protocol Proton pump inhibitors I will try lactulose if bowel movement is not induced. Once he starts having bowel movements I will repeat KUBs of the abdomen to see if there is any successful movement of his impacted stool In the outpatient setting, general surgery is already mentioned that this gentleman would be a candidate for surgery. Considering the patient's symptoms that he is described, I completely agree (9) Pancreatic insufficiency Conclusion/Plan: Although this gentleman eats well, and he describes a diet that is very acceptable, he tells me that he is chronically anemic. Sometimes he takes iron, sometimes he does not. His is very clear that he did not get a small bowel resection. She describes a Puestow procedure. In addition, he does not do C reon. I explained to both of them with pancreatic insufficiency with due to with regards to nutritional intake. Plan: Nutrition consult. Anemia panel in the morning I recommended he start taking vitamins on a regular basis for the be part and, and strongly consider regular iron infusions if he is not absorbing iron. I have also recommend that he start taking Creon again. He rolls his eyes and said he hates that stuff. - Lab Results Lab results reviewed: Yes Fish Bones: 06/07/23 11:20 06/07/23 02:44 - Diagnostic Imaging Results Diagnostic Imaging Results: positive: Final report reviewed (See HPI) - EKG Results EKG Interpreted Independently: Yes EKG Comparison: Unchanged from prior EKG Core Measures - Anticipated LOS I expect patient to be DC'd or transferred within 96 hours.: Yes - DVT/VTE - Prophylaxis VTE/DVT Prophylaxis med ordered at admit?: Yes
[2023-06-07] MEDS ORDERED: ATROPINE ABBOJECT 1 MG/10 ML SYRINGE IVP ONE (14:59)
[2023-06-07] MEDS: PANTOPRAZOLE 40 MG VIAL IVP SCH (15:02)
[2023-06-07] MEDS: SODIUM CHLORIDE FLUSH 0.9% 10 ML SYRINGE IVP SCH ×2 (15:03→22:07)
[2023-06-07] MEDS: POTASSIUM CHLOR 10 MEQ/100 ML 10 MEQ/100 ML BAG IV SCH ×4 (15:04→18:40)
[2023-06-07] MEDS: PIPERACILLIN/TAZOBACTAM 3.375 GM in SODIUM CHLORIDE 0.9% MINIBAG 100 ML IV SCH (16:12)
[2023-06-07] MEDS: METHADONE 50 MG/5 ML ORAL SYRINGE PO SCH (17:01)
--- NOTE | 2023-06-07 17:08 | PHARMACY PROGRESS NOTE ---
- Best Possible Medication History Admit Date and Time: 06/07/23 1140 Processed by: Nursing As the person ultimately responsible for medication therapy, providers are able to order a medication from an existing home medication list in [facility] via the "Reconcile Routine" prior to Confirmation of that medication by account support manager. Such practice is discouraged except when the physician, in their clinical judgment, deems that a medical need exists for a medication without regard to previous use.
[2023-06-07] MEDS: buPROPion XL 150 MG TABLET PO SCH (17:24)
[2023-06-07] MEDS: INSULIN REGULAR HUMAN 300 UNIT/3 ML VIAL SUBQ SCH ×2 (20:27→23:34)
[2023-06-07] MEDS: CALCIUM CARBONATE CHEW 500 MG TABLET PO SCH (20:27)
[2023-06-07] MEDS: SODIUM CHLORIDE FLUSH 0.9% 10 ML SYRINGE IVP PRN ×2 (20:37→22:07)
[2023-06-07 22:17] LABS: CALCIUM, IONIZED 1.02 mmol/L (1.15-1.33); VBG PH 7.418 (7.31-7.41)
[2023-06-07 22:44] LABS: MAGNESIUM 1.7 mg/dL (1.7-2.3); PHOSPHORUS 2.5 mg/dL (2.5-5.0); POTASSIUM 5.1 mmol/L (3.5-4.5)
[2023-06-07] MEDS ORDERED: CALCIUM GLUC 1,000MG/50ML-NACL 1,000 MG/50 ML BAG IV ONE (22:54)
[2023-06-07] MEDS ORDERED: MAGNESIUM SULFATE 2 GRAM 2 GM/50 ML BAG IV ONE (22:54)
[2023-06-07] MEDS ORDERED: SODIUM CHLORIDE FLUSH 0.9% 10 ML SYRINGE IVP PRN (22:57)
[2023-06-07] MEDS: NEUTRA-PHOS 250 MG TABLET PO SCH (23:19)
[2023-06-08] MEDS: PIPERACILLIN/TAZOBACTAM 3.375 GM in SODIUM CHLORIDE 0.9% MINIBAG 100 ML IV SCH ×4 (00:26→23:46)
[2023-06-08] MEDS: NEUTRA-PHOS 250 MG TABLET PO SCH ×3 (00:27→19:00)
[2023-06-08 03:08] LABS: CALCIUM, IONIZED 1.08 mmol/L (1.15-1.33); VBG PH 7.401 (7.31-7.41)
[2023-06-08] MEDS ORDERED: CALCIUM GLUC 1,000MG/50ML-NACL 1,000 MG/50 ML BAG IV ONE ×3 (03:39→16:59)
[2023-06-08] MEDS: DEXTROSE 5%-0.9% NACL 1,000 ML IV SCH ×3 (04:44→16:12)
[2023-06-08] MEDS: SODIUM CHLORIDE FLUSH 0.9% 10 ML SYRINGE IVP PRN ×2 (05:03→06:12)
[2023-06-08 05:40] LABS: CALCIUM, IONIZED 1.1 mmol/L (1.15-1.33); VBG PH 7.357 (7.31-7.41)
[2023-06-08 05:41] LABS: BASOPHILS % (AUTO) 0.2 %; EOSINOPHILS % (AUTO) 0.1 %; HCT - HEMATOCRIT 31.5 % (42.0-52.0); HGB - HEMOGLOBIN 10.3 g/dL (14.0-18.0); LYMPHOCYTES # (AUTO) 1.3 10^3/uL (1.5-3.5); LYMPHOCYTES % (AUTO) 9.1 %; MEAN CORPUSCULAR HGB CONC 32.7 g/dL (32.0-36.0); MEAN CORPUSCULAR VOLUME 91.8 fL (80.0-94.0); MEAN PLATELET VOLUME 10.7 fL (7.4-11.4); MONOCYTES # (AUTO) 1.1 10^3/uL (0.0-1.0); NEUTROPHILS # (AUTO) 11.4 10^3/uL (1.5-6.6); NEUTROPHILS % (AUTO) 82.2 %; PLT - PLATELET COUNT 190 10^3/uL (130-450); RED BLOOD COUNT 3.43 10^6/uL (4.70-6.10); RED CELL DISTRIBUTION WIDTH 13.8 % (12.0-15.0); WHITE BLOOD COUNT 13.9 x10^3/uL (4.8-10.8)
[2023-06-08 06:01] LABS: MAGNESIUM 2.2 mg/dL (1.7-2.3); PHOSPHORUS 2.8 mg/dL (2.5-5.0)
[2023-06-08 06:04] LABS: CALCIUM 8.1 mg/dL (8.5-10.3); CREATININE 0.7 mg/dL (0.6-1.3); POTASSIUM 4.3 mmol/L (3.5-4.5)
[2023-06-08] MEDS: oxyCODONE 5 MG TABLET PO PRN ×5 (06:11→23:46)
[2023-06-08] MEDS: PANTOPRAZOLE 40 MG VIAL IVP SCH (06:12)
[2023-06-08] MEDS: INSULIN REGULAR HUMAN 300 UNIT/3 ML VIAL SUBQ SCH ×4 (07:26→23:49)
--- NOTE | 2023-06-08 08:31 | PROVIDER PROGRESS NOTE ---
Progress Note Overnight the patient has been comfortable. However he has consistent bradycardia. Blood pressure is in the 90s over 50s on the low side. On the high side he is 110s over 60s. He remains on Levophed 4 mcg/min. I have been trending his troponins and they are coming down. He has not had any more episodes of hypoglycemia. Still with the constant dull right upper quadrant and right mid abdominal pain. Sometimes a 7 out of a 10. Sometimes down to a 3 out of a 10. Still no bowel movement. Cope is draining julian urine. Urine output was 555 yesterday, and 370 since midnight last night. But yesterday he had 4589 in. Active Medications Acetaminophen (Acetaminophen 325 Mg Tablet) 650 mg PO Q4HR PRN PRN Reason: Pain 1 to 4, or Fever Bupropion HCl (Bupropion Xl 150 Mg Tablet) 300 mg PO DAILY [facility] Last Admin: 06/07/23 17:24 Dose: 300 mg Calcium Carbonate/Glycine (Calcium Carbonate Chew 500 Mg Tablet) 500 mg PO BID [facility] Last Admin: 06/07/23 20:27 Dose: 500 mg Dextrose/Sodium Chloride (D5ns) 1,000 mls @ 100 mls/hr IV .Q10H [facility] Last Admin: 06/08/23 06:00 Dose: 100 mls/hr Piperacillin Sod/Tazobactam (Sod 3.375 gm/ Sodium Chloride) 100 mls @ 25 mls/hr IV Q8H [facility] Last Admin: 06/08/23 07:41 Dose: 25 mls/hr NOREPINEPHRINE/0.9 % NS (Levophed 8 Mg/250-0.9% Nacl) 8 mg in 250 mls @ 11.25 mls/hr IV .[id number] [facility]; Protocol Stop: 06/08/23 12:13 Last Titration: 06/07/23 20:30 Dose: 4 mcg/min, 7.5 mls/hr Insulin Human Regular (Insulin Regular Human 300 Unit/3 Ml Vial) 3 - 11 unit SUBQ Q6HR [facility]; Protocol Last Admin: 06/08/23 07:26 Dose: Not Given Methadone HCl (Methadone 50 Mg/5 Ml Oral Syringe) 120 mg PO DAILY [facility] Last Admin: 06/07/23 17:01 Dose: 120 mg Ondansetron HCl (Ondansetron Odt 4 Mg Tablet) 4 mg TL Q6HR PRN PRN Reason: Nausea / Vomiting Ondansetron HCl (Ondansetron 4 Mg/2 Ml Vial) 4 mg IVP Q6HR PRN PRN Reason: Nausea / Vomiting Oxycodone HCl (Oxycodone 5 Mg Tablet) 5 mg PO Q4HR PRN PRN Reason: Pain 5 to 7 Last Admin: 06/08/23 06:11 Dose: 5 mg Pantoprazole Sodium (Pantoprazole 40 Mg Vial) 40 mg IVP QDAC [facility] Last Admin: 06/08/23 06:12 Dose: 40 mg Sodium Chloride (Sodium Chloride Flush 0.9% 10 Ml Syringe) 10 ml IVP 0100,0900,1700 [facility] Last Admin: 06/07/23 22:07 Dose: 10 ml Sodium Chloride (Sodium Chloride Flush 0.9% 10 Ml Syringe) 10 ml IVP PRN PRN PRN Reason: NEEDED PER PROVIDER ORDERS Last Admin: 06/08/23 06:12 Dose: 10 ml Sodium Chloride (Sodium Chloride Flush 0.9% 10 Ml Syringe) 20 ml IVP PRN PRN PRN Reason: After Blood Draw Last Admin: 06/08/23 05:03 Dose: 20 ml Home Meds: Omeprazole 20 mg PO DAILY 06/06/18 buPROPion [Wellbutrin Sr] 300 mg PO DAILY 06/06/18 Insulin Degludec 40 unit SUBQ HS 06/07/23 Methadone [Methadone IntensoL] 120 mg PO DAILY 06/07/23 Exam: Temperature is 37, heart rate 49, blood pressure 120/85, respirations 14, 96% on room air. Cachectic fatigued appearing white male, disheveled appearance with long hair, simmons. Alert, oriented to person place and time. Shotty neck adenopathy Coarse upper airway sounds. Occasional rhonchi midlung field. But no tachypnea or increased respiratory effort Regular rate and rhythm Abdomen is soft, nontender Extremities without edema Alert and oriented to person place and time and situation. Lab: BMP is normal. Glucose 131. Phosphorus 2.8, magnesium 2.2 and normal. Iron is 65, B12 as high as 1758. Vitamin D is very low at 8.6. Repeat troponin is 39. (First troponin was 10, then 64, then 69) Conclusion/Plan - Problem List (1) Shock circulatory Conclusion/Plan: It is not clear why this patient is going to circulatory shock. The differential diagnoses of infection, MO, GI bleed, perforated bowel have all been entertained. We are finding aspiration pneumonia but it is not severe. Most likely that is from the hiatal hernia.He is on methadone, and he could have been obtunded and sedated resulting in the aspiration.Or his QT is prolonged at 500 on EKG, could have had V. tach? We are also finding of focal segmental colitis that could be ischemia. But no antecedent diarrhea and no dilated bowel or toxic megacolon. The patient improved from transfer to ICU from ER. And continued to improve today throughout the day with mentation, alertness. I have been monitoring his EKGs and his QT was 521 yesterday, and 559 today. I do worry about that because of his methadone. Still on Levophed but nursing states that they are going to be able to taper him off of Levophed by later this afternoon. Blood pressure is staying stable.Day #2 Plan: Continue to treat him as an infection. I am treating both aspiration pn eumonitis and colitis (probable stercoral colitis). Today's day #2 of Zosyn. (2) Acute colitis Conclusion/Plan: Again, there is no antecedent history of diarrhea. He has chronic abdominal pain of the epigastrium and LUQ. What is new is RUQ and R mid abd pain which is where his colitis is. He may have stercoral colitis. He and his do not describe a change in his abdominal pain pattern. She describes more of a "failure to thrive" picture. His colitis could also be due to to the hypotension. Again, we will treat with empiric Zosyn. He is not a general surgery candidate at this time. Plan: Start clear liquid diet. Zosyn Day #2 Daily CBC, CMP So far I have not needed to repeat imaging of his abdomen. Abdominal pain is about the same or slightly improved from the new pain in his right upper quadrant Continue to encourage nursing to use bowel protocol to get him to have a bowel movement (3) Hypoglycemia Conclusion/Plan: I would say this is in the context of a person is probably eating less and less but continuing his insulin. Plan: Start clear liquid diet start advancing. Continue sliding scale insulin. Continue D5 (4) Aspiration pneumonia Conclusion/Plan: In the context of a gentleman who has almost all of his stomach in his chest wall due to hiatal hernia. Plan: Day #2 Zosyn. Consider changing to p.o. once hypoxemia has resolved and patient eating a normal diet Qualifiers: Aspiration pneumonia type: due to regurgitated food (5) Diabetes 1.5, managed as type 1 Conclusion/Plan: On Lantus, and short acting insulin at home. His hypoglycemia seems to be from gradually decreasing food intake. Even though he has been checking his sugars and reducing his Lantus, his glucose may have dropped precipitously due to no eating the day of admission. He says he has not eaten very much in 2 or 3 days. I am keeping him on D5 until I know he is eating Continue sliding scale but will resume Lantus if his sugar comes up (6) Chronic pain Conclusion/Plan: The patient's list stated on methadone 120 mg daily, Cymbalta and Wellbutrin SR 300 mg daily. While I do have him n.p.o. for food, I am allowing meds and ice chips for this.He is on telemetry. No V. tach. QT interval was 521 on June 07. It is 559 today. I am not happy about that interval and I consider doing Reglan for nausea but will not do that because of this. A possible clinical scenario out all of this would have been V. tach due to the methadone resulting in temporary cardiovascular shock. Qualifiers: Chronic pain type: chronic pain syndrome Qualified Code(s): G89.4 - Chronic pain syndrome (7) Hypokalemia resolved Conclusion/Plan: normal today after yesterday's k rider (8) Hiatal hernia with GERD Conclusion/Plan: His history for the last 6 months is concerning. He has developed increasing constipation, and when he belches the family is smelling double end sewer or "rotten eggs". Belching is gotten worse, reflux is gotten worse with nausea. The last 2 days [employer] had been particularly severe. He now presents with a pattern of aspiration pneumonitis on CT and chest x-ray. I have shared with both of them that I do worry about hiatal hernia incarceration. I shared with him the signs and symptoms of that so that if he were ever to become ill, they need to be able to share that with an ER provider or their PCP. Plan: I would like to give Reglan but in view of the prolonged QT and possibility of V. tach from methadone, I am going to be holding off on that. Bowel protocol Proton pump inhibitors He tells me he has an appointment with a GI specialist in July. I strongly encouraged him to keep that appointment and to discuss his pancreatic insufficiency, the size of his hiatal hernia, the possibility of vasovagal stimulation from this hernia in his chest. The weight loss. (9) Pancreatic insufficiency Conclusion/Plan: Although this gentleman eats well, and he describes a diet that is very acceptable, he tells me that he is chronically anemic. Sometimes he takes iron, sometimes he does not. His is very clear that he did not get a small bowel resection. She describes a Puestow procedure. After finding out he had not been taking his Creon, nutrition services and I have discussed the case and we have started Creon now that he is going to go on a diet. Anemia panel shows normal iron so far.
[2023-06-08] MEDS ORDERED: buPROPion XL 150 MG TABLET PO SCH (09:00)
[2023-06-08] MEDS ORDERED: OMEPRAZOLE 20 MG PO SCH (09:00)
[2023-06-08] MEDS ORDERED: METHADONE 50 MG/5 ML ORAL SYRINGE PO SCH (09:00)
[2023-06-08] MEDS: buPROPion XL 150 MG TABLET PO SCH (09:44)
[2023-06-08] MEDS: CALCIUM CARBONATE CHEW 500 MG TABLET PO SCH ×2 (09:45→20:05)
[2023-06-08] MEDS: SODIUM CHLORIDE FLUSH 0.9% 10 ML SYRINGE IVP SCH ×3 (09:45→23:55)
[2023-06-08] MEDS: polyethylene glycoL 3350 17 GM PACKET PO SCH (10:00)
[2023-06-08] MEDS: METHADONE 50 MG/5 ML ORAL SYRINGE PO SCH (10:33)
[2023-06-08 11:01] LABS: ABSOLUTE RETICS # AUTO 0.045 10^6/uL (0.020-0.110); RED BLOOD COUNT 3.41 10^6/uL (4.70-6.10); RETICULOCYTE COUNT % (AUTO) 1.32 % (0.5-2.3)
[2023-06-08 11:13] LABS: % IRON SATURATION 31 % (20-50); IRON 65 ug/dL (50-212); TOTAL IRON BINDING CAPACITY 209 ug/dL (250-450); TRANSFERRIN 149 mg/dL (203-362)
[2023-06-08] MEDS ORDERED: LACTULOSE 10 GM /15 ML UDC PO ONE (11:58)
[2023-06-08] MEDS ORDERED: LIPASE/PROTEASE/AMYLASE CAPSULE PO PRN (12:11)
[2023-06-08] MEDS: SENNA 8.6 MG TABLET PO SCH (12:28)
[2023-06-08] MEDS: DOCUSATE SODIUM 250 MG CAPSULE PO SCH (12:28)
[2023-06-08] MEDS: LIPASE/PROTEASE/AMYLASE CAPSULE PO SCH ×2 (12:29→16:16)
[2023-06-08] MEDS: NICOTINE 14 MG PATCH TOP SCH (16:11)
[2023-06-08] MEDS: PRENATAL VITAMIN TABLET PO SCH (16:16)
[2023-06-08 16:26] LABS: CALCIUM, IONIZED 1.08 mmol/L (1.15-1.33); VBG PH 7.354 (7.31-7.41)
[2023-06-08 16:37] LABS: MAGNESIUM 1.8 mg/dL (1.7-2.3); PHOSPHORUS 2.4 mg/dL (2.5-5.0)
[2023-06-08] MEDS: MAGNESIUM OXIDE 400 MG TABLET PO SCH ×2 (17:07→23:46)
[2023-06-09] MEDS: DEXTROSE 5%-0.9% NACL 1,000 ML IV SCH (01:57)
[2023-06-09] MEDS: oxyCODONE 5 MG TABLET PO PRN ×3 (04:33→19:50)
[2023-06-09 05:28] LABS: CALCIUM, IONIZED 1.07 mmol/L (1.15-1.33); VBG PH 7.414 (7.31-7.41)
[2023-06-09] MEDS: INSULIN REGULAR HUMAN 300 UNIT/3 ML VIAL SUBQ SCH ×3 (05:57→16:57)
[2023-06-09 06:08] LABS: MAGNESIUM 1.6 mg/dL (1.7-2.3); PHOSPHORUS 2.7 mg/dL (2.5-5.0)
[2023-06-09] MEDS: PANTOPRAZOLE 40 MG VIAL IVP SCH (06:27)
[2023-06-09] MEDS: PIPERACILLIN/TAZOBACTAM 3.375 GM in SODIUM CHLORIDE 0.9% MINIBAG 100 ML IV SCH (08:08)
[2023-06-09] MEDS: MAGNESIUM OXIDE 400 MG TABLET PO SCH ×2 (08:08→16:13)
[2023-06-09] MEDS: LIPASE/PROTEASE/AMYLASE CAPSULE PO SCH ×3 (08:08→16:19)
[2023-06-09] MEDS: CALCIUM CARBONATE CHEW 500 MG TABLET PO SCH ×2 (08:09→21:14)
[2023-06-09] MEDS: PRENATAL VITAMIN TABLET PO SCH (08:09)
[2023-06-09] MEDS: buPROPion XL 150 MG TABLET PO SCH (08:09)
[2023-06-09] MEDS: DOCUSATE SODIUM 250 MG CAPSULE PO SCH (08:09)
[2023-06-09] MEDS: SENNA 8.6 MG TABLET PO SCH (08:09)
[2023-06-09] MEDS: polyethylene glycoL 3350 17 GM PACKET PO SCH (08:10)
[2023-06-09] MEDS: SODIUM CHLORIDE FLUSH 0.9% 10 ML SYRINGE IVP SCH ×2 (08:10→16:13)
[2023-06-09] MEDS: NICOTINE 14 MG PATCH TOP SCH (08:10)
[2023-06-09] MEDS: METHADONE 50 MG/5 ML ORAL SYRINGE PO SCH (08:31)
[2023-06-09] MEDS ORDERED: DOCUSATE SODIUM 250 MG CAPSULE PO SCH (09:00)
[2023-06-09] MEDS ORDERED: SENNA 8.6 MG TABLET PO SCH (09:00)
[2023-06-09] MEDS ORDERED: ERGOCALCIFEROL 50,000 UNIT CAPSULE PO ONE (11:51)
--- NOTE | 2023-06-09 15:46 | XRAY Report ---
PROCEDURE: Chest 1 View X-Ray INDICATIONS: s/p intubation/extubation w crackles and hypoxia TECHNIQUE: One view of the chest was acquired. COMPARISON: CT chest 06/07/2023, radiograph June 07, 2023 FINDINGS: Surgical changes and devices: Right central line with acute 90 degree kinking at the level of the finley perior and cava. Lungs and pleura: Persistent opacity within the right lung consistent with known large hiatal hernia . Bilateral airspace opacities better seen on comparison CT. Mediastinum: Mediastinal contours appear normal. Heart size is normal. Bones and chest wall: No suspicious bony lesions. Overlying soft tissues appear unremarkable. IMPRESSION: 1.Persistent bilateral airspace opacities better seen on comparison CT. 2.Acute angulation and distal kinking of a right central line, consider replacement. 3.Large hiatal hernia. Reviewed by: Ottoniel Chew MD on 06/09/2023 2:45 PM AKST Approved by: Ottoniel Chew MD on 06/09/2023 2:45 PM [place] Station ID: [id number]
[2023-06-09] MEDS: metroNIDAZOLE 250 MG TABLET PO SCH (16:19)
--- NOTE | 2023-06-09 16:40 | PROVIDER PROGRESS NOTE ---
Progress Note June 09, 2023 4:30 PM Examined the patient this morning and this afternoon. Had a long conversation with he and his this afternoon. He feels much better. I still keeping hearing crackles and I repeated a chest x-ray which showed the same persistent bibasilar changes. The radiologist feels that they are much better seen on chest CT from June 07. He is surprised at how much better he feels today. He thought he would be very weak and exhausted. He says that walking the hallway definitely was a challenge for him today but he was able to do it and get back in bed without much of an assist. We spoke about his need to make sure he takes the Creon with his food. He is also continue to take a multivitamin,And we challenged him with clear liquids yesterday and he did well. So he was advanced to a carb controlled diet and is tolerating that. Exam: Temperature 37.1, heart rate 66, blood pressure 121/69, respirations 12, he goes from 93% saturated on room air to 91% saturated with 5 L. Pale, cachectic appearing white male looks much older than stated age. 5 feet 10 inches tall, 61.5 kg. Right IJ in place, and 2 peripheral IVs in each forearm. Supple neck Rhonchi and crackles in the mid lungs. But no respiratory distress. He appears quite comfortable. Regular rate and rhythm Abdomen is soft, hypoactive bowel sounds, nontender. He did have a bowel movement today. Extremities without edema Sitting up in the bed by himself, able to go from supine to sitting to standing without any effort. Lab: Potassium 4 today. Phosphorus 2.7, magnesium 1.6 and supplemented. Glucose this morning 140 before breakfast, Conclusion/Plan - Problem List (1) Shock circulatory resolved Conclusion/Plan: He had a seizure at home I think from a glucose of 10. Antecedent history of gradually dwindling p.o. intake, worsening hypoglycemia in the bowel/belching gas that smelled like "something inside" for the last few months. Even though EMS resuscitated him with an amp of D50, his blood pressure did not respond and he ended up having to be placed on pressors and transferred into the ICU from the ER. The differential diagnoses of infection, IA, GI bleed, perforated bowel have all been entertained. We are finding aspiration pneumonia but it is not severe. Most likely that is from the hiatal hernia. He is on methadone, and he could have been obtunded and sedated resulting in the aspiration.Or his QT is prolonged at 500 on EKG, could have had V. tach? We also saw focal segmental colitis on CT that could be ischemia. But no antecedent diarrhea and no dilated bowel or toxic megacolon. He could have stercoral colitis from his stool burden. By the time he went to the ICU, his mentation had improved tremendously. His troponins did go up but I repeated them and they were 64, 69 and then 39. As such I think these are a demand ischemia response to the circulatory collapse and not an NSTEMI. He was able to come off pressors on June 08 in the afternoon. I started single agent Zosyn in an effort to cover both colitis and aspiration pneumonia. Nursing is noting that he is having episodes of hypopnea. He stops breathing for about 15 to 20 seconds at a time during the night. He does not desaturate with this. Plan: Transfer to [facility] status Discontinue the right IJ line Discontinue the Cope Keep only 1 peripheral vein IV Outpatient sleep study in the midst of all the other things he is going to need to do in the outpatient Cope was discontinued yesterday by me (2) Acute colitis Conclusion/Plan: Again, there is no antecedent history of diarrhea. He has chronic abdominal pain of the epigastrium and LUQ. What is new is RUQ and R mid abd pain which is where his colitis is. He may have stercoral colitis. He and his do not describe a change in his abdominal pain pattern. She describes more of a "failure to thrive" picture. His colitis could also be due to to the hypotension. This pain has improved tremendously. He still continues to have his chronic epigastric and left upper quadrant aching. He has had a celiac plexus removed so he does not feel pain the way he used to with his pancreatitis.Through the stay he has not had any diarrhea.I started food ye sterday on June 08 and he is tolerating it well. Plan: Discontinue Zosyn and start Levaquin p.o. with Flagyl p.o.. Today is day #3 of hospitalization and day #3 of antibiotics. Daily CBC, CMP Repeat imaging if abdominal exam changes (3) Hypoglycemia resolved Conclusion/Plan: This is in context of minimal to no p.o. intake and continuing to take his Lantu s insulin. Even though he was tapering it down, he did not taper it down enough. This resulted in a glucose of 10 and probable seizure that resulted in the admission. The admission then has uncovered a lot of chronic medical problems that he needs to address including noncompliance with Creon, a large hiatal hernia that may be causing bradycardia, bradycardia that may be from the hiatal hernia or intrinsic sinus node dysfunction, a wide QT interval from methadone on EKG and severe constipation causing possible stercoral colitis. He has not had any further hypoglycemia during the stay. I will stop the D5 drip today. He is only on sliding scale insulin and I will resume Lantus at 10 units tonight. (4) Aspiration pneumonia Conclusion/Plan: In the context of a gentleman who has almost all of his stomach in his chest wall due to hiatal hernia.I started to feed him yesterday and he is tolerating his diet without nausea or vomiting. He does have continued crackles on lung exam. I repeated his chest x-ray and there is no real change according to the radiology read. They feel that he still has bibasilar changes. And the bibasilar changes are better seen on the CT from admission. Clinically the patient is much improved. I am changing him over to oral antibiotics in the form of Levaquin and Flagyl. Aspiration pneumonia type: due to regurgitated food (5) Diabetes 1.5, managed as type 1 Conclusion/Plan: On Lantus, and short acting insulin at home. Hypoglycemia was due to to lack of p.o. intake and continuing to take his insulin even though he was tapering the Lantus. Since here have had him on a D5 drip. I started a diet yesterday. Stop D5W Add Lantus 10 units tonight Continue sliding scale (6) Chronic pain Conclusion/Plan: The patient's list stated on methadone 120 mg daily, Cymbalta and Wellbutrin SR 300 mg daily. While I do have him n.p.o. for food, I am allowing meds and ice chips for this. EKG had a QT interval of 521 on the seventh, 559 on the eighth, and today he is 454. I have not discussed that yet with he or his . But before discharge I will make sure he knows so we can inform the methadone clinic. Qualifiers: Chronic pain type: chronic pain syndrome Qualified Code(s): G89.4 - Chronic pain syndrome (7) Hypokalemia Conclusion/Plan: Supplemented 2 days ago and has been stable since. (8) Hiatal hernia with GERD Conclusion/Plan: His history for the last 6 months is concerning. He has developed increasing constipation, and when he belches the family is smelling sewer head or "rotten eggs". Belching is gotten worse, reflux is gotten worse with nausea. The last 2 days been particularly severe. He now presents with a pattern of aspiration pneumonitis on CT and chest x-ray. I have shared with both of them that I do worry about hiatal hernia incarceration. I shared with him the signs and symptoms of that so that if he were ever to become ill, they need to be able to share that with an ER provider or their PCP. Plan, keep the appointment he has in July with his GI specialist. This was discussed with them yesterday. (9) Pancreatic insufficiency Conclusion/Plan: Although this gentleman eats well, and he describes a diet that is very acceptable, he tells me that he is chronically anemic. Sometimes he takes iron, sometimes he does not. His is very clear that he did not get a small bowel resection. She describes a Puestow procedure. In addition, he does not do Creon. I explained to both of them with pancreatic insufficiency with due to with regards to nutritional intake. We have resumed his Creon and he is tolerating it. He is on a vitamin.
[2023-06-09] MEDS ORDERED: INSULIN GLARGINE-YFGN 300 UNIT/3 ML PEN SUBQ SCH (21:00)
[2023-06-10] MEDS: SODIUM CHLORIDE FLUSH 0.9% 10 ML SYRINGE IVP SCH ×2 (00:05→08:21)
[2023-06-10] MEDS: oxyCODONE 5 MG TABLET PO PRN (03:27)
[2023-06-10] MEDS ORDERED: PANTOPRAZOLE 40 MG TABLET PO SCH (07:00)
[2023-06-10 07:44] VITALS: BP 104/60; O2SAT 93
[2023-06-10] MEDS ORDERED: INSULIN LISPRO 300 UNIT/3 ML PEN SUBQ SCH (08:00)
--- NOTE | 2023-06-10 08:01 | DISCHARGE SUMMARY ---
Discharge Summary Admit Date: 06/07/23 Discharge Date: 06/10/23 Discharging Provider: Gloria Soriano MD Primary Care Provider: Estefania Levi Code Status: Attempt Resuscitation Condition at Discharge: Fair Discharge Disposition: 01 Home, Self Care - DIAGNOSES Discharge Diagnoses with Status of Each Condition: 1. Circulatory shock 2. Hypoglycemia to 10 3. Seizure secondary to #2 4. Aspiration pneumonia 5. Diabetes 1.5, managed as type I 6. Chronic pain syndrome treated with methadone 7. Prolonged QT 8. Hypokalemia 9. Hiatal hernia with GERD 10. Pancreatic insufficiency 11. Focal colitis - HPI History of Present Illness: This gentleman has had chronic pancreatitis from chronic alcohol abuse and had approximately 20 admissions for this by 2018. He became clean and sober 2015 and was on methadone by then for the pain from the chronic pancreatitis. The pancreatitis resulted in type 2 diabetes mellitus treated as a type I. When he moved to [place] he had a sudden crisis with regards to his pancreatitis. It was not due to alcohol abuse and he underwent a pancreatic resection in Jun with a cholecystectomy. He is describing a [place] procedure. He has chronic problems with maintaining weight. His favorite food is a large bowl of yogurt in the morning. He still takes Lantus for the diabetes. His pain is controlled with methadone and the fact that he had a celiac plexus resection with the pancreatectomy. He states between 119-123 pounds. Has not been taking the Creon because he hates it. Bowel habits changed 6 months ago with increased nausea, fullness, reflux. Constipation worse. When he belches it smells like "something in there". In the last 3 weeks his abdominal complaints have gotten worse and he is developing new pain in the right mid and right upper quadrant. He has been eating less and glucoses come down to the 30s and 40s in the tour agent hours so he has been decreasing Lantus on his own. His woke up because she could feel him moving in bed and found him to be most likely in the midst of a seizure. EMS was called and his glucose was 10. He received an amp of D50 with EMS. Minimal response. By the time he got to the ER blood pressure was 98/66 and he continued to be hypotensive in spite of fluid boluses, more dextrose and he was put on Levophed. In the ER NC was ruled out, sepsis workup ensued. He has a large hiatal hernia that sits in his chest. Diffuse edematous changes of the stomach with gastric varices. Probable bibasilar aspiration with patchy pneumonia in the mid lung montejo especially in the right upper lobe. He has a focal colitis of the ascending and transverse bowel without any air-fluid levels. Just generalized edema. He has a large stool burden. Patient was admitted for the hypoglycemia and the circulatory shock presumed to be from pneumonia, seizure, and possible focal colitis. - CONSULTS | PROCEDURES Procedures: Chest x-ray was done before and after intubation and a central line and he has a right IJ line into the azygous, bilateral perihilar infiltrate suspicious for pneumonia, a large hiatal hernia. A chest and abdomen CT showed a large hiatal hernia containing the stomach with diffuse edematous changes involving the stomach. Probable bibasilar aspiration with patchy pneumonia in the right upper lobe. A cholecystectomy since the last time he had a CT at our institution in August 2018. He has air in the biliary tree that is typically not pathologic. 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 Extensive changes of pancreatitis. Mild splenomegaly at 13.7 cm. Kidneys are normal. Moderately large fecal load with edema and thickening of the wall of the cecum and right colon and proximal transverse colon. Mild pelvic ascites. Very impressive distention of the bladder. Blood cultures negative - HOSPITAL COURSE Hospital Course: The patient was transferred to the ICU on the Levophed drip. He was treated with antibiotics, IV fluids. Started on D5 to maintain his glucose. Acute colitis and aspiration was treated with Zosyn. White cell count was 7.5 on admission. Peaked at 13.9. And was 4.0 by the time of discharge. Once he was more alert, food was started and advanced. He was able to come off Levophed, antibiotics changed to p.o. antibiotics of Levaquin and Flagyl. Hypoglycemia resolved and I transitioned him to resuming Lantus. At home he was on 47 units and it tapered himself down to 40 units when he had his hypoglycemic reaction. Here I only had him on 10 units of Lantus at night. When he was admitted QT was 521 and I did daily EKGs. On June 08 his QT was 559. I avoided drugs like azithromycin or Zofran. On June 09 his QT had come down to 454. But I am worried about his continued methadone use in the face of a prolonged QT. Hypokalemia was treated with supplementation. His hiatal hernia was treated with Protonix. Bradycardia is also an issue. During the day and in his sleep he his pulse would drop into the 40s. Pressure was on the low side but he was still making urine and asymptomatic. I would recommend that he be evaluated with a Zio patch to watch his rhythm. Whether its either bradycardia or his risk for V. tach, he should be monitored temporarily. Methadone may need to be adjusted or he may need a pacer. His stomach is very large and dilated and in his chest. I think it is leading to aspiration, reflux. And the stool burden with the reflux is causing the "someone in their smell" when he belches. He may have focal stercoral colitis causing the diffuse edema seen in the ascending and transverse colon. But he never had diarrhea while here. We have restarted his Creon for pancreatic insufficiency and we have strongly encouraged him to stay compliant with that. He has not taken Creon for several years now. Put him on probiotics. He will need to complete a few more days of Levaquin and Flagyl. He already has an appointment to see a internet project manager in August and we have filled out a records release form for him to send to the hospital to get these records sent to that internet project manager. I am discharging him on 10 units of Lantus plus the Flagyl, Levaquin, probiotics. At discharge temperature is 37.1. Heart rate 59. Supine 104/60. Sitting 111/66. Standing 108/65. Pulse goes from 59, to 66-76 respectively. Respirations are 16, he is 93% on room air. He is 129.8 pounds. He has chronic pain in his abdomen in the right upper quadrant and right mid quadrant of 3 or 4 that coincides with where his focal colitis is.He is a thin cachectic appearing white male looks older than stated age. Long hair, simmons. Neck is supple without JVD. Lungs have rhonchi in the mid lung montejo. Because of his stomach in his chest, you can hear his bowel sounds in his back. No tachypnea. Regular rate and rhythm. And abdomen that is soft, and he aches in the right upper quadrant and right mid abdomen but is not with any rebound or guarding. Extremities have severe muscle wasting. He is profoundly cachectic. No edema. Able to go from supine to sitting to standing without any assist. He is discharged in stable condition. Greater than 30 minutes was spent coordinating discharge This document was made in part using voice recognition software. While efforts are made to proofread this document, sound alike and grammatical errors may occur. - ALLERGIES Allergies/Adverse Reactions: Allergies Allergy/AdvReac Type Severity Reaction Status Date / Time shellfish derived Allergy Respiratory Verified 06/07/23 02:41 - MEDICATIONS Home Medications: Ambulatory Orders Medication Instructions Recorded Confirmed Omeprazole 20 mg PO DAILY 06/06/18 06/07/23 buPROPion [Wellbutrin Sr] 300 mg PO DAILY 06/06/18 06/07/23 Methadone [Methadone IntensoL] 120 mg PO DAILY 06/07/23 06/07/23 Insulin Degludec 10 unit SUBQ DAILY #0 06/10/23 06/08/23 Lipase/Protease/Amylase 5 cap PO TIDWM #450 cap 06/10/[address] [[address] 5,000/17,000/24,000 Skilled Nursing] No122/Iron/Folic Acid 1 each PO DAILY #100 tablet 06/10/23 [ Multi Tablet] levoFLOXacin [Levaquin] 500 mg PO DAILY #8 tab 06/10/23 metroNIDAZOLE [Flagyl] 500 mg PO TIDWM #12 tab 06/10/23 - LABS Result Diagrams: 06/10/23 08:22 06/10/23 08:22
--- NOTE | 2023-06-10 08:05 | Discharge Plan ---
Discharge Plan Problem Reviewed?: Yes Disposition: Home, Self Care Condition: Fair Prescriptions: metroNIDAZOLE [Flagyl] 500 mg PO TIDWM #12 tab levoFLOXacin [Levaquin] 500 mg PO DAILY #8 tab Lipase/Protease/Amylase [Pancrelipase Dr 5,000/17,000/24,000 Jail] 5 cap PO TIDWM #450 cap No122/Iron/Folic Acid [ Multi Tablet] 1 each PO DAILY #100 tablet Diet: Regular Activity Restrictions: Activity as Tolerated Shower Restrictions: No Driving Restrictions: No Health Concerns: You presented to the hospital with what we think was a seizure secondary to having a very, very low glucose. You have been having a lot of problems with your diet in the last month. Have not been able to eat as much and your sugars have been going down. You have had new problems with belching where the gas from your stomach smells really badly. Even though you were trying to lower your Lantus on your own, I do not think you lowered it enough and that resulted in the low blood sugar in the face of not eating enough. You then had a seizure. EMS brought you to the hospital and you also had circulatory shock. We made sure that you were not having a heart attack, stroke, internal bleeding to cause the shock. You required a medicine called Levophed which temporarily supports her blood pressure artificially. We did find her to have aspiration pneumonia. You may have aspirated during her seizure. We found you to have a very extremely large hiatal hernia that sits in your chest. You also had a focal colitis from where stool is sitting in your right colon causing pressure against your bowel. You shared with us that you do not take Creon in spite of your pancreatic insufficiency. Treatment for the pneumonia and the colitis consisted of antibiotics. Plan of Treatment: 1. Please follow-up with your primary care provider Estefania Levi in the next 1 to 2 weeks. 2. Make sure you start your Creon. We have called in a prescription for 5 capsules with each meal. It really does improve your bowel health and absorption of your food so that you can gain some weight. 3. Please make sure you keep your appointment with your GI specialist in July. They are going to need to look at you for your hiatal hernia and your focal colitis. 4. Please lower your Lantus to 10 units at night. Although you had been lowering it on your own, it was not fast enough and that resulted in the low blood sugar. You could always increase your Lantus at night if your sugars are uncontrolled. 5. As part of your nutritional health, start taking a vitamin to get all your B12 vitamins, and iron. If you are not able to absorb that very well, your religion department chair may give you different prescription Care Goals: 1. To get his diabetes under control in the face of decreasing food intake 2. To get his gastroenterology problems under control as well Assessment: Patient is alert, oriented to person place and situation. Already has plans for follow-up and appears motivated to get better Additional Instructions or Follow Up instructions: You were seen in the emergency department for low blood sugar. Please follow-up with your primary care provider and return to the emergency department if you have any new or worsening symptoms or other concerns. No Smoking: If you smoke, Please STOP! Call for help.
[2023-06-10] MEDS: LIPASE/PROTEASE/AMYLASE CAPSULE PO SCH (08:16)
[2023-06-10] MEDS: metroNIDAZOLE 250 MG TABLET PO SCH (08:18)
[2023-06-10] MEDS: buPROPion XL 150 MG TABLET PO SCH (08:18)
[2023-06-10] MEDS: CALCIUM CARBONATE CHEW 500 MG TABLET PO SCH (08:19)
[2023-06-10] MEDS: METHADONE 50 MG/5 ML ORAL SYRINGE PO SCH (08:19)
[2023-06-10] MEDS: PRENATAL VITAMIN TABLET PO SCH (08:19)
[2023-06-10] MEDS: NICOTINE 14 MG PATCH TOP SCH (08:20)
[2023-06-10] MEDS: DOCUSATE SODIUM 250 MG CAPSULE PO SCH (08:20)
[2023-06-10] MEDS: polyethylene glycoL 3350 17 GM PACKET PO SCH (08:21)
[2023-06-10] MEDS: SENNA 8.6 MG TABLET PO SCH (08:21)
[2023-06-10 08:32] LABS: BASOPHILS % (AUTO) 0.3 %; EOSINOPHILS # (AUTO) 0.1 10^3/uL (0.0-0.7); EOSINOPHILS % (AUTO) 2.5 %; HCT - HEMATOCRIT 29.7 % (42.0-52.0); LYMPHOCYTES # (AUTO) 0.8 10^3/uL (1.5-3.5); LYMPHOCYTES % (AUTO) 18.9 %; MEAN CORPUSCULAR HEMOGLOBIN 29.7 pg (27.0-31.0); MEAN CORPUSCULAR HGB CONC 33.7 g/dL (32.0-36.0); MEAN CORPUSCULAR VOLUME 88.1 fL (80.0-94.0); MEAN PLATELET VOLUME 10.1 fL (7.4-11.4); MONOCYTES # (AUTO) 0.4 10^3/uL (0.0-1.0); MONOCYTES % (AUTO) 10.4 %; NEUTROPHILS # (AUTO) 2.7 10^3/uL (1.5-6.6); NEUTROPHILS % (AUTO) 67.1 %; PLT - PLATELET COUNT 103 10^3/uL (130-450); RED BLOOD COUNT 3.37 10^6/uL (4.70-6.10); RED CELL DISTRIBUTION WIDTH 13.2 % (12.0-15.0)
[2023-06-10 08:43] LABS: CALCIUM 8.8 mg/dL (8.5-10.3); CREATININE 0.5 mg/dL (0.6-1.3); POTASSIUM 4.1 mmol/L (3.5-4.5)
[2023-06-10] MEDS ORDERED: levoFLOXacin 250 MG TABLET PO SCH (09:00)
== END 2023-06-10 09:45 | disposition home or self-care (01) | DRG 177 ==
LOC: EDUNIT# → ED 02:31 → ICU 11:40 → MS2 06-09 15:15
PROVIDERS: ADMIT Specialist; ATTEND Specialist
DX: J69.0 Pneumonitis due to inhalation of food and vomit (principal); R57.8 Other shock; R64 Cachexia; K86.0 Alcohol-induced chronic pancreatitis; Z68.1 Body mass index [BMI] 19.9 or less, adult; E13.649 Other specified diabetes mellitus with hypoglycemia without coma; R56.9 Unspecified convulsions; G89.4 Chronic pain syndrome; R94.31 Abnormal electrocardiogram [ECG] [EKG]; E87.6 Hypokalemia; K44.9 Diaphragmatic hernia without obstruction or gangrene; K21.9 Gastro-esophageal reflux disease without esophagitis; K86.89 Other specified diseases of pancreas; K52.89 Other specified noninfective gastroenteritis and colitis; I86.4 Gastric varices; N32.89 Other specified disorders of bladder; R00.1 Bradycardia, unspecified; R79.89 Other specified abnormal findings of blood chemistry; E78.00 Pure hypercholesterolemia, unspecified; H54.7 Unspecified visual loss; F32.A Depression, unspecified; M06.9 Rheumatoid arthritis, unspecified; F17.200 Nicotine dependence, unspecified, uncomplicated; I95.9 Hypotension, unspecified; Z79.4 Long term (current) use of insulin; Z79.891 Long term (current) use of opiate analgesic; Z79.899 Other long term (current) drug therapy; Z86.718 Personal history of other venous thrombosis and embolism; Z87.898 Personal history of other specified conditions; Z90.49 Acquired absence of other specified parts of digestive tract
CPT/HCPCS: 36415; 36556; 70450; 71045; 71046; 71260; 74177; 80048; 80053; 82009; 82306; 82330; 82607; 82803; 83540; 83605; 83615; 83690; 83735; 84100; 84132; 84443; 84466; 84484; 85025; 85045; 87040; 87150; 93005; 96361; 96365; 96366; 96368; 96375; 99291; A9270; J1815; J3370; Q9967; 81002

== ENCOUNTER 2023-11-27 20:35 | Emergency (ER) | payer OTHER ==
[2023-11-27 21:08] LABS: BASOPHILS # (AUTO) 0.1 10^3/uL (0.0-0.1); BASOPHILS % (AUTO) 0.4 %; EOSINOPHILS % (AUTO) 0.1 %; HCT - HEMATOCRIT 32.4 % (42.0-52.0); HGB - HEMOGLOBIN 10.9 g/dL (14.0-18.0); LYMPHOCYTES # (AUTO) 0.4 10^3/uL (1.5-3.5); LYMPHOCYTES % (AUTO) 3.2 %; MEAN CORPUSCULAR HEMOGLOBIN 31.2 pg (27.0-31.0); MEAN CORPUSCULAR HGB CONC 33.6 g/dL (32.0-36.0); MEAN CORPUSCULAR VOLUME 92.8 fL (80.0-94.0); MEAN PLATELET VOLUME 11.3 fL (7.4-11.4); MONOCYTES # (AUTO) 0.4 10^3/uL (0.0-1.0); MONOCYTES % (AUTO) 3.8 %; NEUTROPHILS # (AUTO) 10.5 10^3/uL (1.5-6.6); NEUTROPHILS % (AUTO) 92.1 %; PLT - PLATELET COUNT 127 10^3/uL (130-450); RED BLOOD COUNT 3.49 10^6/uL (4.70-6.10); RED CELL DISTRIBUTION WIDTH 15.3 % (12.0-15.0); WHITE BLOOD COUNT 11.4 x10^3/uL (4.8-10.8)
[2023-11-27 21:20] LABS: ALBUMIN 3.5 g/dL (3.2-5.5); ALBUMIN/GLOBULIN RATIO 0.9 (1.0-2.2); ALKALINE PHOSPHATASE 1256 IU/L (42-121); ALT ALANINE AMINOTRANSFERASE 47 IU/L (10-60); AST ASPARTATE AMINOTRANSFERASE 56 IU/L (10-42); BUN - BLOOD UREA NITROGEN 17 mg/dL (6-20); CALCIUM 9.3 mg/dL (8.5-10.3); CARBON DIOXIDE - CO2 28 mmol/L (21-32); CHLORIDE 90 mmol/L (101-111); CREATININE 0.7 mg/dL (0.6-1.3); GFR - MDRD 119 (>89); GLUCOSE 244 mg/dL (74-104); LIPASE < 10 U/L (11-82); POTASSIUM 4.2 mmol/L (3.5-4.5); SODIUM 127 mmol/L (135-145); TOTAL PROTEIN 7.6 g/dL (6.4-8.9)
--- NOTE | 2023-11-27 23:03 | ED Physician Documentation ---
PD HPI ABD PAIN - Stated complaint Stated Complaint: ABD PX/VOMIT - Chief complaint Chief Complaint: Abd Pain - History obtained from History obtained from: Patient - Additional information Additional information: HPI from patient. Patient complains of nausea x 3 days, associated with vomiting this evening. He says he vomited 7 or 8 times since the vomiting started this evening. He also has had 2 to 3 days of abdominal pain, predominantly across the upper abdomen, waxing and waning without ameliorating factors. His nausea/vomiting and his abdominal pain are all exacerbated with movement and p.o. intake. He denies fevers. He says he has not drank any alcohol for at least 6 and half years. Past surgical history includes cholecystectomy and past medical history includes pancreatitis. Review of Systems Constitutional: denies: Fever, Chills, Sweats Cardiac: reports: Reviewed and negative Respiratory: reports: Reviewed and negative GI: reports: Abdominal Pain, Nausea, Vomiting. denies: Abdominal Swelling, Constipation, Diarrhea, Hematemesis, Bloody / black stool PD PAST MEDICAL HISTORY - Past Medical History Cardiovascular: High cholesterol, Deep vein thrombosis Respiratory: None, Shortness of breath, Other Neuro: None Endocrine/Autoimmune: Type 1 diabetes, Other GI: GERD, Hiatal hernia, Chronic constipation, Pancreatitis : Retention, Nocturia HEENT: Chronic vision loss Psych: Depression Musculoskeletal: Rheumatoid arthritis Derm: None - Past Surgical History Past Surgical History: Yes General: Cholecystectomy, Other Ortho: Other Derm: Other - Present Medications Home Medications: Ambulatory Orders Medication Instructions Recorded Confirmed Omeprazole 20 mg PO DAILY 06/06/18 11/28/23 buPROPion [Wellbutrin Sr] 300 mg PO DAILY 06/06/18 11/28/23 Methadone [Methadone IntensoL] 120 mg PO DAILY 06/07/23 11/28/23 No122/Iron/Folic Acid 1 each PO DAILY #100 tablet 06/10/23 11/28/23 [ Multi Tablet] Ferrous Sulfate 1 tab PO DAILY 11/28/23 11/28/23 Insulin Degludec 47 unit SUBQ DAILY 11/28/23 11/28/23 Omeprazole 40 mg PO DAILY #14 cap 11/28/23 Ondansetron Odt [Zofran Odt] 4 mg TL Q6H PRN #14 tablet 11/28/23 - Allergies Allergies/Adverse Reactions: Allergies Allergy/AdvReac Type Severity Reaction Status Date / Time shellfish derived Allergy Respiratory Verified 11/27/23 20:46 - Social History Does the pt smoke?: Yes Smoking Status: Current every day smoker Does the pt drink ETOH?: No Does the pt have substance abuse?: No - Immunizations Immunizations are current?: Yes - POLST Patient has POLST: No POLST Status: Full Code (However he only wants CPR. He does not want intubation.) PD ED PE NORMAL - Vitals Vital signs reviewed: Yes - General General: Alert and oriented X 3, Well developed/nourished, Other (appears to be in mild-moderate painful discomfort) - Cardiac Cardiac: RRR, No murmur - Respiratory Respiratory: No respiratory distress, Clear bilaterally - Abdomen Abdomen: Soft, Non distended, Other (TTP across upper abdomen without guarding or rebound) - Back Back: No CVA TTP - Derm Derm: Normal color, Warm and dry - Extremities Extremities: No edema - Neuro Neuro: Alert and oriented X 3 Results - Vitals Vitals: Vital Signs - 24 hr 11/27/23 11/27/23 11/27/23 20:40 22:03 23:00 Temperature 36.8 C Heart Rate 81 82 88 Respiratory 16 16 16 Rate Blood Pressure 133/70 H 128/71 118/72 O2 Saturation 98 95 95 11/28/23 11/28/23 11/28/23 00:30 02:00 04:00 Temperature Heart Rate 81 85 79 Respiratory 16 14 16 Rate Blood Pressure 110/68 102/64 99/65 O2 Saturation 94 94 96 Oxygen O2 Source Room air - Labs Labs: Laboratory Tests 11/27/23 11/27/23 11/27/23 21:02 21:02 21:05 WBC 11.4 H RBC 3.49 L Hgb 10.9 L Hct 32.4 L MCV 92.8 MCH 31.2 H MCHC 33.6 RDW 15.3 H Plt Count 127 L MPV 11.3 Neut # (Auto) 10.5 H Lymph # (Auto) 0.4 L Crook # (Auto) 0.4 Eos # (Auto) 0.0 Baso # (Auto) 0.1 Absolute Nucleated RBC 0.00 Nucleated RBC % 0.0 Sodium 127 L Potassium 4.2 Chloride 90 L Carbon Dioxide 28 Anion Gap 9.0 BUN 17 Creatinine 0.7 Estimated GFR (MDRD) 119 Glucose 244 H Calcium 9.3 Total Bilirubin 5.0 H AST 56 H ALT 47 Alkaline Phosphatase 1256 H Total Protein 7.6 Albumin 3.5 Globulin 4.1 Albumin/Globulin Ratio 0.9 L Lipase < 10 L Ethyl Alcohol < 10.0 - Rads (name of study) CT A/P with IV contrast Relevant Findings:: Prelim report reviewed, See rad report PD Medical Decision Making - ED course Complexity details: reviewed old records, reviewed results, re-evaluated patient, considered differential, d/w patient ED course: Mild leukocytosis (11.4) with mild anemia (10.9 hgb), mild thrombocytopenia (127). Hyponatremia (127) and hyperglycemia (244) also noted. Normal lipase. Abnormal LFTs include hyperbilirubinemia (5.0), elevated alkaline phosphatase (1256). Patient is given 2 liters NS, 1 mg IV dilaudid with one repeat dose, 4mg IV zofran, 25 mg IV phenergan, [address] A/P with several abnormalities, most notably extensive gastric wall edema s/o severe gastritis. Large hiatal hernia noted. Questionable pancreatic inflammation could be due to pancreatitis despite normal lipase. Results d/w patient. Symptomatic relief was eventually achieved with the IV fluids and medications as noted. Patient is comfortable with d/c. Return precautions reviewed, advised to contact PCP to arrange for next available appointment for follow up/reevaluation. Rx for omeprazole and zofran e-prescri bed to patient's pharmacy of choice Departure - Departure Disposition: 01 Home, Self Care Clinical Impression: Vomiting Qualifiers: Vomiting type: unspecified Nausea presence: with nausea Qualified Code(s): R11.2 - Nausea with vomiting, unspecified Gastritis Qualifiers: Gastritis type: unspecified gastritis Chronicity: unspecified Gastritis bleeding: without bleeding Qualified Code(s): K29.70 - Gastritis, unspecified, without bleeding Condition: Good Instructions: ED PUD Vs Gastritis Follow-Up: Estefania Levi ARNP [Primary Care Provider] - Within 1 week Prescriptions: Omeprazole 40 mg PO DAILY #14 cap Ondansetron Odt [Zofran Odt] 4 mg TL Q6H PRN #14 tablet PRN Reason: Nausea / Vomiting Comments: There were a number of abnormalities on tonight's test, none of which were to a concerning extent. Your white blood cell count was mildly above the normal range (11.4), with your red cell count (10.9) and platelets (127) slightly below normal range. Your sodium level was low (127) and your blood sugar was high (244). You also had some abnormalities of your liver function tests, specifically elevated bilirubin (5.0) and alkaline phosphatase (1256). I am including these results in these discharge sheets so that you will have the results handy when you follow-up with your primary care provider. The CT scan of your abdomen was most notable for marked swelling of your stomach wall (and much of your stomach is in your chest, a condition called hiatal hernia). While the specific cause of this finding (edema/swelling of your stomach wall) cannot be determined at this time, one of the more likely explanations would be irritation of the stomach lining, a condition generally referred to as gastritis. There are many different causes of gastritis, but the symptoms typically are nausea, vomiting, and upper abdominal pain. As we discussed, there was also there were also questionable/possible mild inflammatory findings in your pancreas; this might be due to a recurrence/flare of your pancreatitis. You should contact your primary care provider this morning when their office opens to arrange for the next available appointment for follow-up/reevaluation. I have electronically submitted prescriptions for omeprazole (acid-blocking medication) and ondansetron (antinausea medication) to the [facility] pharmacy in [place]. Discharge Date/Time: 11/28/23 04:05
[2023-11-27] MEDS: SODIUM CHLORIDE 0.9% 1,000 ML IV STA ×2 (23:15)
[2023-11-27] MEDS ORDERED: iohexoL-300 100 ML VIAL ONE (23:32)
[2023-11-27] MEDS: ONDANSETRON 4 MG/2 ML VIAL IVP STA (23:42)
[2023-11-27] MEDS: HYDROmorphone 1 MG/ML CARPUJECT IVP STA (23:43)
[2023-11-27] MEDS: PANTOPRAZOLE 40 MG VIAL IVP STA (23:58)
[2023-11-28] MEDS: iohexoL-300 100 ML VIAL IVP ONE (00:02)
--- NOTE | 2023-11-28 00:17 | CT Report ---
PROCEDURE: Abdomen/Pelvis W INDICATIONS: abd. pain CONTRAST: Omni 300, 100mls TECHNIQUE: After the administration of intravenous contrast, a CT scan of the abdomen and pelvis was performed. Images were recorded and evaluated at appropriate window settings. Reformats: coronal and sagittal. F or radiation dose reduction, the following was used: automated exposure control, adjustment of mA and /or kV according to patient size. COMPARISON: None. FINDINGS: Image quality: Diagnostic. Lower chest: Large hiatal hernia is seen with adjacent right basilar atelectasis. Dependent atelectas is in posterior aspect of left lung base is also seen. Heart size is normal, no pericardial effusion. . Liver: No solid mass. There is hepatomegaly. Gallbladder: Surgically absent. Biliary tree: Mild intrahepatic biliary ductal dilatation and small amount of pneumobilia is seen. Co mmon bile duct is normal in size for postcholecystectomy patient. Spleen: There is splenomegaly. Pancreas: There is atrophic pancreas with full side of pancreatic parenchymal calcifications suggesti ve of sequela from prior pancreatitis. Questionable inflammatory changes are noted in head and uncina te process of pancreas. No peripancreatic fluid collection. Adrenals: No adrenal nodule. Kidneys and ureters: No hydronephrosis. No renal cystic lesion which requires follow up. No solid mas s. Stomach, bowel and peritoneum: There is marked wall thickening involving stomach with significant wal l edema worsened since previous study. No gross small bowel: Wall thickening. No abscess collection. No free fluid of free air. Colonic diverticulosis is seen without evidence of acute diverticulitis. Lymph nodes: No central or retroperitoneal adenopathy. Vessels: No infrarenal aortic aneurysm. Previously described portal vein occlusion with cavernous tra nsformation and development of periportal varicosities unchanged from previous study. PELVIS Reproductive organs: Unremarkable. Bladder: No abnormal wall thickening, accounting for underdistention. Pelvic lymph nodes: No pelvic adenopathy by size criteria. Bones: No aggressive osseous abnormality. Other: No significant ventral or inguinal hernia. IMPRESSION: 1. Large hiatal hernia with extensive edematous gastric wall with significant wall thickening concern ing for extensive gastritis. 2. No gross small bowel and colon wall thickening is seen. No abscess collection. No free fluid of fr ee air. 3. Small bibasilar infiltrate versus atelectasis. 4. Postsurgical changes from cholecystectomy with pneumobilia and mild intrahepatic biliary ductal di latation. No significant, bowel dilatation. 5. Questionable inflammatory changes involving pancreatic head and uncinate process and clinical jimbo elation for possible pancreatitis. Sequela from prior episodes of pancreatitis with parenchymal calci fication. 6. Mild splenomegaly unchanged from prior study. 7. Suggestion of portal vein thrombosis with cavernous transformation and development of varicosities unchanged from prior study. Reviewed by: Da Ibarra MD on 11/28/2023 12:16 AM PDT Approved by: Da Ibarra MD on 11/28/2023 12:16 AM PDT Station ID: [id number]
[2023-11-28] MEDS ORDERED: PROMETHAZINE 25 MG/1 ML VIAL ONE (01:34)
[2023-11-28] MEDS: HYDROmorphone 1 MG/ML CARPUJECT IVP STA (01:41)
[2023-11-28] MEDS: PROMETHAZINE INJ 25 MG in SODIUM CHLORIDE 0.9% 50 ML IV STA (01:43)
[2023-11-28] MEDS: SODIUM CHLORIDE 0.9% 1,000 ML IV STA (02:12)
[2023-11-28 04:17] VITALS: BP 99/65; O2SAT 96
== END 2023-11-28 04:05 | disposition home or self-care (01) ==
LOC: ED 20:35
DX: K29.70 Gastritis, unspecified, without bleeding (principal); E10.65 Type 1 diabetes mellitus with hyperglycemia; Z79.4 Long term (current) use of insulin; D72.829 Elevated white blood cell count, unspecified; D64.9 Anemia, unspecified; E87.1 Hypo-osmolality and hyponatremia; R94.5 Abnormal results of liver function studies; K44.9 Diaphragmatic hernia without obstruction or gangrene; Z87.19 Personal history of other diseases of the digestive system; F17.200 Nicotine dependence, unspecified, uncomplicated
CPT/HCPCS: 36415; 74177; 80053; 82077; 83690; 85025; 96361; 96365; 96375; 96376; 99284; 99285; J1170; J7040; Q9967

== ENCOUNTER 2023-12-10 05:10 | Outpatient (CLI) | payer SELFPAY | END 2023-12-10 23:59 | disposition critical access hospital (66) | LOC: EMS 05:10 | DX: R41.82 Altered mental status, unspecified (principal); E11.649 Type 2 diabetes mellitus with hypoglycemia without coma; Z79.4 Long term (current) use of insulin | CPT/HCPCS: A0425; A0427 ==

== ENCOUNTER 2023-12-10 05:32 | Emergency (ER) | payer SELFPAY ==
[2023-12-10] MEDS: DEXTROSE 50% ABBOJECT 25 GM/50 ML SYRINGE IVP STA (05:38)
[2023-12-10] MEDS: SODIUM CHLORIDE 0.9% 2,000 ML IV STA (05:53)
[2023-12-10 06:02] LABS: HGB - HEMOGLOBIN 9.4 g/dL (14.0-18.0); LYMPHOCYTES % (AUTO) 10.5 %; MEAN CORPUSCULAR HEMOGLOBIN 30.7 pg (27.0-31.0); MEAN CORPUSCULAR HGB CONC 32.4 g/dL (32.0-36.0); MEAN CORPUSCULAR VOLUME 94.8 fL (80.0-94.0); MEAN PLATELET VOLUME 9.8 fL (7.4-11.4); MONOCYTES % (AUTO) 0.8 %; NEUTROPHILS % (AUTO) 88.7 %; PLT - PLATELET COUNT 149 10^3/uL (130-450); RED BLOOD COUNT 3.06 10^6/uL (4.70-6.10); WHITE BLOOD COUNT 2.6 x10^3/uL (4.8-10.8)
[2023-12-10] MEDS: NOREPINEPHRINE/0.9 % NS 8 MG/250 ML BAG IV SCH (06:07)
[2023-12-10 06:30] LABS: KETONES, SERUM (ACETEST) NEGATIVE (NEGATIVE)
[2023-12-10] MEDS ORDERED: iohexoL-300 100 ML VIAL ONE (06:56)
--- NOTE | 2023-12-10 06:56 | ED Physician Documentation ---
History of Present Illness - Stated complaint Stated Complaint: HYPOGLYCEMIA - Chief complaint Chief Complaint: General - History obtained from History obtained from: Family, EMS - Additonal information Additional information: Patient is a 53-year-old male who has a history of chronic pancreatitis, Diabetes, large hiatal hernia Presenting for evaluation of hypoglycemia. EMS report is quite limited and they report that Patient became less responsive at home. When they checked his blood sugar it was low and started D10. However on arrival here it appears that the D10 infusion is clamped and he did not receive this medication. Patient is not able to provide any history. is at the bedside and states that he has been ill for the past week complaining of abdominal pain. This morning he became less responsive.She checked his blood sugar and noted that it was low. She tried to give him honey. She called EMS. They told her to start chest compressions as he was not responsive. She states that she only did 2 compressions. He was seen on 11/26 in the emergency department and told he may have early findings of pancreatitis. He has not been getting out of bed much recently and also has not been eating or drinking very much.On arrival patient is noted to be tachycardic and hypotensive. Review of Systems Unable to obtain: Confused PD PAST MEDICAL HISTORY - Past Medical History Cardiovascular: High cholesterol, Deep vein thrombosis Respiratory: None, Shortness of breath, Other Neuro: None Endocrine/Autoimmune: Type 1 diabetes, Other GI: GERD, Hiatal hernia, Chronic constipation, Pancreatitis : Retention, Nocturia HEENT: Chronic vision loss Psych: Depression Musculoskeletal: Rheumatoid arthritis Derm: None - Past Surgical History Past Surgical History: Yes General: Cholecystectomy, Other Ortho: Other Derm: Other - Present Medications Home Medications: Ambulatory Orders Medication Instructions Recorded Confirmed Omeprazole 20 mg PO DAILY 06/06/18 11/28/23 buPROPion [Wellbutrin Sr] 300 mg PO DAILY 06/06/18 11/28/23 Methadone [Methadone IntensoL] 120 mg PO DAILY 06/07/23 11/28/23 No122/Iron/Folic Acid 1 each PO DAILY #100 tablet 06/10/23 11/28/23 [ Multi Tablet] Ferrous Sulfate 1 tab PO DAILY 11/28/23 11/28/23 Insulin Degludec 47 unit SUBQ DAILY 11/28/23 11/28/23 Omeprazole 40 mg PO DAILY #14 cap 11/28/23 Ondansetron Odt [Zofran Odt] 4 mg TL Q6H PRN #14 tablet 11/28/23 - Allergies Allergies/Adverse Reactions: Allergies Allergy/AdvReac Type Severity Reaction Status Date / Time shellfish derived Allergy Respiratory Verified 12/10/23 05:47 - Social History Does the pt smoke?: Yes Smoking Status: Current every day smoker Does the pt drink ETOH?: No Does the pt have substance abuse?: No - Immunizations Immunizations are current?: Yes - POLST Patient has POLST: No POLST Status: Full Code (However he only wants CPR. He does not want intubation.) PD ED PE NORMAL - General General: Other (Cachectic, frail-appearing, distressed). No: Alert and oriented X 3 (Alert and oriented to person) - HEENT HEENT: Atraumatic, PERRL, Pharynx benign. No: Moist mucous membranes - Neck Neck: Supple, no meningeal sign - Cardiac Cardiac: Strong equal pulses, Other (Tachycardic, regular rhythm) - Respiratory Respiratory: Other (Tachypneic, coarse breath sounds bilaterally) - Abdomen Abdomen: Normal bowel sounds, Soft, Non distended, Other (Upper abdominal tenderness) - Derm Derm: Warm and dry - Extremities Extremities: No edema - Neuro Neuro: No motor deficit. No: Alert and oriented X 3 Results - Vitals Vitals: Vital Signs - 24 hr 12/10/23 12/10/23 12/10/23 05:43 05:46 06:01 Temperature Heart Rate 126 H 118 H 125 H Respiratory 31 H 29 H 34 H Rate Blood Pressure 83/28 L 81/38 L 86/34 L O2 Saturation 100 100 96 If not protocol 4 4 : Oxygen Flow, liters/minute 12/10/23 12/10/23 12/10/23 06:16 06:31 06:45 Temperature 35.4 C L Heart Rate 120 H 120 H 119 H Respiratory 33 H 28 H 28 H Rate Blood Pressure 90/35 L 88/35 L 110/41 L O2 Saturation 100 100 98 If not protocol 4 4 4 : Oxygen Flow, liters/minute 12/10/23 12/10/23 07:00 07:15 Temperature 35.9 C L Heart Rate 109 H 109 H Respiratory 23 30 H Rate Blood Pressure 112/58 L 110/58 L O2 Saturation 99 100 If not protocol 4 : Oxygen Flow, liters/minute Oxygen O2 Source Nasal cannula - EKG (time done) 0601 EKG releavant findings:: EKG personally interpreted by author of this note. Relevant findings are: Rate 120, sinus tachycardia, no STEMI, QTc 526 - Labs Labs: Laboratory Tests 12/10/23 12/10/23 12/10/23 05:34 05:49 05:49 WBC 2.6 L RBC 3.06 L Hgb 9.4 L Hct 29.0 L MCV 94.8 H MCH 30.7 MCHC 32.4 RDW 14.0 Plt Count 149 MPV 9.8 VBG pH VBG pCO2 VBG pO2 VBG HCO3 VBG Total CO2 VBG O2 Saturation VBG Base Excess POC Whole Bld Glucose 41 L* Lactic Acid Troponin I High Sens Nasal Adenovirus (PCR) Nasal B. parapertussis DNA (PCR) Nasal Coronavir 229E PCR Nasal Coronavir HKU1 PCR Nasal Coronavir NL63 PCR Nasal Coronavir OC43 PCR Nasal Enterovir/Rhinovir PCR Nasal Influenza B PCR Nasal Influenza A PCR Nasal Parainfluen 1 PCR Nasal Parainfluen 2 PCR Nasal Parainfluen 3 PCR Nasal Parainfluen 4 PCR Nasal RSV (PCR) Nasal B.pertussis DNA PCR Nasal C.pneumoniae (PCR) [place] Human Metapneumo PCR Nasal M.pneumoniae (PCR) Nasal SARS-CoV-2 (PCR) Serum Ketones NEGATIVE 12/10/23 12/10/23 12/10/23 05:49 05:49 05:54 WBC RBC Hgb Hct MCV MCH MCHC RDW Plt Count MPV VBG pH VBG pCO2 VBG pO2 VBG HCO3 VBG Total CO2 VBG O2 Saturation VBG Base Excess POC Whole Bld Glucose 223 H Lactic Acid > 10.0 H* Troponin I High Sens 52.5 H* Nasal Adenovirus (PCR) Nasal B. parapertussis DNA (PCR) Nasal Coronavir 229E PCR Nasal Coronavir HKU1 PCR Nasal Coronavir NL63 PCR Nasal Coronavir OC43 PCR Nasal Enterovir/Rhinovir PCR Nasal Influenza B PCR Nasal Influenza A PCR Nasal Parainfluen 1 PCR Nasal Parainfluen 2 PCR Nasal Parainfluen 3 PCR Nasal Parainfluen 4 PCR Nasal RSV (PCR) Nasal B.pertussis DNA PCR Nasal C.pneumoniae (PCR) [place] Human Metapneumo PCR Nasal M.pneumoniae (PCR) Nasal SARS-CoV-2 (PCR) Serum Ketones 12/10/23 12/10/23 06:00 06:45 WBC RBC Hgb Hct MCV MCH MCHC RDW Plt Count MPV VBG pH 7.269 L VBG pCO2 28.9 L VBG pO2 54.2 H VBG HCO3 12.9 L VBG Total CO2 13.8 L VBG O2 Saturation 85.7 H VBG Base Excess -12.7 L POC Whole Bld Glucose Lactic Acid Troponin I High Sens Nasal Adenovirus (PCR) NOT DETECTED Nasal B. parapertussis DNA (PCR) NOT DETECTED Nasal Coronavir 229E PCR NOT DETECTED Nasal Coronavir HKU1 PCR NOT DETECTED Nasal Coronavir NL63 PCR NOT DETECTED Nasal Coronavir OC43 PCR NOT DETECTED Nasal Enterovir/Rhinovir PCR NOT DETECTED Nasal Influenza B PCR NOT DETECTED Nasal Influenza A PCR NOT DETECTED Nasal Parainfluen 1 PCR NOT DETECTED Nasal Parainfluen 2 PCR NOT DETECTED Nasal Parainfluen 3 PCR NOT DETECTED Nasal Parainfluen 4 PCR NOT DETECTED Nasal RSV (PCR) NOT DETECTED Nasal B.pertussis DNA PCR NOT DETECTED Nasal C.pneumoniae (PCR) NOT DETECTED [place] Human Metapneumo PCR NOT DETECTED Nasal M.pneumoniae (PCR) NOT DETECTED Nasal SARS-CoV-2 (PCR) NOT DETECTED Serum Ketones Procedures - Central Line - Major Central Line Preparation: Consent Obtained (Verbal from ), Time out completed, Ultrasound used, Sterile prep and drape Central line location: Right Femoral (Pt unable to keep head still and too tachypneic for safe IJ access) Central line type: Triple lumen Central line aftercare: Chlorhexidine disc placed, Secured, No complications, Pt tolerated well PD Medical Decision Making - ED course Complexity details: reviewed results, re-evaluated patient, d/w family ED course: Patient is a 53-year-old male presenting for evaluation of hypoglycemia and altered mental status with recent increased weakness. On arrival he is found to also be hypotensive and tachycardic. Patient was given D50 for the hypoglycemia. 2 L of IV fluids were ordered. Sepsis labs along with VBG and ketones were ordered. EKG demonstrates sinus tachycardia, QTc 526. Patient remained hypotensive despite initial fluid resuscitation so was quickly started on Levophed and central line was placed.CT head, chest, abdomen and pelvis were ordered. Patient had ICU admission in April with similar presentation. Will start on Zosyn to cover for possible aspiration pneumonia versus abdominal pathology. Labs and imaging are pending at time of shift change and patient is signed out to Dr. Flores. - Critical Care Time(min): 35 Time Includes: Direct patient care, Review records, Reassess patient Departure - Departure Clinical Impression: Septic shock, Hypoglycemia Condition: Critical Forms: PCP List
[2023-12-10] MEDS: ONDANSETRON 4 MG/2 ML VIAL IVP STA (06:59)
[2023-12-10 07:02] LABS: VBG BASE EXCESS -12.7 mmol/L (-2 - +2); VBG HCO3 12.9 mmol/L (23-28); VBG PCO2 28.9 mmHg (41-51); VBG PH 7.269 (7.31-7.41); VBG PO2 54.2 mmHg (25-47); VBG TOTAL CO2 13.8 mmol/L (24-29)
[2023-12-10 07:02] LABS: B. PARAPERTUSSIS- RESP PCR PAN NOT DETECTED; B. PERTUSSIS- RESP PCR PANEL NOT DETECTED; C. PNEUMONIAE- RESP PCR PANEL NOT DETECTED; CORONAVIRUS 229E-RESP PCR NOT DETECTED; CORONAVIRUS HKU1-RESP PCR NOT DETECTED; CORONAVIRUS NL63-RESP PCR NOT DETECTED; CORONAVIRUS OC43-RESP PCR NOT DETECTED; HUMAN METAPNEUMOVIRUS NOT DETECTED; INFLUENZA A- RESP PCR PANEL NOT DETECTED; INFLUENZA B - RESP PCR PANEL NOT DETECTED; M. PNEUMONIAE- RESP PCR PANEL NOT DETECTED; PARAINFLUENZA VIRUS 1 NOT DETECTED; PARAINFLUENZA VIRUS 2 NOT DETECTED; PARAINFLUENZA VIRUS 3 NOT DETECTED; PARAINFLUENZA VIRUS 4 NOT DETECTED; RHINOVIRUS/ENTEROVIRUS NOT DETECTED; RSV- RESP PCR PANEL NOT DETECTED; SARS-CoV-2 -RESP PCR PANEL NOT DETECTED
[2023-12-10 07:03] LABS: ABNORMAL LYMPHS % (MANUAL) 0 %
[2023-12-10 07:03] LABS: VBG OXYGEN SATURATION 85.7 % (60-80)
[2023-12-10 07:20] LABS: ACETAMINOPHEN 0.2 ug/mL; ETOH - ETHANOL < 10.0 mg/dL
[2023-12-10 07:22] LABS: ALBUMIN 2.4 g/dL (3.2-5.5); ALBUMIN/GLOBULIN RATIO 0.7 (1.0-2.2); ALKALINE PHOSPHATASE 1113 IU/L (42-121); ALT ALANINE AMINOTRANSFERASE 23 IU/L (10-60); AST ASPARTATE AMINOTRANSFERASE 44 IU/L (10-42); BILIRUBIN,TOTAL 2.2 mg/dL (0.2-1.0); BUN - BLOOD UREA NITROGEN 20 mg/dL (6-20); CALCIUM 8.4 mg/dL (8.5-10.3); CARBON DIOXIDE - CO2 16 mmol/L (21-32); CHLORIDE 89 mmol/L (101-111); CREATININE 1.1 mg/dL (0.6-1.3); GFR - MDRD 71 (>89); GLUCOSE 217 mg/dL (74-104); LIPASE 10 U/L (11-82); MAGNESIUM 1.3 mg/dL (1.7-2.3); POTASSIUM 3.7 mmol/L (3.5-4.5); SALICYLATE < 1.5 mg/dL; SODIUM 125 mmol/L (135-145); TOTAL PROTEIN 5.9 g/dL (6.4-8.9)
[2023-12-10 07:45] LABS: BAND NEUTROPHILS % (MANUAL) 28 %; DIFFERENTIAL COMMENT MANUAL DIFFERENTIAL; LYMPHOCYTES # (MANUAL) 0.4 10^3/uL (1.5-3.5); LYMPHOCYTES % (MANUAL) 16 %; METAMYELOCYTES % (MANUAL) 5 %; MONOCYTES # (MANUAL) 0.1 10^3/uL (0.0-1.0); PLATELET ESTIMATE, MANUAL NORMAL (130-450,000) (NORMAL); PLATELET MORPHOLOGY 1+ GIANT PLATELETS (NORMAL); RBC MORPHOLOGY (MULTIPLE) 1+ HYPOCHROMASIA (NORMAL)
[2023-12-10] MEDS: SODIUM CHLORIDE 0.9% 1,000 ML IV STA ×2 (07:49→08:45)
[2023-12-10] MEDS: PIPERACILLIN/TAZOBACTAM 3.375 GM in SODIUM CHLORIDE 0.9% MINIBAG 100 ML IV STA (07:49)
[2023-12-10 07:57] LABS: BILIRUBIN,URINE NEGATIVE (NEGATIVE); GLUCOSE, URINE (UA) NEGATIVE (NEGATIVE); KETONES,URINE (UA) NEGATIVE (NEGATIVE); LEUKOCYTE ESTERASE, URINE NEGATIVE (NEGATIVE); NITRITE,URINE NEGATIVE (NEGATIVE); OCCULT BLOOD,URINE MODERATE (NEGATIVE); PH,URINE 7.5 PH (5.0-7.5); PROTEIN,URINE 100 mg/dL (NEGATIVE); UROBILINOGEN,URINE 1 (NORMAL) E.U./dL (NORMAL)
[2023-12-10 08:00] LABS: CLARITY,URINE CLEAR (CLEAR)
[2023-12-10 08:04] LABS: BACTERIA,URINE Rare /HPF (None Seen); RBC,URINE 0-5 /HPF (0-5); SQUAMOUS EPITHELIAL CELL,UR RARE Squamous (<= Few); WBC,URINE 0-3 /HPF (0-3)
[2023-12-10 08:07] LABS: AMPHETAMINE SCREEN,URINE NEGATIVE (NEGATIVE); BARBITURATE SCREEN,UR NEGATIVE (NEGATIVE); BENZODIAZEPINES SCREEN, URINE NEGATIVE (NEGATIVE); BUPRENORPHINE SCREEN, URINE NEGATIVE (NEGATIVE); COCAINE SCREEN URINE NEGATIVE (NEGATIVE); METHADONE SCREEN, URINE POSITIVE (NEGATIVE); METHAMPHETAMINES SCREEN, URINE NEGATIVE (NEGATIVE); OPIATE SCREEN, URINE NEGATIVE (NEGATIVE); OXYCODONE SCREEN, URINE NEGATIVE (NEGATIVE); THC CANNABINOID SCREEN, URINE NEGATIVE (NEGATIVE); TRICYCLIC ANTIDEPRESSANT,URINE NEGATIVE (NEGATIVE)
--- NOTE | 2023-12-10 08:12 | XRAY Report ---
PROCEDURE: Chest 1V INDICATIONS: shock TECHNIQUE: One view of the chest was acquired. COMPARISON: 06/09/2023. FINDINGS: Surgical changes and devices: None. Lungs and pleura: Streaky left basilar opacity. Mediastinum: Large hiatal hernia. Heart size is normal. Bones and chest wall: No suspicious bony lesions. Overlying soft tissues appear unremarkable. IMPRESSION: Streaky left basilar opacity, likely atelectasis. Findings are concordant with preliminary interpretation provided by [facility]. Reviewed by: Anibal Marley MD on 12/10/2023 8:10 AM PDT Approved by: Anibal Marley MD on 12/10/2023 8:10 AM PDT Station ID: [id number]
--- NOTE | 2023-12-10 08:22 | CT Report ---
PROCEDURE: Head WO INDICATIONS: AMS/shock TECHNIQUE: Noncontrast 4.5 mm thick angled axial sections acquired from the foramen magnum to the vertex. For r adiation dose reduction, the following was used: automated exposure control, adjustment of mA and/or kV according to patient size. COMPARISON: 06/07/2023. FINDINGS: Image quality: Excellent. CSF spaces: Basal cisterns are patent. No extra-axial fluid collections. Ventricles are normal in size and shape. Brain: No midline shift. No intracranial masses or hemorrhage. Jensen-white matter interface is norm al. Skull and face: Calvarium and visualized facial bones are intact, without suspicious lesions. Sinuses: Visualized sinuses and mastoids are clear. IMPRESSION: No acute intracranial pathology. Reviewed by: Constantin Dodd MD on 12/10/2023 8:21 AM PDT Approved by: Constantin Dodd MD on 12/10/2023 8:21 AM PDT Station ID: [id number]
--- NOTE | 2023-12-10 08:37 | CT Report ---
PROCEDURE: Chest W INDICATIONS: septic shock CONTRAST: Omni 300 100ml TECHNIQUE: After the administration of intravenous contrast, a CT scan of the chest was performed. Images were recorded and evaluated at appropriate window settings. Reformats: axial MIP of the chest, coronal and sagittal. For radiation dose reduction, the following was used: automated exposure control, adjustme nt of mA and/or kV according to patient size. COMPARISON: CT chest dated 06/07/2023, CT abdomen and pelvis from today, CT abdomen and pelvis dated 11/27/2023, FINDINGS: Image quality: Diagnostic. Chest wall and lower neck: No thyroid nodule which requires sonographic follow up. No breast mass. No axillary or supraclavicular adenopathy by size. Lungs and pleura: No consolidation. Compressive atelectasis on the right lower lobe secondary to very large hiatal hernia. No pleural effusions. No pneumothorax. No suspicious pulmonary nodules which r equire follow up. Mediastinum: Heart size is normal. No pericardial effusion. No large vessel abnormality. No mediastin al adenopathy by size criteria. Again noted is a very large hiatal hernia containing a markedly edema tous stomach. There is now a gastric wall abscess on image 59/3 measuring 5.9 x 1.7 cm. Reference alvina ge 59/3. The esophagus is dilated, containing a large amount of fluid within it to the level of the u pper thoracic esophagus. Bones: No aggressive osseous abnormality. Upper Abdomen: Please refer to the report regarding the abdomen and pelvis from the same date. Sanjuana barr, note is made of the presence of a large abscess collection immediately anterior to the stomach wit h associated free air. The collection measures approximately 9.0 x 9.7 cm. IMPRESSION: 1. Very large hiatal hernia containing stomach, as before. 2. In addition to the presence of marked gastric wall edema, there is now a gastric wall abscess. 3. There is perforation and a very large early abscess anterior to the stomach. Please refer to a renee parrish report for findings in the abdomen and pelvis from the same date. 4. Dilated esophagus filled with fluid to the upper thoracic esophagus, likely representing reflux. Above discussed with Jo Flores MD at the time of dictation on 12/10/2023 0833 hours. Reviewed by: Constantin Dodd MD on 12/10/2023 8:36 AM PDT Approved by: Constantin Dodd MD on 12/10/2023 8:36 AM PDT Station ID: [id number]
--- NOTE | 2023-12-10 08:45 | CT Report ---
PROCEDURE: Abdomen/Pelvis W INDICATIONS: septic shock CONTRAST: Omni 300 100ml TECHNIQUE: After the administration of intravenous contrast, a CT scan of the abdomen and pelvis was performed. Images were recorded and evaluated at appropriate window settings. Reformats: coronal and sagittal. F or radiation dose reduction, the following was used: automated exposure control, adjustment of mA and /or kV according to patient size. COMPARISON: CT chest from today, CT abdomen and pelvis dated 11/27/2023, CT chest dated 06/07/2023. FINDINGS: Image quality: Diagnostic. Lower chest: Again noted is a very large hiatal hernia containing a markedly edematous stomach which has now developed a gastric wall abscess which measures approximately 5.9 x 1.7 cm. There is a dilate d fluid-filled esophagus. There is compressive atelectasis on the right lower lobe, as before. Liver: Question development of an infiltrative hilar mass. Reference image 59 of series 3, in which a potential infiltrative lesion measuring approximately 3.2 cm is noted.. Gallbladder: Surgically absent Biliary tree: Biliary air, as before Spleen: Moderate to severe splenomegaly, as before Pancreas: Again noted is pancreatic atrophy with extensive parenchymal calcifications consistent with chronic pancreatitis. Adrenals: No adrenal nodule. Kidneys and ureters: No hydronephrosis. No renal cystic lesion which requires follow up. No solid mas s. Stomach, bowel and peritoneum: Markedly edematous stomach, most which is herniated into the chest, wi th development of a gastric wall abscess. Additionally, there is probable gastric perforation. There is a early abscess immediately anterior to the stomach measuring 8.6 x 9.1 cm on axial image 50 of se kurt 3. There is associated air tracking along the lateral segment of the left lobe of the liver cons istent with perforation. There is thickening along the ascending colon of uncertain etiology, possibl y secondary to hepatic dysfunction or segmental colitis. Vessels: No infrarenal aortic aneurysm. Chronically thrombosed main portal vein with cavernous transf ormation. PELVIS Reproductive organs: Unremarkable. Bladder: A Cope catheter decompresses the bladder. Pelvic lymph nodes: No pelvic adenopathy by size criteria. Bones: No aggressive osseous abnormality. Other: No significant ventral or inguinal hernia. IMPRESSION: 1. Again noted is a large hernia containing a significant portion of the stomach, which is extensivel y inflamed, and has developed a gastric wall abscess. 2. Additionally, there is likely gastric rupture. Anterior to the intra-abdominal portion of the stom ach is a very large early abscess with associated free air. 3. Question infiltrative neoplasm along the hilar portion of the liver. Consider cholangiocarcinoma. 4. 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 5. Moderate to severe splenomegaly, as before. 6. Remote cholecystectomy, air in the biliary tree. 7. Question possible segmental colitis involving the right colon. Above discussed with Jo Flores MD at the time of dictation on 12/10/2023 at 0833 hours. Reviewed by: Constantin Dodd MD on 12/10/2023 8:44 AM PDT Approved by: Constantin Dodd MD on 12/10/2023 8:44 AM PDT Station ID: [id number]
[2023-12-10] MEDS ORDERED: DEXMEDETOMIDINE 400 MCG/100 ML 100 ML IV PRN (08:49)
[2023-12-10] MEDS ORDERED: ETOMIDATE 40 MG/20 ML VIAL IVP ONE (08:53)
[2023-12-10] MEDS ORDERED: SUCCINYLCHOLINE 200 MG/10 ML VIAL ONE (08:54)
[2023-12-10] MEDS: SUCCINYLCHOLINE 200 MG/10 ML VIAL IVP STA (09:05)
[2023-12-10] MEDS: VECURONIUM 10 MG VIAL IVP STA (09:08)
[2023-12-10] MEDS: DEXMEDETOMIDINE 400 MCG in SODIUM CHLORIDE 0.9% 100ML 96 ML IV PRN (09:18)
[2023-12-10] MEDS: HYDROmorphone 0.5 MG/0.5 ML SYRINGE IVP STA (09:18)
--- NOTE | 2023-12-10 09:39 | XRAY Report ---
PROCEDURE: Chest for Line Placement INDICATIONS: post-intubation TECHNIQUE: One view of the chest was acquired. COMPARISON: 12/10/2023 at 0551 hours. FINDINGS: Surgical changes and devices: ET tube in satisfactory position, the tip which approximately 3.4 cm a kareen the jennifer. NG tube tip projects to the stomach below the diaphragm. There is a large hiatal her teofilo. Lungs and pleura: No pleural effusions or pneumothorax. Bibasilar compressive atelectasis. Mediastinum: Mediastinal contours appear normal. Heart size is normal. Large hiatal hernia. Bones and chest wall: No suspicious bony lesions. Overlying soft tissues appear unremarkable. IMPRESSION: 1. Lines and tubes in satisfactory position. 2. Large hiatal hernia containing stomach. The NG tube extends below the diaphragm into the portion o f the stomach below the hernia. 3. Bibasilar atelectasis. Reviewed by: Constantin Dodd MD on 12/10/2023 9:37 AM PDT Approved by: Constantin Dodd MD on 12/10/2023 9:37 AM PDT Station ID: [id number]
[2023-12-10] MEDS: iohexoL-300 100 ML VIAL IVP ONE (09:44)
[2023-12-10] MEDS: ETOMIDATE 40 MG/20 ML VIAL IVP STA (09:59)
[2023-12-10] MEDS ORDERED: DOPamine 400 MG/250 ML 400 MG/250 ML BAG IV ONE (10:24)
[2023-12-10] MEDS: DOPamine 400 MG/250 ML 400 MG/250 ML BAG IV STA (10:28)
[2023-12-10] MEDS ORDERED: MAGNESIUM SULFATE 2 GRAM 2 GM/50 ML BAG IV ONE ×2 (10:35→10:44)
[2023-12-10] MEDS: MAGNESIUM SULFATE 2 GRAM 2 GM/50 ML BAG IV ONE (10:43)
[2023-12-10 10:56] LABS: ABG BASE EXCESS -11.3 mmol/L (-2.0-3.0); ABG HCO3 18.3 mmol/L (22.0-26.0); ABG PCO2 59 mmHg (34-45); ABG PO2 57 mmHg (80-100); ABG TCO2 20.1 MMOL/L (21.0-29.0)
[2023-12-10 10:57] LABS: ALLEN TEST POSITIVE
[2023-12-10 10:58] LABS: ABG MODE OF VENTILATION SIMV; ABG RESPIRATORY RATE 20 b/min
[2023-12-10 11:06] LABS: ABG PH 7.11 (7.35-7.45)
[2023-12-10 11:07] LABS: ABG OXYGEN SATURATION 78 % (94-98)
[2023-12-10 11:17] VITALS: BP 89/58; O2SAT 95
--- NOTE | 2023-12-12 09:42 | ED Physician Documentation ---
ED Addendum - Addendum Addendum: 12/12/23 09:06 The pt was signed out to me at change of shift in extremely critical condition. Please see Dr. Moran's note for the record of this pt's presentation to the ED. Per sign-out report, review of the medical record, and conversation between myself and the pt's significant other, this is a patient with a distant h/o alcohol abuse (6-7 years since last drink per s/o) and diabetes, who has been struggling to keep weight on for about the past year. For the past couple of months, he has been actively losing weight. For about the past week, he has been complaining of abdominal pain and extreme fatigue, to the point where he can't even complete normal chores around the house, or it takes him hours. Last night, the pt seemed less "with it" than usual, and s/o thought he might be hypoglycemic. She checked his sugar and it was 45, so she had him eat some food. He was only able to eat a little, but it seemed to help, and he went to bed. He slept all night, but this morning when he got up to go to the bathroom, he became faint and collapsed. He was found to be hypoglycemic and hypotensive upon medics' arrival, and was immediately started on D10. HOwever, upon arrival the line was clamped for unknown reasons, and the pt's sugar was still in the 40's. Pt improved to 200's after arrival here, and did become a little more alert, but not completely. A femoral central line was placed by my colleague, and the pt was receiving 2 liters of IV fluid upon my assumption of care. Notable labs include WBC count 2.6 and lactic acid level >10. CT's of the the head, chest, and abd/pelvis were pending as of sign-out. The pt was also on a levophed drip, with improvement of BP to low 100's systolic and the time of my assumption of care. I evaluated the pt, who appeared gravely ill. The CT's were completed and demonstrated a large hiatal hernia with reflux of gastric contents into a distended esophagus, and a large anterior abdominal cavity abscess at 9 cm diameter. A gastric wall abscess with perforation was also demonstrated, along with a globally edematous gastric wall and possible liver mass. The pt had already been started on Zosyn, and was receiving his 3rd and 4th liters of NS. He had begun to desat into the 80'2, despite supplemental O2, and I felt between this and the risk of aspiration, he should be intubated. The pt was agreeable. He was given etomidate 10mg IV, plus succinylcholine 100mg IV. I encountered a large amount of turbid fluid upon elevating the epiglottis, and this was suctioned out, after which I could see the vocal cords clearly. An 8.0 tube was passed easily, with good capnometer color change and equal breath sounds bilaterally. Oxygenation immediately improved. OGT was passed and CXR demonstrated good placement of both tubes. The pt was given Vecuronium 10 mg and started on a Precedex drip. His ABG following intubation showed reasonable oxygenation, but acidosis with a pH of 7.1. I did have the RT increase the respiratory rate to decrease the acidosis. The pt was obviously gravely ill, and his only hope was emergent operative management. He was too critical for our hospital and small operating room, so I began to reach out to other hospitals. I was able to discuss the case with Dr. Doll, the trauma surgeon second helper at [facility], who graciously accepted this patient in transfer. I was directed to speak with the emergency physician on duty, Dr. Alcazar, as the pt would be stopping in the ED for for evaluation by surgery team, prior to going to OR. I did give report to Dr. Alcazar, as well, and [facility] was summoned. I was notified by the nurse that the pt's blood pressure was dropping, despite being maxed out on Levophed, and that his MAP was now in the 30's. A 5th liter of IV fluid was started, Precedex was discontinued, and I did add dopamine with aggressive titration protocol, which brought the pt's MAP to the 60's. The pt had been in sinus tachycardia in the 110's-120's throughout the time I had him, and remained as such. I d/w pt's significant other that the pt is extremely critically ill, and that there is a very high probability of . He may not even survive the 15-min flight to [place], but at this point, it's his only hope. His significant other expressed understanding, and was agreeable to transfer of the pt. The [facility] crew did arrive, and pt was transferred. Critical care documentation for my portion of patient care: Critical care time was necessary, due to high probability of imminent decline and , due to septic shock and respiratory failure, secondary to multiple intraabdominal abscesses and gastric perforation. Critical care time: 90 minutes Includes ordering and reviewing labs and diagnostic imaging studies, ventilator management, evaluating cardiac output and cardiac rhythm, discussions with family about pt's condition and treatment options, discussion with consultants, and documentation. Does not include intubation. Final impression: 1. Intraabdominal abscesses 2. Gastric perforation 3. Respiratory failure 4. Septic shock 5. Liver mass Disposition: Transferred to [facility] in critical condition.
== END 2023-12-10 11:07 | disposition short-term general hospital (02) ==
LOC: ED 05:32
DX: A41.9 Sepsis, unspecified organism (principal); R65.21 Severe sepsis with septic shock; E10.649 Type 1 diabetes mellitus with hypoglycemia without coma; E78.00 Pure hypercholesterolemia, unspecified; K65.1 Peritoneal abscess; J96.90 Respiratory failure, unspecified, unspecified whether with hypoxia or hypercapnia; R16.0 Hepatomegaly, not elsewhere classified; K31.89 Other diseases of stomach and duodenum; K44.9 Diaphragmatic hernia without obstruction or gangrene; F17.200 Nicotine dependence, unspecified, uncomplicated; Z79.899 Other long term (current) drug therapy
CPT/HCPCS: 36415; 36556; 36600; 70450; 71045; 71260; 74177; 80053; 80143; 80179; 80306; 81001; 82009; 82077; 82803; 83605; 83690; 83735; 84484; 85025; 87040; 87077; 87154; 87633; 93005; 94002; 96361; 96365; 96375; 99291; J0330; Q9967; 81003; 87086; 87181